=== PATIENT | female | born 1950 | race Caucasian/White ===

== ENCOUNTER 2016-10-29 21:42 | Inpatient (IN) | payer MEDICARE ==
[~2016-10-29] VITALS: Ht 160 cm; Wt 40.9 kg
[~2016-10-29 21:42] MED LIST: ALBU8.5H2 IH; ALEN70TA2 PO; Albuterol/Ipratropium NEB; CEFU250T2 PO; ERGO500029 PO; FLUT12AE8 IH; Hydrocodone/Acetaminophen PO; KLO5T PO; PARO40TA3 PO; PRE20 PO
[2016-10-29 21:45] VITALS: BP 114/76; PULSE 131; RESP 27; O2SAT 93
--- NOTE | 2016-10-29 21:48 | ED.REPORT ---
HPI-General Illness Date of Service Oct 29, 2016 ED Provider: Jose R Talbot MD The patient is a 66 year old female with history of COPD and pneumonia, who presents to the emergency department by EMS for difficulty breathing that has worsened over the last few days. Her symptoms have drastically worsened throughout the day. She has also had a cough and congestion. She was started on Prednisone yesterday. She normally takes Advair, Spiriva, and Nebulizer treatments for her breathing. She was started on home oxygen last week. The patient smokes about 1 PPD. She denies fever, chills or chest pain. Nursing Notes Stated Complaint: DIFFICULTY BREATHING Chief Complaint: Respiratory Complaints Nursing Notes Reviewed: Yes Allergies: Coded Allergies: No Known Allergies (Unverified Allergy, Unknown, 07/11/14) Scheduled Alendronate Sodium (Fosamax) 70 Mg Tablet 70 MG PO QW MONDAYS Cholecalciferol (Vitamin D3) (Vitamin D3) 2,000 Unit Tablet 2,000 UNIT PO QAM Estradiol (Estrace) 42.5 Gm Cream.appl 1 G VG TWICE WEEKLY Fluticasone/Salmeterol (Advair 250-50 Diskus) 60 Puff/Inh Disk 1 PUFF IH BID Paroxetine (Paroxetine) 40 Mg Tablet 40 MG PO HS Prednisone (PredniSONE) 20 Mg Tablet 40 MG PO DAILY 40 mg daily x 3 days then 20 mg daily x 3 days then 10 mg daily x 3 days then 5 mg daily x 3 days then stop. Tiotropium [place] (Spiriva) 18 Mcg Cap.w.dev 18 MCG IH DAILY Scheduled PRN Albuterol HFA (Proair HFA) 8.5 Gm Hfa.aer.ad 1-2 PUFFS IH Q4 PRN PRN For Shortness of Breath Albuterol Neb Soln (Albuterol Neb Soln) 2.5 Mg/3 Ml Vial.neb 2.5 MG INHALATION Q4H PRN PRN For Shortness of Breath Clobetasol Propionate/Emoll (Clobetasol Emollient 0.05% Crm) 15 Gm Cream..g. 1 APPL TOP BID PRN PRN RASH Clonazepam (Clonazepam) 0.5 Mg Tab 0.5-1 MG PO BID PRN PRN For Anxiety Mometasone Furoate (Asmanex) 110 Mcg Aer.pow.ba 110 MCG IH [id number] PRN PRN For Shortness of Breath General Time Seen by MD: 21:45 Chief Complaint Other (shortness of breath) Hx Obtained From: Patient, Spouse, EMS Arrived By: Ambulance Sudden in Onset?: No Symptom Duration: Since onset Severity: Current: No pain currently Severity: Maximum: No pain Recent Healthcare: Recent doctor visit Similar Sx Previous: Yes Past Medical History Past Medical History Psoriasis Pneumonia Reports: COPD Past Surgical History Hip replacement Polyp surgery Family History Noncontributory Smoking History Current Every Day Smoker (1 PPD) Social History Other Social History: Good social support, , Local resident Ambulatory Status Independent Review of Systems Full Review of Systems Constitutional: Denies: Chills, Fever Ears / Nose / Throat: Reports: Nasal congestion Respiratory: Reports: Non-productive cough, Shortness of breath Cardiovascular: Denies: Chest pain Complete sys rev & neg: except as marked. Physical Exam Vital Signs Vital Signs Date Time Temp Pulse Resp B/P Pulse Ox O2 Delivery O2 Flow Rate FiO2 10/29/16 22:33 111 26 98 BiPAP 50 10/29/16 22:31 26 98 50 10/29/16 22:30 110 24 150/74 98 BiPAP 10/29/16 21:45 35.8 131 27 114/76 93 BiPAP Initial VS: Reviewed Head / Eyes: Atraumatic, Normocephalic, PERRL ENT: Mucous membranes moist, Conjunctiva normal, No scleral icterus Neck: Supple, Non-tender, Full range of motion Lymphatic: No lymphadenopathy Extremities: Vascular intact, Neuro intact, No swelling, No tenderness Skin: Warm, Dry, No cyanosis Neurologic: Alert, Oriented, Nonfocal Psychiatric: Mood/affect normal, Behavior normal, Normal thought content General/Constitutional: Awake, Alert Respiratory / Chest: Breath sounds = bilat Wheezing / Retractions: Positive: Prolonged exp phase, Wheezing expiratory On BiPAP with FiO2 of 70 % sating at 96 %. Coarse breath sounds throughout both lung beavers. Cardiovascular: Regular rhythm, Heart sounds NL, No murmurs, No rubs Heart Rate / Rhythm: Positive: Tachycardia Abdomen: Atraumatic, Soft, Non-tender, No guarding, No rebound Interpretation & Diagnostics Lab Results Interpretation Result Diagram: 10/29/16 2145 10/29/16 2145 Test 10/29/16 21:45 White Blood Count 12.6th/mm3 (3.8-10.1) Red Blood Count 4.73mil/mm3 (3.90-5.20) Hemoglobin 15.4g/dL (12.0-15.6) Hematocrit 46.5% (35.0-46.0) Mean Corpuscular Volume 98.3fL (81-100) Mean Corpuscular Hemoglobin 32.6pg (27.0-35.0) Mean Corpuscular Hemoglobin Concent 33.1% (32.0-37.0) Red Cell Distribution Width 13.4% (12.3-15.4) Platelet Count 463bil/L (150-400) Neutrophils (%) (Auto) 78.6% (40-74) Lymphocytes (%) (Auto) 16.0% (14-46) Monocytes (%) (Auto) 5.1% (4-12) Eosinophils (%) (Auto) 0% (0-5) Basophils (%) (Auto) 0.1% (0-3) Sodium Level 132mEq/L (134-144) Potassium Level 5.3mEq/L (3.5-5.2) Chloride Level 93mEq/L (97-108) Carbon Dioxide Level 23mmol/L (18-29) Blood Urea Nitrogen 11mg/dL (8-27) Creatinine 0.49mg/dL (0.57-1.00) Estimat Glomerular Filtration Rate 181mL/min (>59) Glucose Level 206mg/dL (60-99) Calcium Level 10.1mg/dL (8.5-10.1) Total Bilirubin 0.2mg/dL (0.0-1.2) Aspartate Amino Transf (AST/SGOT) 27U/L (0-50) Alanine Aminotransferase (ALT/SGPT) 20U/L (0-32) Alkaline Phosphatase 100U/L (25-165) Troponin T 0.010ug/L (0.0-0.011) Pro-B-Type Natriuretic Peptide 626.1pg/mL (0-301) Total Protein 7.2g/dL (6.4-8.4) Albumin 4.1g/dL (3.4-5.0) Procalcitonin 0.07ng/mL (0.00-0.08) Hold Seth Top Tube Received (Received) ECG Interpretation ECG Interpretation: Sinus tachycardia with a rate of 124 bpm LAD Poor baseline quality EKG Borderline ST elevation in V2 and V3 No acute T wave abnormalities When compared to prior EKG taken on 07/11/2014 the patient is now more tachycardic Time: 22:00 Interpreted by: ED physician X-Ray Chest Interpretation Chest Xray Interpretation: IMPRESSION: Very severe COPD, chronic interstitial prominence. Dictated by: Tyson Beckham M.D. on 10/29/2016 at 22:12 Interpretation / Wet Read by: Interpret - Radiologist Re-Eval/Medical Decision Med Decision/Clinical Course The patient is a 66 year old female with history of COPD and pneumonia, who presents to the emergency department by EMS for difficulty breathing that has worsened over the last few days. Her symptoms have drastically worsened throughout the day. She has also had a cough and congestion. She was started on Prednisone yesterday. She normally takes Advair, Spiriva, and Nebulizer treatments for her breathing. She was started on home oxygen last week. The patient smokes about 1 PPD. She denies fever, chills or chest pain. Upon arrival the patient is in moderate respiratory distress, she has good oxygen saturation on BiPAP with FiO2 of 70%. Pulmonary examination is consistent with severe COPD exacerbation. She was reportedly in the 70s to 80s in the field by EMS. 125 mg of IV methylprednisolone was administered along with a 1 L fluid bolus. She was placed on reil-aq-[id number] DuoNebs, continuous albuterol neb. CXR: Very severe COPD, chronic interstitial prominence. LABS: CBC: mild leukocytosis, otherwise unremarkable, CMP: kidney function WNL, K 5.3, troponin negative Presentation at this time consistent with severe COPD exacerbation. No clinical evidence suggestive that this is related to pulmonary embolism, pneumonia or pneumothorax. Initial screening workup for acute coronary syndrome is negative. Discussed with admitting hospitalist accepted to the ICU for further management. She remains on BiPAP and arterial blood gases are pending at this time. Source of Hx: Old records, EMS, Family Time of Eval: 22:15 Re-Evaluation/Progress Note: Discussed results, diagnosis, and plan for admission. All questions were addressed. Consultation : Referral / Consult Name: Salina Ro DO Consulted With: Hospitalist Requested Call at: 22:44 Call Returned at: 22:49 Oracle Ebs Architect: Will see patient, Agrees with eval, Agrees with plan, Accepts admit Counseled Regarding: Diagnosis, Lab results, Need for admission Discharge & Departure Primary Impression: Acute exacerbation of chronic obstructive pulmonary disease Additional Impressions: Acute respiratory failure Respiratory failure complication: hypoxia Qualified Code: J96.01 - Acute respiratory failure with hypoxia Hypoxia Hyperkalemia Disposition: ADMITTED TO HOSPITAL Discharge Condition All VS Reviewed: Yes Condition: Stable Referrals: Shimon Joshi MD (PCP) Crit Care Except Billable Proc Time Spent: 105-134 minutes Services Performed: Patient management by me, Time spent at bedside, Reviewing test results, Reviewing imaging, Discussing patient care, Documentation in record, Time with fam/surrogate Scribe Attestation Portions of this note were transcribed by Zully Álvarez. I, Dr. Talbot personally performed the history, physical exam and medical decision-making; I reviewed and confirmed the accuracy of the information in the transcribed note. Signed by: Ross Browne, 10/29/2016 at 2300. copies to: Shimon Joshi MD, Beck O MD Oct 29, 2016 21:48 Zully Álvarez Oct 29, 2016 21:54
[2016-10-29] MEDS ORDERED: Albuterol-Ipratropium 3 mL Inhalation Solution ONE (21:50)
[2016-10-29] MEDS ORDERED: Albuterol 0.5% (5mg/mL) 20 mL Inhalation Solution ONE (21:52)
[2016-10-29 21:58] LABS: BASOPHILS % (AUTO) 0.1 % (0-3); EOSINOPHILS % (AUTO) 0 % (0-5); MONOCYTES % (AUTO) 5.1 % (4-12); Mean Corpuscular Hemoglobin 32.6 pg (27.0-35.0); Mean Corpuscular Volume 98.3 fL (81-100); NEUTROPHILS % (AUTO) 78.6 % (40-74); Platelet Count 463 bil/L (150-400)
[2016-10-29] MEDS ORDERED: MethylprednisoLONE Sodium Succinate 62.5 mg/mL 2 mL Inj IVPUSH ONE (22:00)
[2016-10-29] MEDS ORDERED: 0.9% Sodium Chloride 1,000 ML IV ONE (22:00)
--- NOTE | 2016-10-29 22:14 | DRSVH ---
PROCEDURE: X-RAY CHEST ONE VIEW, PORTABLE ([id number]) INDICATIONS: DYSPNEA TECHNIQUE: One view of the chest was acquired. COMPARISON: None. FINDINGS: Surgical changes and devices: None. Lungs and pleura: No pleural effusions or pneumothorax. Lungs are abnormal with a chronic interstit ial prominence and very severe COPD. Mediastinum: Mediastinal contours appear normal. Heart size is normal. Bones and chest wall: No suspicious bony lesions. Overlying soft tissues appear unremarkable. IMPRESSION: Very severe COPD, chronic interstitial prominence. Dictated by: Tyson Beckham M.D. on 10/29/2016 at 22:12 Approved by: Tyson Beckham M.D. on 10/29/2016 at 22:12
[2016-10-29 22:23] LABS: TROPONIN T 0.01 ug/L (0.0-0.011)
[2016-10-29 22:30] VITALS: BP 150/74; PULSE 110; RESP 24; O2SAT 98
[2016-10-29 22:31] VITALS: RESP 26; O2SAT 98
[2016-10-29 22:33] VITALS: PULSE 111; RESP 26; O2SAT 98
[2016-10-29] MEDS ORDERED: Polyethylene Glycol (PEG) 17 Gm Powder PO PRN (23:25)
[2016-10-29] MEDS ORDERED: Alum-Mag Hydrox-Simeth 30 mL Suspension PO PRN (23:25)
[2016-10-29] MEDS ORDERED: Ondansetron 2 mg/mL 2 mL Inj IVPUSH PRN (23:25)
[2016-10-29] MEDS ORDERED: IPRA3AMP IH (23:43)
[2016-10-29 23:47] VITALS: BP 165/81; PULSE 133; RESP 30; O2SAT 98
--- NOTE | 2016-10-29 23:47 | PCM.HPMED ---
Subjective Date of Service Oct 29, 2016 Primary Provider: Admitting Physician: Salina Ro DO Primary Care Physician: Shimon Joshi MD Attending Physician: Salina Ro DO Admit Status: From the Emergency Department, [facility] Telemetry Chief Complaint: Shortness of breath with nonproductive cough and increasing anxiety History of Present Illness: Ms. Elizalde is a pleasant 66-year-old female with a history of chronic respiratory failure secondary to advancing COPD in the setting of ongoing tobacco use, that presented to [facility] with a one-week history of progressive shortness of breath despite home oxygen therapy and outpatient steroid use. She was admitted for evaluation and treatment of acute on chronic respiratory failure likely secondary to exacerbation of COPD. Hospital day 1 Ms. Elizalde shares that for the recent week, she has been progressively short of breath despite home oxygen therapy, with associated increase in anxiety, nonproductive cough, decreased appetite, and inability to sleep. She states that she was recently seen by a air valve repairer in [place] earlier this month, and was prescribed steroid therapy and home oxygen use. She has not noticed an improvement in her symptoms. Home oxygen is reported 3 L continuous. She shares that she has been progressively worsening in terms of her respiratory status since June 2016. She denies any associated fever, chills, nausea, vomiting, abdominal pain, dysuria, headache, acute vision changes, productive cough. is present at time of interview, and he admits to a recent illness prior to this admission where he was experiencing cold-like symptoms, which self resolved without medical intervention. Ms. Elizalde reports that she has been on and off outpatient steroid therapy for many months now, and it was not until earlier this month that she was able to see a air valve repairer. She denies any other medical conditions other than her advancing COPD, ongoing tobacco use, and anxiety with depression. She continues to use tobacco on a daily basis, reporting 15-20 cigarettes per day, which is decreased from her 1.5 packs per day. She has a 50 year smoking history. In the ED, she was immediately placed on BiPAP therapy. Initial vitals reveal temperature 35.8, pulse 131, respiratory rate 27, blood pressure 114/76; initial labs revealed a white count of 12.6, with neutrophil count of 79, sodium 132, potassium 5.3, carbon dioxide 23, and proBNP 626; initial pro- calcitonin 0.07. Initial therapies included azithromycin 500 mg, Solu-Medrol 125mg IV, and nebulizer treatments. She was transferred to [facility] with BiPAP in place, in stable condition. Review of Systems: Complete ROS obtained; pertinent positives and negatives as noted above Allergies Coded Allergies: No Known Allergies (Unverified Allergy, Unknown, 07/11/14) Home Medications Obtained from ED note, verified with patient: Scheduled ([Albuterol/Ipratropium]) 3 ML NEBU 3 ML NEB QID Alendronate Sodium (Fosamax) 70 Mg Tablet 70 MG PO QW Ergocalciferol (Vitamin D2) (Vitamin D2) 50,000 Unit Capsule 50,000 UNIT PO QW Fluticasone Propionate (Flovent HFA 110 mcg) 12 Gm Aer.w.adap 2 PUFFS IH BID Paroxetine (Paroxetine) 40 Mg Tablet 40 MG PO DAILY Prednisone (PredniSONE) 20 Mg Tablet 40 MG PO DAILY 40 mg daily x 3 days then 20 mg daily x 3 days then 10 mg daily x 3 days then 5 mg daily x 3 days then stop. Scheduled PRN ([Hydrocodone/Acetaminophen]) 1 TAB TABLET 1 TAB PO Q6 PRN PRN For Pain Albuterol HFA (Proair HFA) 8.5 Gm Hfa.aer.ad 1-2 PUFFS IH Q4 PRN PRN For Shortness of Breath Clonazepam (Clonazepam) 0.5 Mg Tab 0.5-1 MG PO BID PRN PRN For Anxiety PMH Chronic respiratory failure COPD Anxiety/depression Patient denies any cardiac history including hypertension, previous myocardial infarction, or elevated cholesterol levels. Patient denies diabetes, or any other medical condition other than respiratory Surgical History Right hip replacement Family History Patient denies any knowledge of cardiac or respiratory conditions. States both parents had alcoholism Social History Hx Alcohol Use: No Hx Substance Use: No Hx Tobacco Use: Yes Smoking Status: Current Every Day Smoker (1 PPD) Living Arrangement: with Family (, local) Exam Vital Signs Vital Sign - Last Date Time Temp Pulse Resp B/P Pulse Ox O2 Delivery O2 Flow Rate FiO2 10/29/16 22:33 111 26 98 BiPAP 50 10/29/16 22:30 150/74 10/29/16 21:45 35.8 Exam General: Alert and oriented x3; thin and frail; pleasant and cooperative, in moderate distress secondary to decreased respiratory status HEENT: Atraumatic, EOMI, sclera and icteric, BPAP mask in place, mucous membranes moist Chest: Atraumatic, notably thinned with prominent rib features Cardiac: Accentuated tone secondary to body habitus, tachycardia with rate approximately 120, no murmurs appreciated Respiratory: Poor airflow all beavers with significant expiratory wheeze and coarse sounds throughout; rate in 30s at time of examination Abdomen: Soft, nontender, nondistended; thin Skin: Warm and dry Extremities: No edema appreciated of the lower bilateral extremities Neuro: Cranial nerves II through XII grossly intact, speech without slurring, facial expressions equal and symmetric Psych: Appropriate mood, affect, and responses to questioning Lab and Diagnostics Result Diagram: 10/29/16214410/29/162144 Assessment & Plan Ms. Elizalde is a pleasant 66-year-old female with a history of chronic respiratory failure secondary to advancing COPD in the setting of ongoing tobacco use, that presented to [facility] with a one-week history of progressive shortness of breath despite home oxygen therapy and outpatient steroid use. She was admitted for evaluation and treatment of acute on chronic respiratory failure likely secondary to exacerbation of COPD. Hospital day 1 Acute on chronic respiratory failure, present on admission. Under therapy - Patient reports home oxygen 3 L, continuous - Currently on BiPAP therapy - CXR 10/29: No acute cardiopulmonary process, but evidence of severe COPD with hyperinflated lungs - Awaiting ABG - Treat underlying cause: Likely secondary to exacerbation COPD Suspected acute exacerbation COPD, present on admission. Under evaluation - Patient reports increase in cough, but nonproductive; significant increase in shortness of breath and oxygen requirements - DDx: Infection, ongoing tobacco use, progression of disease - Methyl Pred 125 mg IV q6 - Azithro daily - Respiratory PCR, pro calcitonin, strep pneumo antigen, Legionella antigen ordered - AM labs Leukocytosis, acute, present on admission. Monitored - On admit: WBC 12.6; absence of fever and chills - Patient reports recent use of prednisone therapy as outpatient, likely the cause - Monitor Elevated BNP, chronicity unknown. Presumed stable - On admit: proBNP 626 - No evidence pulmonary edema on initial CXR - Consider echo and addition of Lasix based on repeat imaging Tobacco use disorder, chronic. Ongoing - Patient reports 50 year history of 1-1.5 packs per day - Nicotine 21 mg patch daily - Patient states she knows she needs to quit, but it is difficult - Continue to emphasize dangers of cigarette smoking and oxygen use Protein calorie malnutrition, BMI 15, chronic. Ongoing - Admit: BMI 15 - Dietary/nutrition consultation placed Anxiety, chronic. Under therapy - Patient reports history of anxiety and depression - Continue Paxil - Ativan as needed - PRN: Pain/anti-emetic/anxiety/bowel/fever - DVT: Hep q8 - GI: Not indicated - Diet: General, with dietary consult - Code: Full code Patient status: Due to severity of presenting symptoms, risk of adverse events, and likely course of care, anticipated length of stay is greater than 2 midnight ; patient admitted as inpatient to [facility] Pain Evaluation: Adequate Pain Control GI Prophylaxis: Not indicated VTE Prophylaxis: Sub-Q Heparin (Unfractionated) Resuscitation Status: CPR: Attempt Resuscitation Attending Statement The patient was seen and examined together with house staff on 10/30/16 and I agree with the history, exam and plan as outlined in the note above. Anay Heaton DO Oct 29, 2016 23:47 Salina Ro DO Oct 30, 2016 03:29
[2016-10-29] MEDS ORDERED: ESTR42.52 VG (23:49)
[2016-10-29] MEDS ORDERED: TIOT18CA3 IH (23:49)
[2016-10-29] MEDS ORDERED: ALBU2.5V4 INHALATION (23:49)
[2016-10-29] MEDS ORDERED: CLOB15CR3 TOP (23:49)
[2016-10-29] MEDS ORDERED: ADV250INH IH (23:49)
[2016-10-29] MEDS ORDERED: CHOL200025 PO (23:51)
[2016-10-29 23:58] VITALS: BP 165/81; RESP 30; O2SAT 99
[2016-10-30] VITALS (15 sets, daily range): BP systolic 95–141; BP diastolic 54–88; PULSE 95–129; RESP 18–28; O2SAT 86–98
[2016-10-30] MEDS ORDERED: PARoxetine 20 mg Tablet PO SCH (00:15)
[2016-10-30] MEDS: 0.9% Sodium Chloride 1,000 ML IV SCH ×4 (00:37→19:25)
[2016-10-30] MEDS: Heparin 5,000 Unit/mL Inj SUBQ SCH ×3 (00:38→16:37)
[2016-10-30] MEDS ORDERED: MOME0.132 IH (00:52)
[2016-10-30] MEDS: PARoxetine 20 mg Tablet PO SCH ×2 (00:53→21:07)
--- NOTE | 2016-10-30 01:06 | NUR ---
admit note pt to floor scooted over to bed, bipap placed on pt at 50%, pts SpO2 high 90s, RR mid 30s and HR 130s, pt very anxious about bipap ability to breath, RT and this nurse alone with able to calm pt down a bit. answered most questions for admit, pt denies any pain, tele ST 120-130s. 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
[2016-10-30] MEDS ORDERED: MethylprednisoLONE Sodium Succinate 62.5 mg/mL 2 mL Inj IVPUSH SCH (02:30)
[2016-10-30 02:59] LABS: BASOPHILS % (AUTO) 0 % (0-3); EOSINOPHILS % (AUTO) 0 % (0-5); Mean Corpuscular Hemoglobin 31.7 pg (27.0-35.0); Mean Corpuscular Volume 98.3 fL (81-100); NEUTROPHILS % (AUTO) 95.3 % (40-74); Platelet Count 341 bil/L (150-400)
[2016-10-30] MEDS: Albuterol-Ipratropium 3 mL Inhalation Solution NEB SCH ×5 (03:21→20:03)
[2016-10-30 03:25] LABS: Magnesium 1.9 mg/dL (1.6-2.6); Phosphorus 3.1 mg/dL (2.5-4.9)
[2016-10-30] MEDS: Albuterol 2.5 mg/3 mL Inhalation Solution NEB PRN (03:37)
[2016-10-30] MEDS ORDERED: cefTRIAXone Inj 2,000 MG in Dextrose 5% Minibag Plus 50 ML IV SCH (04:50)
--- NOTE | 2016-10-30 04:59 | ABG ---
DateTimeAnalyzed 04:56:00 -_ pH ____6.976 - 7.350 7.450 pCO2 129 -mmHg 35.0 45.0 pO2 ___75.3__ -mmHg 69.0 116 HCO3- ___28.6__ -mmol/L 22.0 26.0 ABE ___-8.1__ -mmol/L -2.0 2.0 tHb ___13.6__ -g/dL O2Hb ___85.5__ -% COHb ____0.2__ -% MetHb ____0.8__ -% sO2 ___86.4__ -% FIO2 ___50.0__ -% Pressure_Support ___12.0__ -cmH2O PEEP ____5.0__ -cmH2O Set_RR ___18.0__ -b/min Drawn By blf - Date/Time Notified____ 04:58:00 -_ Spontaneous_RR ___20.0__ -b/min Oxygen Device 1 ____BIPAP - Notified By blf - Notified Whom ___DR. SULLENSCRANTON,DR.HERNANDEZ - B 757 -mmHg tO2 ___16.5__ -Vol% Ba test N/A -
[2016-10-30] MEDS ORDERED: Sodium Bicarb (50 mEq) 8.4% 1 mEq/mL 50 mL Syringe ONE (05:09)
[2016-10-30] MEDS ORDERED: fentaNYL 2,500 mCg/250 mL 2,500 MCG in IV Premix 1 EACH IV PRN (05:16)
[2016-10-30] MEDS: Propofol Inj 1,000,000 MCG in IV Premix 1 EACH IV SCH ×2 (05:16→16:39)
[2016-10-30] MEDS ORDERED: Propofol 10,000 mCg/mL 100 mL Inj ONE (05:28)
[2016-10-30] MEDS ORDERED: PIPERACILLIN TAZO IV ONE ×2 (05:30→05:31)
[2016-10-30] MEDS ORDERED: DEXTROSE 5% IV ONE ×2 (05:30→05:31)
[2016-10-30] MEDS ORDERED: PHA MIX IV ONE (05:31)
--- NOTE | 2016-10-30 05:38 | ER ---
[address] [address] EMERGENCY DEPT ADMIT NOTE PATIENT: WILLIE FINLEY : 1950 MR#: [id number] ADMIT: 10/29/2016 JOB ID: [id number] DATE: 10/30/2016 PROCEDURE: Endotracheal intubation. INDICATION: Respiratory failure with hypercarbia and sedation. DESCRIPTION OF PROCEDURE: The patient's potassium was verified as not significantly elevated. Upper denture was removed and secured. No lower denture was in place. Etomidate 20 mg was given for initial induction, followed by 5 mL/100 mg of succinylcholine, with good anesthesia and good relaxation. The resident physician was initially supervised in inserting the René laryngoscope. With my assistance, the cords were visualized and I placed the 7.5 endotracheal tube through the cords under direct visualization. This was verified by end-tidal CO2, and a chest x-ray is now pending. The tube was secured at 21 cm at the teeth. Breath sounds were noted equal bilaterally. Care was returned to the inpatient medical team.
[2016-10-30 05:40] LABS: APPEARANCE,URINE CLOUDY (CLEAR,HAZY); COLOR,URINE YELLOW (YELLOW); OCCULT BLOOD,URINE NEGATIVE (NEGATIVE); UROBILINOGEN,URINE NORMAL (NORMAL)
--- NOTE | 2016-10-30 05:48 | NUR ---
intubated pt respiratory decompensating RT in room unable to wake pt up, ABGs obtained and decision to intubated made, ED intubated, vent setting FiO2 50% with peep 7 TV 370, OG to suction and edwards placed, propofol started. labs drawn, MD called , report given
--- NOTE | 2016-10-30 06:39 | ABG ---
DateTimeAnalyzed 06:36:00 -_ pH ____7.210 - 7.350 7.450 pCO2 ___70.5__ -mmHg 35.0 45.0 pO2 163 -mmHg 69.0 116 HCO3- ___27.2__ -mmol/L 22.0 26.0 ABE ___-2.0__ -mmol/L -2.0 2.0 tHb ___13.1__ -g/dL O2Hb ___97.4__ -% COHb ____0.5__ -% MetHb ____0.8__ -% sO2 ___98.7__ -% FIO2 ___50.0__ -% PRVC 17 - PEEP ____7.0__ -cmH2O Vt __370.0__ -L Drawn By blf - Date/Time Notified____ 06:39:00 -_ Spontaneous_RR ___22.0__ -b/min Oxygen Device 1 VENTILATOR - Notified By blf - Notified Whom ___DR. SULLENBERGER -____ B 757 -mmHg tO2 ___18.2__ -Vol% Ba test N/A -
[2016-10-30] MEDS ORDERED: cefTRIAXone Inj 2,000 MG in Dextrose 5% Minibag Plus 50 ML IV ONE (08:30)
--- NOTE | 2016-10-30 08:49 | DRSVH ---
PROCEDURE: X-RAY CHEST ONE VIEW, PORTABLE ([id number]) INDICATIONS: Post intubation to verify ETT placement TECHNIQUE: One view of the chest was acquired. COMPARISON: [facility], CR, XR CHEST 1VW (PORTABLE), 10/29/2016, 21:43. Chaim Avitia, C R, CHEST 2VW, 09/02/2016, 3:55 PM. FINDINGS: Surgical changes and devices: Endotracheal and nasogastric tube positioning normal. Lungs and pleura: No pleural effusions or pneumothorax. Lungs are abnormal with severe COPD and chr onic mild interstitial prominence.. Mediastinum: Mediastinal contours appear normal. Heart size is normal. Bones and chest wall: No suspicious bony lesions. Overlying soft tissues appear unremarkable. IMPRESSION: Very severe COPD, previously present. Endotracheal and nasogastric tube positioning norm al. Dictated by: Tyson Beckham M.D. on 10/30/2016 at 8:48 Approved by: Tyson Beckham M.D. on 10/30/2016 at 8:48
--- NOTE | 2016-10-30 08:51 | DRSVH ---
PROCEDURE: X-RAY CHEST ONE VIEW, PORTABLE ([id number]) INDICATIONS: s/p intub/poss PTX TECHNIQUE: One view of the chest was acquired. COMPARISON: [facility], CR, XR CHEST 1VW (PORTABLE), 10/30/2016, 5:02. [facility], CR, XR CHEST 1VW (PORTABLE), 10/29/2016, 21:43. FINDINGS: Surgical changes and devices: Endotracheal tube tip extends almost to the rafael, nasogastric tube solorzano s been placed with its side port below the EG junction. Lungs and pleura: No pleural effusions or pneumothorax. Lungs are abnormal with severe COPD. Mediastinum: Mediastinal contours appear normal. Heart size is normal. Bones and chest wall: No suspicious bony lesions. Overlying soft tissues appear unremarkable. IMPRESSION: Severe COPD, endotracheal tube tip approximates the rafael. This could be potentially ob structive depending on patient had a neck positioning and therefore the endotracheal tube is anticipa ciaran to be withdrawn somewhat. Nasogastric tube positioning normal. Dictated by: Tyson Beckham M.D. on 10/30/2016 at 8:48 Approved by: Tyson Beckham M.D. on 10/30/2016 at 8:49
--- NOTE | 2016-10-30 09:41 | ABG ---
DateTimeAnalyzed 09:38:00 -_ pH ____7.412 - 7.350 7.450 pCO2 ___44.6__ -mmHg 35.0 45.0 pO2 137 -mmHg 69.0 116 HCO3- ___27.8__ -mmol/L 22.0 26.0 ABE ____3.3__ -mmol/L -2.0 2.0 tHb ___12.2__ -g/dL O2Hb ___97.5__ -% COHb ____0.8__ -% MetHb ____0.9__ -% sO2 ___99.2__ -% FIO2 ___40.0__ -% PEEP ____5.0__ -cmH2O Set_RR ___20.0__ -b/min Vt __370.0__ -L Drawn By as - Date/Time Notified____ 09:40:00 -_ Spontaneous_RR ___20.0__ -b/min Oxygen Device 1 VENTILATOR - Notified By ams - Notified Whom _dr johnson - B 758 -mmHg tO2 ___16.9__ -Vol% Ba test _Positive -
[2016-10-30] MEDS: MethylprednisoLONE Sodium Succinate 62.5 mg/mL 2 mL Inj IVPUSH SCH ×3 (10:05→22:01)
[2016-10-30] MEDS: Famotidine Inj 20 MG in IV Premix 1 EACH IV SCH ×2 (10:07→21:05)
--- NOTE | 2016-10-30 11:04 | NUR ---
NUTRITION ASSESSMENT: ASSESS: Pt is a 66yo F admitted for COPD exacerbation. Pt was transferred to CCU and intubated due to respiratory distress. Pt is significantly underwt likely due to chronic respiratory distress, current BMI is 14.9kg/m2. Per chart review, pt UBW is ~43kg. Received verbal order than AM to start TF. PMHX: chronic respiratory failure, COPD, Anxiety LABS: Reviewed. Na 131, Cl 96, Rubber Compounder Formulator .33, Glu 155, Alb 4.1 MEDS: Reviewed. Fentanyl GI: 0 BM SKIN: Bertram 15 CURRENT WTS: 38.1kg, BMI 14.9kg/m2, UBW 43kg, IBW: 52.3kg DIET: NPO EST. NEEDS: wt gain, vent Kcals: 840-955kcal/day (22-25kcal/kg) Pro: 45-60g/day (1.2-1.5g/kg) Fluids: ~955ml/day (25ml/kg) NUTRITION DIAGNOSIS: 1.) Inadequate oral intake related to decreased ability to consume sufficient energy as evidenced by current NPO status 2.) Severe pro/kcal malnutrition related to chronic respiratory failure as evidence by pt with BMI of 14.9kg and visible muscle and fat loss. NUTRITION INTERVENTION: 1.) Received verbal to start TF in morning rounds. Due to pts BMI, recommend start TF of Pulmocare at 10ml/hr and hold x24 hrs to monitor tolerance. Will monitor labs closely for signs of re-feeding. If tolerated, recommend advance by 10ml q 12hr until reach goal rate of 28ml/hr to provide 924kcal and 38.5g pro (100% kcal and 85% pro needs) 2.) Once at goal rate, recommend adding 1 packet prosource to better meet protein needs MONITOR / EVAL: NPO, TF start?, labs, wt, GI, POC, nutrition status. Will continue to monitor per high nutrition risk guidelines.
--- NOTE | 2016-10-30 11:51 | PCM.PNMED ---
Subjective Date of Service Oct 30, 2016 Subjective Patient is 66-year-old female with chronic respiratory failure secondary to advancing COPD in the setting of ongoing tobacco use presenting with shortness of breath despite home oxygen therapy and outpatient steroid use and admitted for evaluation and treatment of acute on chronic respiratory failure likely secondary to exacerbation of COPD. Hospital day #2. Overnight the patient required intubation due to increased work of breathing. At time of visit the patient is sedated on fentanyl 25mcg and propofol on PRVC FiO2 50%, PEEP 5, RR 20 and Vt 370. Unable to obtain ROS due patient being sedated and intubated. Exam Vital Signs Vital Sign - Last Date Time Temp Pulse Resp B/P Pulse Ox O2 Delivery O2 Flow Rate FiO2 10/30/16 10:53 99 99/54 95 40 10/30/16 04:50 20 10/30/16 04:18 36.6 BiPAP Intake and Output 10/29/16 10/29/16 10/30/16 Cumulative From/Thru 15:00 23:00 07:00 10/29/16 21:45 - 10/30/16 06:16 Intake Total 1536 ml 1536 ml Balance 1536 ml 1536 ml Intake Oral 100 ml 100 ml IV Total 1436 ml 1436 ml # Voids 2 2 Exam General: Thin; Sedated on ventilator; No acute distress. HEENT: Atraumatic, Endotracheal tube in place Cardiac: Regular rate and rhythm with no murmurs, rubs, or gallops appreciated Respiratory: Clear bilaterally with occasional mild expiratory wheeze Abdomen: Thin, Soft, Nontender Skin: Warm and dry Extremities: No edema appreciated of the lower bilateral extremities Neuro: Sedated Psych: Unable to obtain secondary to sedation IVs and Medications Medications Reviewed: Medications were reviewed in detail Lab and Diagnostics Result Diagram: 10/30/16 0245 10/30/16 0245 Assessment & Plan Patient is 66-year-old female with chronic respiratory failure secondary to advancing COPD in the setting of ongoing tobacco use presenting with shortness of breath despite home oxygen therapy and outpatient steroid use and admitted for evaluation and treatment of acute on chronic respiratory failure likely secondary to exacerbation of COPD. Hospital day #2. 1. Acute on chronic respiratory failure, present on admission. Active - Patient on home oxygen 3 L, continuous - Likely secondary to COPD exacerbation. Chest x-ray without evidence of acute cardiopulmonary process, but evidence of severe COPD with hyperinflated lungs - Current ventilator settings: PRVC FiO2 30%, PEEP 5, RR 20, Vt 370 - Pulmonary/Critical Care following. Recommendations per Pulm/CC appreciated 2. Suspected acute exacerbation of COPD, present on admission. Active - Viral PCR positive for Coronavirus. Droplet and contact precautions - Continue steroids with Solu-Medrol 60 mg IV q6 - DuoNeb Q4 hours - Continue ceftriaxone and azithromycin - Pending labs: strep pneumo urine antigen, Legionella urine antigen, MRSA screen, sputum culture 3. Leukocytosis, acute, present on admission. Resolved - On admit: WBC 12.6 - Possible reactive to outpatient prednisone and acute respiratory distress - Follow with CBC 4. Elevated BNP, chronicity unknown. Presumed stable - On admit: pro-BNP 626 - No evidence of pulmonary edema on initial chest x-ray and physical examination without peripheral edema, JVD 5. Nicotine dependence, chronic. Ongoing - Patient reports 50 year history of 1-1.5 packs per day - Nicotine 21 mg patch daily - Patient states she knows she needs to quit, but it is difficult - Continue to emphasize dangers of cigarette smoking and oxygen use 6. Severe protein calorie malnutrition, BMI 15, chronic. Ongoing - Admit: BMI 15 - Dietary/nutrition following. Recommendations per dietary/nutrition appreciated - Start tube feed 7. Anxiety, chronic. Presumed stable - Continue Paxil - Continue Ativan as needed - PRN: Analgesic/anti-emetic/anxiety/bowel/anti-pyretic Diet: Tube feed Disposition: Patient intubated and placed on ventilator overnight. She is currently in the CCU. Pain Evaluation: Adequate Pain Control GI Prophylaxis: H2 elvia VTE Prophylaxis: Sub-Q Heparin (Unfractionated) Resuscitation Status: CPR: Attempt Resuscitation Attending Statement The patient was seen and examined together with Dr. Heard on 10/30/2016 and I agree with the history, exam and plan as outlined in the note above. . Helder Heard DO Oct 30, 2016 11:35 Guilherme Granados MD Nov 01, 2016 07:46
[2016-10-30] MEDS ORDERED: DEXTROSE 5% IV SCH (14:00)
[2016-10-30] MEDS ORDERED: PIPERACILLIN TAZO IV SCH (14:00)
[2016-10-30] MEDS ORDERED: PHA MIX IV SCH (14:00)
--- NOTE | 2016-10-30 16:20 | PCM.CHPMED ---
Subjective Date of Service: Oct 30, 2016 Provider requesting consult: Guilherme Granados MD Primary Physician: Admitting Physician: Salina Ro DO Primary Care Physician: Shimon Joshi MD Attending Physician: Salina Ro DO Chief Complaint: Chief Complaint: Pulmonary Critical Care medicine consultation Patient is a 66yof with MHx significant for tobacco abuse, severe COPD on home O2, plus anxiety admitted for COPD exacerbation. Pulmonology/Critical Care team asked to evaluate and treat given the higher acuity of care. She initially presented with respiratory distressed, placed on BIPAP, however, unable to tolerate mask due to high agitation. As her anxiety spiral down, she received one dose of Ativan without respiratory improvement. ABG showed pH 6.97 , pCO2 129, pO2 75.3, on FIO2 50, she was thus sedated and intubate for hypoxic hypercapnic respiratory failure. Per report and family, patient felt sick for the past several days, she had dry cough, and not responding to inhaled nebulizer, all the while increased in respiratory distressed. Her noted that she wheezes and cough since last June,. She was not evaluated by char filter operator until recently and was placed on home O2. Home medication includes proair, albuterol neb, advair, asmanex, and prednisone taper. Cannot obtain medical hx or review of system as patient is intubated. History of Present Illness: Not done. patient intubated. PMH Past Medical History Chronic respiratory failure COPD Anxiety/depression Surgical History Right hip replacement Allergies: Coded Allergies: No Known Allergies (Unverified Allergy, Unknown, 07/11/14) Social History Hx Alcohol Use: NoHx Substance Use: NoHx Tobacco Use: Yes Smoking Status: Current Every Day Smoker (1 PPD) Living Arrangement: with Family (, local) Exam Vital Signs Vital Sign - Last Date Time Temp Pulse Resp B/P Pulse Ox O2 Delivery O2 Flow Rate FiO2 10/30/16 12:44 97 104/60 94 30 10/30/16 12:00 Ventilator 10/30/16 12:00 36.8 20 Intake and Output 10/29/16 10/29/16 10/30/16 Cumulative From/Thru 15:00 23:00 07:00 10/29/16 21:45 - 10/30/16 06:16 Intake Total 1536 ml 1536 ml Balance 1536 ml 1536 ml Intake Oral 100 ml 100 ml IV Total 1436 ml 1436 ml # Voids 2 2 General: Other (intubated, frail) Head: Normal, Skull Deformity, Tenderness Eyes: PERRLA, Scleral Icterus (no) Mouth: Mucous Membr Moist/Jette Neck: Supple, Nodes (no ), Other (no jvd) Chest & Lungs: Other (b/l air sound, relatively clear, no wheezes, coarse breath, or crackles, Pectus carinatum) Cardiovascular: Regular Rate/Rhythm, Normal S1, Normal S2, No Murmurs/Rubs/ Gallops Abdomen: Non-tender, Non-distended, No masses Genitourinary: Noble Present Extremities: No cyanosis/clubbing/edma bilat, No heel ulcers present Neurological: Other (cannot evaluate due to sedation) Lab and Diagnostics Result Diagram: 10/30/1624410/30/16244 Assessment & Plan Assessment Patient is a 66yof with MHx significant for tobacco abuse, severe COPD on home O2, plus anxiety admitted for COPD exacerbation, intubated due to hypoxic hypercapnic respiratory failure. Respiratory Viral PCR demonstrate Positive for Coronavirus. This correlates with story that she felt ill several days earlier. Though, she could also have a superimposed post viral pneumonia. Thus imperially treated initially with azithromycin and ceftriaxone, later changed to azithromycin + Zosyn. She does not have any risk of aspiration, thus recommend Azithromycin and ceftriaxone instead and will continue for 5 days. Though, she less likely has a bacterial infection given procalcitonin < 0.5, WBC normalized, and afebrile. We will continue to support her breathing on current ventilation setting. Would like to extubate her sooner, the better. She has severe COPD with severe malnutrition, presumably from increase work of breathing. Possible respiratory support trial in the AM and extubate. She should start nutritional support should she fail extubation tomorrow Problem List # Hypoxic hypercapnic respiratory failure # Severe COPD # Viral pneumonia # Malnutrition PLAN 1. Cont ceftriaxone and Azithromycin, follow up blood culture and procalcitonin 2. Maintain current vent setting, repeat CRx and ABG in the AM 3. Solu-Medrol 60mg Q6 and Duoneb Total time spent 60min Problems: Pain Evaluation: Adequate Pain Control GI Prophylaxis: H2 elvia VTE Prophylaxis: Sub-Q Heparin (Unfractionated) Resuscitation Status: CPR: Attempt Resuscitation Attending Statement CCM Addendum: Above note reviewed, agree with ASS and plan. Please see Dictated consultation for full review. Flavio Bustamante MD Pulm. [facility] Moore,Andre H DO Oct 30, 2016 16:20 Flavio Bustamante MD Oct 30, 2016 17:10
--- NOTE | 2016-10-30 18:17 | CONS ---
[address] [address] CONSULTATION REPORT PATIENT: WILLIE FINLEY : 1950 MR#: [id number] ADMIT: 10/29/2016 JOB ID: [id number] DATE OF SERVICE: 10/30/2016 REQUESTING PHYSICIAN: Salina Ro DO REASON FOR CONSULTATION: Acute respiratory failure and vent management. Dear Dr. Ro: Thank you for asking me to see this patient. The patient is a 66-year-old female who apparently carries a known diagnosis of COPD. There is known documentation of a evaluate her severity of the disease process, but on clinical review and exam, it appears that the patient does have underlying severe COPD and on October 16, 2016, the patient was initiated on home O2 supplementation by Dr. Espinoza whom she saw the first time in pulmonary consultation in [facility]. The patient is currently ventilated and history is mainly obtained by review of the records and also of the discussion with the who states that since June 2016, the patient has not been doing very well and has remained short of breath and for the past few days she was having more concern of congestion and difficulty in breathing and her wheezing was continuing to be worsened. Yesterday prior to admission, her respiratory status got worse to an extent that prompted him to call 911 and the patient was brought to the emergency room for further evaluation. On initial evaluation, the patient was noted to be in respiratory distress and at that time initial arterial blood gas analysis was done which revealed pH of 6.97, pCO2 of 129, pO2 of 75, bicarbonate 28 and saturation was 86%. This ABG was done on 50% FiO2. At that time, the patient was elected to be treated with noninvasive positive pressure ventilatory support and follow-up blood gases were drawn with some improvement in her pCO2 up to 70 and the patient although remained fairly acidotic. Earlier this morning, the patient elected to be intubated for her impending respiratory failure and she was endotracheally intubated and mechanically ventilated and at that time critical care consultation was achieved. On evaluation of the patient, she is on the vent, sedated. History is mainly obtained from her and he does state that she was having very little symptoms of cough and bringing up mucousy secretion but no complaints of fever, chill, chest pain, nausea, vomiting, diarrhea, constipation. He stated that for the past few months, her appetite has been extremely poor and she is not eating much of any food. PAST MEDICAL HISTORY: Significant for underlying COPD of unclear severity, most likely severe in nature, chronic hypoxemic respiratory failure, anxiety, depression. PAST SURGICAL HISTORY: Significant for right hip replacement. ALLERGIES: No known drug allergies. SOCIAL HISTORY: The patient is a current smoker. She smokes up to a pack a day and she has been smoking for most of her life. The patient is . She currently is living with her . REVIEW OF SYSTEMS: Could not be obtained. PHYSICAL EXAMINATION: This morning, her blood pressure was 104/60, pulse is 97, pulse ox 94% on 30% FiO2, temperature 36.8. Lungs are diminished breath sounds bilaterally. Cardiovascular exam: regular. Abdomen is soft. No hepatosplenomegaly. Bowel sounds positive. Extremities: Edema of feet negative. Neurologic exam: No focal deficit appreciated. HEENT exam: Head is normocephalic, atraumatic. Pupils are equal, reacting fully to light. Neck is supple. No JVD appreciated. No thyromegaly. No cervical lymphadenopathy. Skin exam within normal limits. Lymphatic exam: No peripheral lymphadenopathy appreciated. ANCILLARY DATA: Included white count of 9.9, hemoglobin 13.2, hematocrit 41.0, platelets of 341. Sodium is 131, potassium 4.5, chloride 96, bicarb 22, BUN 10, creatinine 0.33, platelets are 155. Chest x-ray: Endotracheal tube is in place. Evidence of hyperinflation. No acute infiltrative process appreciated. Her blood gas pH of 7.21, pCO2 70, pO2 163, bicarb 27 and saturation was 98% on 50% FiO2 in AC setting. ASSESSMENT: 1. Acute respiratory failure (hypoxic and hypercapnic) secondary to: 2. Acute exacerbation of underlying chronic obstructive pulmonary disease secondary to #3 most likely. 3. Secondary to viral infection as the patient's respiratory culture by PCR is positive for jordan virus and there is no acute infiltrative process suggestive of bacterial infection. 4. Severe malnutrition/cachexia. 5. Continued tobacco abuse. PLAN: 1. Will continue full mechanical ventilatory support. 2. Will increase respiratory rate to 20 breaths per minute and will obtain a follow-up blood gas. 3. Will continue steroids 60 mg of Solu-Medrol IV q.6. 4. Will also continue bronchodilators. 5. Will continue antibiotics as initiated including azithromycin and ceftriaxone. 6. Will follow up on respiratory cultures. 7. Will start the patient on nutritional support. 8. Will give the patient IV fluids. 9. Will also place nicotine patch. 10. Will continue DVT and GI prophylaxis. 11. Will continue other supportive care. Will follow along with you. I discussed the case in detail with her . He seems to be understanding. Will follow along with you. Thanks for involving me in the care of this patient. 85 minutes of critical care time provided.
--- NOTE | 2016-10-30 18:45 | NUR ---
Sedation/HR/UOP/Activity Patient a/o, responds appropriately on Propofol at 20 and Fentanyl at 25. Denies discomfort. HR 90-low 100s, ST. UOP this shift is 200 ml total. MDs aware. Turning q 2 hours.
[2016-10-31] VITALS (22 sets, daily range): BP systolic 92–187; BP diastolic 55–101; PULSE 88–133; RESP 11–26; O2SAT 91–100
[2016-10-31] MEDS: Heparin 5,000 Unit/mL Inj SUBQ SCH ×3 (00:41→16:31)
[2016-10-31] MEDS: Albuterol-Ipratropium 3 mL Inhalation Solution NEB SCH ×6 (00:52→20:09)
[2016-10-31 03:09] LABS: BASOPHILS % (AUTO) 0.1 % (0-3); EOSINOPHILS % (AUTO) 0 % (0-5); MONOCYTES % (AUTO) 4.8 % (4-12); Mean Corpuscular Hemoglobin 32.3 pg (27.0-35.0); Mean Corpuscular Volume 99.5 fL (81-100); NEUTROPHILS % (AUTO) 88.6 % (40-74); Platelet Count 339 bil/L (150-400)
[2016-10-31] MEDS: MethylprednisoLONE Sodium Succinate 40 mg/mL Inj IVPUSH SCH ×4 (03:55→19:33)
[2016-10-31] MEDS: Propofol Inj 1,000,000 MCG in IV Premix 1 EACH IV SCH (03:56)
--- NOTE | 2016-10-31 04:47 | NUR ---
P: bronchospastic coughing I: increase fentanyl drip E: RASS -1. Nods yes/no appropriately. Nods no to pain, N/V. When care given initiates bronchospastic productive cough. Increase fentanyl drip from 25mcg to 50mcg, helpful. Propofol at 20mcg. Breathes over vent rate when care given. Tele SR/ST. Low stable BP. Decrease UOP. Tolerating TF at 10ml/hr. Family at bedside through night.
--- NOTE | 2016-10-31 05:04 | ABG ---
DateTimeAnalyzed 04:58:00 -_ pH ____7.425 - 7.350 7.450 pCO2 ___41.8__ -mmHg 35.0 45.0 pO2 ___92.1__ -mmHg 69.0 116 HCO3- ___26.9__ -mmol/L 22.0 26.0 ABE ____2.8__ -mmol/L -2.0 2.0 tHb ___11.9__ -g/dL O2Hb ___96.3__ -% COHb ____0.7__ -% MetHb ____1.0__ -% sO2 ___98.0__ -% FIO2 ___40.0__ -% PEEP ____5.0__ -cmH2O Set_RR ___20.0__ -b/min Vt __370.0__ -L Drawn By RB - Spontaneous_RR ___20.0__ -b/min Oxygen Device 1 VENTILATOR - Notified By RB - Notified Whom KUMAR K, RN - B 760 -mmHg tO2 ___16.2__ -Vol% Ba test _Positive -
[2016-10-31] MEDS: 0.9% Sodium Chloride 1,000 ML IV SCH ×3 (08:50→21:36)
[2016-10-31] MEDS: cefTRIAXone Inj 2,000 MG in Dextrose 5% Minibag Plus 50 ML IV SCH (08:50)
--- NOTE | 2016-10-31 08:50 | DRSVH ---
Formerly [facility] [address] [place] [address] Echocardiogram Report Name: WILLIE FINLEY Study Date: 10/30/2016 Height: 63 in Hospital Exam Location: [facility] Weight: 84 lb Gender: Female BSA: 1.3 m2 : 1950 Age: 66 yrs BP: 111/60 mmHg Reason For Study: COPD Ordering Physician: [facility] Performed By: Tony Marquez Referring Physician: SABRINA HERNANDEZ Interpretation Summary 1. Small left ventricular cavity with normal wall thickness and normal to hyperdynamic systolic function. Estimated EF is 70-75% 2. Grossly normal right ventricular size and systolic function. 3. No evidence for significant valvular pathology No old study for comparison Procedure: A two-dimensional transthoracic echocardiogram with color flow and Doppler was performed. The study quality was technically adequate. There is no prior echocardiogram noted for this patient. The heart rate ranged between 94-97 bpm during the study. Left Ventricle: The left ventricular cavity is small. There is normal left ventricular wall thickness. Mildly elevated outflow tract velocities. The ejection fraction is estimated to be 70-75%. No obvious wall motion abnormalities appreciated. Right Ventricle: The right ventricle grossly appears normal in size with probable normal systolic function. Atria: The left atrium grossly appears normal in size. The right atrium grossly appears normal in size. No color doppler evidence for an ASD. Mitral Valve: The mitral valve leaflets appear borderline thickened, but open well. There is no mitral regurgitation noted. Aortic Valve: The aortic valve is trileaflet. The aortic valve opens well. There is no aortic regurgitation. Tricuspid Valve: The tricuspid valve leaflets are thin and pliable. There is mild tricuspid regurgitation. Right ventricular systolic pressure is estimated to be 21 mmHg plus the clinically estimated CVP which cannot be estimated on this exam. Pulmonic Valve: The pulmonic valve is not well seen, but is grossly normal. There is no pulmonic valvular regurgitation. Great Vessels: The aortic root is normal size. The dimensions of the ascending aorta are normal. Inspiratory collapse cannot be assessed because of mechanical ventilation, thus CVP cannot be estimated.. Pericardium/ Pleura There is no pericardial effusion. There is no pleural effusion. MMode/2D Measurements & Calculations LVIDd LVOT diam LV ortega. diameter/BSA LV sys. diameter/BSA : 3.0 cm (cm/m^2): 2.3 (cm/m^2): 1.4 LVIDs AoV Opening : 1.9 cm FS: 37.9 % Ao root diam IVSd : 0.6cm asc Aorta Diam LVPWd : 0.6cm TAPSE : 1.9 cm Doppler Measurements & Calculations Ao V2 max MV E max enrike MV E/A: 0.65 TR max enrike : 122.6 cm/sec : 75.2 cm/sec Med Peak E' Enrike : 227.7 cm/sec Ao max P.0 mmHg MV A max enrike TR max PG Ao mean P.4 mmHg : 115.0 cm/sec E/E' med: 17.1 : 20.7 mmHg LVOT Max Enrike Lat Peak E' Enrike PA V2 max : 112.4 cm/sec : 83.1 cm/sec E/E' lat: 15.0 PA mean PG KAY(I,D): 2.3 cm E/e' average : 1.5 mmHg sev ratio: 1.0 MV dec time: 0.15 sec Ao V2 mean LV V1 max PG PA V2 mean : 89.4 cm/sec : 58.5 cm/sec Ao V2 VTI: 18.9 cmLV V1 VTI PA pr(Accel) : 19.3 cm : 35.3 mmHg KAY(V,D): 2.1 cm2 KAY indexed to BSA (cm^2/m^2): 1.7 Reading Physician:08:49 AM
[2016-10-31] MEDS: Famotidine Inj 20 MG in IV Premix 1 EACH IV SCH (08:51)
[2016-10-31] MEDS: Albuterol 2.5 mg/3 mL Inhalation Solution NEB PRN ×3 (09:33→23:12)
[2016-10-31] MEDS ORDERED: Haloperidol 5 mg/mL Inj IM ONE (09:35)
--- NOTE | 2016-10-31 09:40 | NUR ---
Pt extubated at 0920, placed on 4 Loxy mask. Has prolonged EE wheeze, given albuterol Tx. Currently on 3LNC Sat 97%, HR, 128, RR 24. Pt states breathing is not too labored, not SOB at this time, family states Pt has audible wheeze at home. is ordering bipap at this time.
--- NOTE | 2016-10-31 09:44 | PCM.PNMED ---
Subjective Date of Service Oct 31, 2016 Subjective Patient is a 66yof with MHx significant for tobacco abuse, severe COPD on home O2, plus anxiety admitted for COPD exacerbation. Pulmonology/Critical Care team asked to evaluate and treat given the higher acuity of care. Stable overnight, tolerating the vent. Minimal sedation, awake, follows commands. She denies any fever, chills, no wbc. BP maintaining. Exam Vital Signs Vital Sign - Last Date Time Temp Pulse Resp B/P Pulse Ox O2 Delivery O2 Flow Rate FiO2 10/31/16 09:01 109 11 130/67 96 30 10/31/16 08:00 36.6 Mechanical Ventilator Intake and Output 10/30/16 10/30/16 10/31/16 Cumulative From/Thru 15:00 23:00 07:00 10/29/16 21:45 - 10/31/16 05:10 Intake Total 875 ml 1223 ml 3634 ml Output Total 200 ml 175 ml 375 ml Balance 675 ml 1048 ml 3259 ml Intake Oral 100 ml IV Total 772 ml 890 ml 3098 ml Tube Feeding 57 ml 173 ml 230 ml Tube Irrigant 46 ml 160 ml 206 ml Output Urine Total 200 ml 175 ml 375 ml # Voids 2 # Bowel Movements 0 0 Exam General: frail, now extubated Head: Normal, Skull Deformity, Tenderness Eyes: PERRLA, Scleral Icterus (no) Mouth: Mucous Membr Moist/[place] Neck: Supple, Nodes (no ), Other (no jvd) Chest & Lungs: Other (b/l air sound, relatively clear, no wheezes, coarse breath, or crackles, Pectus carinatum) Cardiovascular: Regular Rate/Rhythm, Normal S1, Normal S2, No Murmurs/Rubs/ Gallops Abdomen: Non-tender, Non-distended, No masses Genitourinary: Noble Present Extremities: No cyanosis/clubbing/edma bilat, No heel ulcers present Neurological: aox3, moving all four extremities Lab and Diagnostics Result Diagram: 10/31/1625410/31/16254 Assessment & Plan Patient is a 66yof with MHx significant for tobacco abuse, severe COPD on home O2, plus anxiety admitted for COPD exacerbation, intubated due to hypoxic hypercapnic respiratory failure. Respiratory Viral PCR demonstrate Positive for Coronavirus. This correlates with story that she felt ill several days earlier. Though, she could also have a superimposed post viral pneumonia. Thus imperically treated initially with azithromycin and ceftriaxone, later changed to azithromycin + Zosyn. No signs or symptoms of a bacterial infection given procalcitonin <0.5, WBC normalized, and afebrile. Patient improved on IV fluids, steroids, and bronchodilators, now extubated and transitioned to We will continue to support her breathing on current ventilation setting. Would like to extubate her sooner, the better. She has severe COPD with severe malnutrition, presumably from increase work of breathing. Possible respiratory support trial in the AM and extubate. She should start nutritional support should she fail extubation tomorrow Problem List # Hypoxic hypercapnic respiratory failure # Acute on severe COPD # Viral pneumonia # Malnutrition # Anxiety PLAN 1. BIPAP. 2. Cont ceftriaxone for UTI and Azithromycin for the atypicals plus inflation effects, follow up blood culture and procalcitonin 3. Maintain current vent setting, repeat CRx and ABG in the AM 4. Solu-Medrol 60mg and possible switch to prednisone tmw. Cont Duoneb 5. Consider Haldol 2mg IV push for anxiety Total time spent 30min GI Prophylaxis: H2 elvia VTE Prophylaxis: Sub-Q Heparin (Unfractionated) Resuscitation Status: CPR: Attempt Resuscitation Attending Statement [facility] Addendum: Reviwed above note, agree with ASS/Plan. Now Pt. S/P extubation, boerderline respiratory status, significant wheezing. Placed on NIPPV to improve work of breathing. Will cont. steroids , bronchodilators. f/U ABG . also give Haldol on PRN basis. Flavio Bustamante MD Pulm./[facility] Andre Moore DO Oct 31, 2016 09:44 Flavio Bustamante MD Oct 31, 2016 10:28
--- NOTE | 2016-10-31 09:45 | DRSVH ---
PROCEDURE: X-RAY CHEST ONE VIEW, PORTABLE ([id number]) INDICATIONS: COPD, viral pneumonia, intubated TECHNIQUE: One view of the chest was acquired. COMPARISON: [facility], CHEST 2VW, 06/13/2016, 10:03 AM. [facility], CR, XR CHES T 1VW (PORTABLE), 10/30/2016, 6:12. [facility] Tijer[facility], CHEST 2VW, 09/02/2016, 3:55 PM. FINDINGS: Surgical changes and devices: Endotracheal tube tip projected 4.1 cm above the rafael. Nasogastric t ube redemonstrated tube tip extending beyond the GE junction. Lungs and pleura: No pleural effusions or pneumothorax. Diffuse interstitial opacity seen on prior examination decreased on today's study. Lung volumes are increased. There are lucencies bilaterally compatible with emphysematous bullae. Mediastinum: Mediastinal contours appear normal. Heart size is normal. Bones and chest wall: No suspicious bony lesions. Overlying soft tissues appear unremarkable. IMPRESSION: 1. Support lines and tubes as above 2. Emphysema. Dictated by: William Steiner A Interpreted: Boo Arango MD on 10/31/2016 at 9:42 Transcribed by: NELI on 10/31/2016 at 9:44 Approved by: Boo Arango M.D. on 10/31/2016 at 10:25
--- NOTE | 2016-10-31 10:32 | NUR ---
NUTRITION FOLLOW-UP: ASSESS: Pt is a 66yo F admitted for COPD exacerbation. Pt was transferred to CCU and intubated due to respiratory distress. She was able to extubated 10/31. Prior to extubation, TF was running at 10ml/hr and tolerated well. Pt is significantly underwt likely due to chronic respiratory distress. ST eval is currently pending. PMHX: chronic respiratory failure, COPD, Anxiety LABS: Reviewed. [employer] .44, Glu 133, Ca 7.9, Alb 3.1 MEDS: Reviewed. GI: 0 BM SKIN: [place] 13 CURRENT WTS: 39.4kg, BMI 15.4kg/m2, UBW 43kg, IBW: 52.3kg NUTRITION SUPPORT: (OFF) TF of Pulmocare at 10ml/hr. DIET: NPO EST. NEEDS: wt gain Kcals: 840-955kcal/day (22-25kcal/kg) Pro: 45-60g/day (1.2-1.5g/kg) Fluids: ~955ml/day (25ml/kg) NUTRITION DIAGNOSIS: 1.) Inadequate oral intake related to decreased ability to consume sufficient energy as evidenced by current NPO status--IMPROVED W/TF 2.) Severe pro/kcal malnutrition related to chronic respiratory failure as evidence by pt with BMI of 14.9kg and visible muscle and fat loss. --PERSISTS NUTRITION INTERVENTION: 1.) Recommend advance diet per ST. 2.) When pt is a bit more stable, will f/u with high pro/kcal nutrition education MONITOR / EVAL: NPO, ST, labs, wt, GI, POC, nutrition status. Will continue to monitor per high nutrition risk guidelines.
--- NOTE | 2016-10-31 10:56 | PCM.PNMED ---
Subjective Date of Service Oct 31, 2016 Subjective Patient is 66-year-old female with chronic respiratory failure secondary to advancing COPD in the setting of ongoing tobacco use presenting with shortness of breath despite home oxygen therapy and outpatient steroid use and admitted for evaluation and treatment of acute on chronic respiratory failure likely secondary to exacerbation of COPD. Hospital day #3. No overnight events. Patient's spouse is at bedside. Patient is awake and alert. She is undergoing SBT with 04/17. Patient is trying to communicate to me but unable to difficult to comprehend given the endotracheal tube. Exam Vital Signs Vital Sign - Last Date Time Temp Pulse Resp B/P Pulse Ox O2 Delivery O2 Flow Rate FiO2 10/31/16 10:02 124 23 144/77 93 28 10/31/16 09:33 Nasal Cannula 3.00 10/31/16 08:00 36.6 Intake and Output 10/30/16 10/30/16 10/31/16 Cumulative From/Thru 15:00 23:00 07:00 10/29/16 21:45 - 10/31/16 05:10 Intake Total 875 ml 1223 ml 3634 ml Output Total 200 ml 175 ml 375 ml Balance 675 ml 1048 ml 3259 ml Intake Oral 100 ml IV Total 772 ml 890 ml 3098 ml Tube Feeding 57 ml 173 ml 230 ml Tube Irrigant 46 ml 160 ml 206 ml Output Urine Total 200 ml 175 ml 375 ml # Voids 2 # Bowel Movements 0 0 Exam General: Thin; Sedated on ventilator; No acute distress. HEENT: Atraumatic, Endotracheal tube in place Cardiac: Regular rate and rhythm with no murmurs, rubs, or gallops appreciated Respiratory: Expiratory wheezes bilaterally Abdomen: Thin, Soft, Nontender Skin: Warm and dry Extremities: No edema appreciated of the lower bilateral extremities Neuro: Sedated Lab and Diagnostics Result Diagram: 10/31/16 0255 10/31/16 0255 Assessment & Plan Patient is 66-year-old female with chronic respiratory failure secondary to advancing COPD in the setting of ongoing tobacco use presenting with shortness of breath despite home oxygen therapy and outpatient steroid use and admitted for evaluation and treatment of acute on chronic respiratory failure likely secondary to exacerbation of COPD. Hospital day #2. Vent day #2. 1. Acute on chronic respiratory failure, present on admission. Active - Patient on home oxygen 3 L, continuous - Likely secondary to COPD exacerbation. Chest x-ray without evidence of acute cardiopulmonary process, but evidence of severe COPD with hyperinflated lungs - Currently undergoing pressure support trial and tolerating well. Extubation anticipated for later today - Pulmonary/Critical Care following. Recommendations per Pulm/CC appreciated 2. Suspected acute exacerbation of COPD, present on admission. Active - Viral PCR positive for Coronavirus. Droplet and contact precautions - Strep pneumo urine antigen, Legionella urine antigen negative, MRSA screen negative, sputum culture pending - Continue steroids with Solu-Medrol 60 mg IV q6 - DuoNeb Q4 hours - Continue ceftriaxone and azithromycin 3. Leukocytosis, acute, present on admission. Resolved - On admit: WBC 12.6 - Possible reactive to outpatient prednisone and acute respiratory distress - Follow with CBC 4. Elevated BNP, chronicity unknown. Presumed stable - On admit: pro-BNP 626 - No evidence of pulmonary edema on initial chest x-ray and physical examination without peripheral edema, JVD 5. Nicotine dependence, chronic. Ongoing - Patient reports 50 year history of 1-1.5 packs per day - Nicotine 21 mg patch daily - Patient states she knows she needs to quit, but it is difficult - Continue to emphasize dangers of cigarette smoking and oxygen use 6. Severe protein calorie malnutrition, BMI 15, chronic. Ongoing - Admit: BMI 15 - Dietary/nutrition following. Recommendations per dietary/nutrition appreciated - Swallow evaluation following extubation 7. Anxiety, chronic. Presumed stable - Continue Paxil - Continue Ativan as needed - PRN: Analgesic/anti-emetic/anxiety/bowel/anti-pyretic Diet: Tube feeds Disposition: Patient intubated and on ventilator. She is currently in the CCU. Pain Evaluation: Adequate Pain Control GI Prophylaxis: H2 elvia VTE Prophylaxis: Sub-Q Heparin (Unfractionated) Resuscitation Status: CPR: Attempt Resuscitation Attending Statement The patient was seen and examined together with Dr. Heard on 10/31/2016 and I agree with the history, exam and plan as outlined in the note above. . Helder Heard DO Oct 31, 2016 10:56 Guilherme Granados MD Nov 01, 2016 07:48
--- NOTE | 2016-10-31 12:00 | ABG ---
DateTimeAnalyzed 11:55:00 -_ pH ____7.327 - 7.350 7.450 pCO2 ___53.6__ -mmHg 35.0 45.0 pO2 ___87.4__ -mmHg 69.0 116 HCO3- ___27.3__ -mmol/L 22.0 26.0 ABE ____0.9__ -mmol/L -2.0 2.0 tHb ___13.0__ -g/dL O2Hb ___95.3__ -% COHb ____0.6__ -% MetHb ____1.0__ -% sO2 ___96.8__ -% FIO2 ___28.0__ -% CPAP ____5.0__ -cmH2O Set_RR ___12.0__ -b/min Vt __436.0__ -L Drawn By BTL - Date/Time Notified____ 12:00:00 -_ Spontaneous_RR ___15.0__ -b/min Oxygen Device 1 ____BIPAP - Notified By ___Dr. Andre Moore - B 763 -mmHg tO2 ___17.4__ -Vol% Ba test _Positive -
--- NOTE | 2016-10-31 13:44 | NUR ---
Extubation Patient a/o. Sedation meds turned off at beginning of shift and PST was successful, so order to extubate received. Patient was extubated at 0920 to oxymask and then transitioned to bipap. Currently, bipap is at 28% fIO2. Blood gas was rechecked and bipap settings were adjusted. MD aware of all. OGT dcd at the time of extubation. At this point, patient only tolerates bipap off for a 1/2 of a minute for oral care and to blow her nose. Sats drop to upper 80s with that. Patient does not tolerate activity at this time. She is adjusting herself in bed, but keeping on bedrest until breathing improves. NS at 80 ml/hr continues as ordered. Monitoring closely.
--- NOTE | 2016-10-31 14:03 | NUR ---
Orders received. Chart reviewed. Evaluation placed on hold due to BiPap need. Discussed with MD and RN. Will attempt again tomorrow.
[2016-10-31] MEDS: Haloperidol 5 mg/mL Inj IVPUSH PRN ×2 (15:32→22:22)
--- NOTE | 2016-10-31 16:19 | ABG ---
DateTimeAnalyzed 16:13:53 -_ pH ____7.308 - pCO2 ___58.1__ -mmHg pO2 ___76.1__ -mmHg HCO3- ___29.1__ -mmol/L ABE ____2.2__ -mmol/L tHb ___13.1__ -g/dL O2Hb ___94.1__ -% COHb ____1.5__ -% MetHb ___-0.1__ -% sO2 ___95.4__ -% FIO2 ___28.0__ -% CPAP ____5.0__ -cmH2O Set_RR 15 -b/min Vt __450.0__ -L Drawn By BTL - Date/Time Notified____ 16:18:00 -_ Spontaneous_RR 18 -b/min Oxygen Device 1 ____BIPAP - Notified By ___Dr. Andre Moore - B 762 -mmHg K+ ____4.5__ -mmol/L tO2 ___17.4__ -Vol% Ba test _Positive -
--- NOTE | 2016-10-31 16:41 | NUR ---
Social Work: Initial Assessment D: Per EMR review, pt is a 66 year old female admitted for hypoxia, COPD Exacerbation. pt is Medicare with no suppplement, LTC insurance or VA benefits. PCP is Shimon Joshi MD. NOK is Stephen Elizalde, spouse, . AD not completed- info provided by SCIENTIFIC ILLUSTRATOR. Readmit score is high, 6/8. SCIENTIFIC ILLUSTRATOR met with pt and family at bedside. Sw role and contact info provided. See initial assessment. Pt lives at home with her spouse. She was previously I however was struggling with SOB making ambulating difficult. Pt was able to mobilize using a cane and FWW. Pt does not drive and relies on her spouse for transport. pt has never had HH or skilled rehab. SCIENTIFIC ILLUSTRATOR reviewed possible discharge services including HH and SNF. SNF/HH CHOICE LIST PROVIDED. Family is reviewing. PT evaluation is pending however delayed as pt is currently on BIPAP. 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 FARZANEH Erickson Addendum: 10/31/16 at 1647 by ELIZABETH MERINO Amended: Links added.
--- NOTE | 2016-10-31 16:52 | NUR ---
Evaluation completed. Please go to "Notes" then click on "Assessments and Notes" (bottom left corner of screen). Then select appropriate discipline tab on top of screen.
[2016-10-31] MEDS: PARoxetine 20 mg Tablet PO SCH (20:35)
--- NOTE | 2016-10-31 22:40 | ABG ---
DateTimeAnalyzed 22:36:00 -_ pH ____7.320 - 7.350 7.450 pCO2 ___55.4__ -mmHg 35.0 45.0 pO2 145 -mmHg 69.0 116 HCO3- ___27.8__ -mmol/L 22.0 26.0 ABE ____1.2__ -mmol/L -2.0 2.0 tHb ___12.7__ -g/dL O2Hb ___97.7__ -% COHb ____0.5__ -% MetHb ____0.8__ -% sO2 ___99.0__ -% FIO2 ___40.0__ -% Set_RR ___18.0__ -b/min Vt __450.0__ -L Drawn By MK - Date/Time Notified____ 22:40:00 -_ Spontaneous_RR ___22.0__ -b/min Oxygen Device 1 ____BIPAP - Notified By MK - B 767 -mmHg tO2 ___17.7__ -Vol% Ba test _Positive -
[2016-11-01] VITALS (11 sets, daily range): BP systolic 87–183; BP diastolic 3–100; PULSE 88–120; RESP 16–28; O2SAT 92–100
[2016-11-01] MEDS: Albuterol-Ipratropium 3 mL Inhalation Solution NEB SCH ×6 (00:30→20:11)
[2016-11-01] MEDS: Heparin 5,000 Unit/mL Inj SUBQ SCH ×4 (01:05→23:53)
[2016-11-01] MEDS: MethylprednisoLONE Sodium Succinate 40 mg/mL Inj IVPUSH SCH ×4 (03:16→19:49)
[2016-11-01] MEDS: Albuterol 2.5 mg/3 mL Inhalation Solution NEB PRN (04:06)
--- NOTE | 2016-11-01 05:18 | NUR ---
Anxiety Patient has an episode of anxiety "I feel like I can't breath". HR increases to the 130s, SBP 180-200, RR 20s-30s, SpO2 drops to the mid 80s. RT in to assess, gives treatment. ABG done just prior to anxiety episode and was improved. Patient eventually calms down, VS return to normal and she falls asleep. Patient has second episode of increased HR and BP, falls asleep and BP remains 150s-160s, HR 120s-130s, SpO2 mid 90s, patient appears comfortable. MD updated on patient condition with no new orders.
--- NOTE | 2016-11-01 07:08 | PCM.PNMED ---
Subjective Date of Service Nov 01, 2016 Subjective Pulmonology/Critical Care Follow-up Patient is a 66yof with MHx significant for tobacco abuse, severe COPD on home O2, plus anxiety admitted for COPD exacerbation 2nd to viral respiratory infection. Pulmonology/Critical Care team asked to evaluate and treat given the higher acuity of care. Overnight, she struggles with ventilate. AM gas pH 7.32, pCO2 55.4, while pO2 145, and bicarb 27 on Fio2 40%. Patient states increase work breathing. Denies any chest pain with inspiration. No fever chills. She was a bit tachycardic, hypertensive (180's/100). Urine output still quite low ~0.5cc/kg/ hr. She was a bit thirsty. 500cc fluid was given this AM. Exam Vital Signs Vital Sign - Last Date Time Temp Pulse Resp B/P Pulse Ox O2 Delivery O2 Flow Rate FiO2 11/01/16 04:07 133 28 183/100 93 45 11/01/16 03:27 CPAP/BIPAP 11/01/16 03:17 36.6 10/31/16 14:55 3.00 Intake and Output 10/31/16 10/31/16 11/01/16 Cumulative From/Thru 15:00 23:00 07:00 10/29/16 21:45 - 11/01/16 06:05 Intake Total 951 ml 990 ml 5575 ml Output Total 275 ml 350 ml 1000 ml Balance 676 ml 640 ml 4575 ml Intake Oral 100 ml IV Total 951 ml 990 ml 5039 ml Tube Feeding 230 ml Tube Irrigant 206 ml Output Urine Total 275 ml 350 ml 1000 ml # Voids 2 # Bowel Movements 0 Exam General: frail, now intubated Head: Normal, Skull Deformity, Tenderness Eyes: PERRLA, Scleral Icterus (no) Mouth: Mucous Membr dry Neck: Supple, Nodes (no ), Other (no jvd) Chest & Lungs: axillary muscles breathing, decrease air sound throughout, ( Pectus carinatum) Cardiovascular: Regular Rate/Rhythm, Normal S1, Normal S2, No Murmurs/Rubs/ Gallops Abdomen: Non-tender, Non-distended, No masses Genitourinary: Noble Present Extremities: No cyanosis/clubbing/edma bilat, No heel ulcers present Neurological: aox3, moving all four extremities Lab and Diagnostics Result Diagram: 10/31/16 0255 10/31/16 0255 Assessment & Plan Patient is a 66yof with MHx significant for tobacco abuse, severe COPD on home O2, plus anxiety admitted for COPD exacerbation, intubated due to hypoxic hypercapnic respiratory failure. Respiratory Viral PCR demonstrate Positive for Coronavirus. Status post extubation (10/31), she was fatigue, unable to effectively ventilate her on BiPAP overnight. Given the increase work of breathing and the severity of her COPD- emphysema, severe protein/calorie malnutrition, and anticipate that she will need prolong ventilation support. Meet with the family and DPOA concluded that she should be intubated and plan for an elective tracheotomy plus Percutaneous Endoscopic Gastrostomy Tube placement. She may benefit for rodent exterminator subacute care facility in the proceeding days. Patient otherwise, showed no signs or symptoms of active lung infection, no fever, procalcitonin <0.5, WBC elevated though could due to steroids. Urine culture however, grew out Klebsiella pneumonia, will continue ceftriaxone as managed by primary team. Azythromycine also on board, this is for more the antiinflammatories lung effects rather antitypical coverage pna. Problem List # Hypoxic hypercapnic respiratory failure # Acute on severe COPD # Viral pneumonia # Severe protein/calorie Malnutrition # Anxiety PLAN 1. Sedated, intubated, CRx and ABG in the AM. 2. Solu-Medrol 60mg. Cont Duoneb 3. Cont ceftriaxone for UTI and Azithromycin for the atypicals plus antiinflammatory effects, follow up procalcitonin 4. Surgery consulted, trache and peg pending Total time spent 45min GI Prophylaxis: H2 elvia VTE Prophylaxis: Sub-Q Heparin (Unfractionated) Resuscitation Status: CPR: Attempt Resuscitation Attending Statement [facility] Addendum: Above note reviewed, agreed with ASS/Plan Flavio Bustamante MD Pulm./[facility] Andre Moore DO Nov 01, 2016 07:07 Flavio Bustamante MD Nov 04, 2016 09:10
[2016-11-01] MEDS: cefTRIAXone Inj 2,000 MG in Dextrose 5% Minibag Plus 50 ML IV SCH (07:42)
[2016-11-01 07:44] LABS: BASOPHILS % (AUTO) 0.3 % (0-3); EOSINOPHILS % (AUTO) 0 % (0-5); MONOCYTES % (AUTO) 4.5 % (4-12); Mean Corpuscular Hemoglobin 32.1 pg (27.0-35.0); NEUTROPHILS % (AUTO) 90.8 % (40-74); Platelet Count 376 bil/L (150-400)
--- NOTE | 2016-11-01 09:18 | DRSVH ---
PROCEDURE: X-RAY CHEST ONE VIEW, PORTABLE ([id number]) INDICATIONS: pneumonia TECHNIQUE: One view of the chest was acquired. COMPARISON: [facility], CR, XR CHEST 1VW (PORTABLE), 10/31/2016, 5:08. FINDINGS: Endotracheal Surgical changes and devices: Endotracheal and nasogastric tubes been removed. Lungs and pleura: Interval increase in diffuse, widespread bilateral interstitial opacities. Small p leural effusions are present. No pneumothorax. Mediastinum: Mediastinal contours appear normal. Heart size is normal. Bones and chest wall: No suspicious bony lesions. Overlying soft tissues appear unremarkable. IMPRESSION: Increasing diffuse bilateral interstitial opacities suggesting either edema or atypical i nfection. Dictated by: William Steiner RRA Interpreted: Rosita Elaine MD on 11/01/2016 at 9:13 Transcribed by: DANY on 11/01/2016 at 9:15 Approved by: Rosita Elaine MD, PhD on 11/01/2016 at 16:44
--- NOTE | 2016-11-01 10:55 | NUR ---
JOHANNA: CCU patient, DRY CHARGE PROCESS ATTENDANT to follow up with family for JOHANNA
--- NOTE | 2016-11-01 11:01 | PCM.CONPAL ---
Date of Service Nov 01, 2016 Date of Hospital Admission: Oct 29, 2016 at 22:58 Date of Palliative Consult: Nov 01, 2016 Requesting Provider: Guilherme Granados MD Reason Palliative Care Consult: Goals of Care Discussion Hospital Unit @time of consult: Critical Care (room 2011) Palliative Care Recommendation Summary of palliative recommendations: -Symptom management (Pain/other): per Pulmonary Reimbursement Director and [facility] Team Attending. -DPOA/Advanced Directives/POLST: 1. Code: FULL CODE 2. DPOA: 3. No prior AD or POLST 11/01: FCTM held with Chidi, dtrs Shirlene Meneses and kaden Lopez. Drs. Bustamante, Yury and Teresa were also present. Dr. Bustamante gave medical update explaining that pt unable to tolerate any time off biPAP to eat or drink and is getting exhausted because she has to do so much more work on the breathing mask than when she was ventilated on the machine. Dr. Bustamante recommends that the pt be reintubated, vented, get a tracheostomy and PEG. She feels pt will be more comfortable, not require pain meds or sedation. She explained that weaning would then continue at a step-down unit ([facility]) in [facility]. She explained that pt would not be able to talk for about 3 weeks, then a talking valve could be put in her trach. Dr. Bustamante warned that pt's COPD would still progress and even if weaned, she might need to be on a ventilator at night to rest. Dr. Bustamante asked family to make a decision sometime today on reintubation vs. continue bipap with likely failure and need for comfort care. Family approached pt who said she would want to do everything and "not ready to go yet." Plan is to proceed with reintubation, ventilation, tracheostomy and PEG placement. -Family/emotional support: family is fairly cohesive and very supportive of patient. 2 dtrs live closer to [place] and will be able to visit mom at [facility]. -Spiritual support Patient Goals: 1. Continue aggressive respiratory support to include tracheostomy with ventilation, and weaning at [facility] when stable for transfer. Problems: Resuscitation Status Resuscitation Status: CPR: Attempt Resuscitation Limited [facility]ventions: [facility] POLST Updates/Changes Previous POLST?: No Antibiotics: Use ABX if can Prolong Life Artificially Admin Nutrition: Long-Term Nutrition by Tube Feeding (acceptable to patient) POLST Review Outcome: No Change . Symptom management: Dyspnea Pt History History of Present Illness Patient is a 66yyo WMF with MHx significant for tobacco abuse, severe COPD on home O2, anxiety admitted 10/29 for COPD exacerbation 2nd to viral respiratory infection and underwent subsequent brief intubation, then extubated to biPaP on 10/31 a.m. She was discussed in CCU rounds today and is having significant difficulty with extensive work of breathing on biPap and will likely need reintubation. Palliative Care is asked to meet with family (and patient if she is able to interactive enough to respond to interview) to discuss her preferred level of care. Past Medical History Significant PMH Noted: Chronic respiratory failure COPD Anxiety/depression No cardiac history including hypertension, previous myocardial infarction, or elevated cholesterol levels. No diabetes, or any other medical condition other than respiratory Surgical History Right hip replacement Family History Patient denies any knowledge of cardiac or respiratory conditions. States both parents had alcoholism Social History Hx Alcohol Use: No Hx Substance Use: No Hx Tobacco Use: Yes Smoking Status: Current Every Day Smoker (1 PPD) Living Arrangement: lives with Chidi [facility] Medications Current Medications: Current Medications Piperacillin Sod/ Tazobactam Sod 2.25 gm/Dextrose/ Water 50 ml @ 12.5 mls/hr Q8H IV; Start 10/30/16 at 14:00; Stop 10/30/16 at 14:00; Status DC Ceftriaxone Sodium/Dextrose/ Water 50 ml @ 100 mls/hr Q24H IV Last administered on 11/01/16 07:42; Admin Dose 100 MLS/HR; Start 10/31/16 at 08:25 Albuterol/ Ipratropium 3 ml Q4 NEB Last administered on 11/01/16 07:23; Admin Dose 3 ML; Start 10/30/16 at 12:30 Methylprednisolone Sodium Succinate 60 mg Q6 IVPUSH Last administered on 07:42; Admin Dose 60 MG; Start 10/31/16 at 03:27 Haloperidol Lactate 2 mg Q6H PRN IVPUSH Last administered on 10/31/16 22:22; Admin Dose 2 MG; Start 10/31/16 at 11:10 Scheduled Alendronate Sodium (Fosamax) 70 Mg Tablet 70 MG PO QW MONDAYS Cholecalciferol (Vitamin D3) (Vitamin D3) 2,000 Unit Tablet 2,000 UNIT PO QAM Estradiol (Estrace) 42.5 Gm Cream.appl 1 G VG TWICE WEEKLY Fluticasone/Salmeterol (Advair 250-50 Diskus) 60 Puff/Inh Disk 1 PUFF IH BID Paroxetine (Paroxetine) 40 Mg Tablet 40 MG PO HS Prednisone (PredniSONE) 20 Mg Tablet 40 MG PO DAILY 40 mg daily x 3 days then 20 mg daily x 3 days then 10 mg daily x 3 days then 5 mg daily x 3 days then stop. Tiotropium [place] (Spiriva) 18 Mcg Cap.w.dev 18 MCG IH DAILY Scheduled PRN Albuterol HFA (Proair HFA) 8.5 Gm Hfa.aer.ad 1-2 PUFFS IH Q4 PRN PRN For Shortness of Breath Albuterol Neb Soln (Albuterol Neb Soln) 2.5 Mg/3 Ml Vial.neb 2.5 MG INHALATION Q4H PRN PRN For Shortness of Breath Clobetasol Propionate/Emoll (Clobetasol Emollient 0.05% Crm) 15 Gm Cream..g. 1 APPL TOP BID PRN PRN RASH Clonazepam (Clonazepam) 0.5 Mg Tab 0.5-1 MG PO BID PRN PRN For Anxiety Mometasone Furoate (Asmanex) 110 Mcg Aer.pow.ba 110 MCG IH [id number] PRN PRN For Shortness of Breath Objective Findings Exam Vital Sign - Last Date Time Temp Pulse Resp B/P Pulse Ox O2 Delivery O2 Flow Rate FiO2 11/01/16 07:52 120 11/01/16 07:52 36.8 17 138/4 92 11/01/16 07:52 CPAP/BIPAP 11/01/16 07:23 30 10/31/16 14:55 3.00 Intake and Output 10/31/16 10/31/16 11/01/16 Cumulative From/Thru 15:00 23:00 07:00 10/29/16 21:45 - 11/01/16 06:05 Intake Total 951 ml 990 ml 5575 ml Output Total 275 ml 350 ml 1000 ml Balance 676 ml 640 ml 4575 ml Intake Oral 100 ml IV Total 951 ml 990 ml 5039 ml Tube Feeding 230 ml Tube Irrigant 206 ml Output Urine Total 275 ml 350 ml 1000 ml # Voids 2 # Bowel Movements 0 Lab/Diagnostics Lab and Imaging results reviewed in detail in EMR. Time spent Total time 70 minutes; >50% face to face with patient and/or family, providing counselling regarding plans and recommendations, and in care coordination with his/her medical teams. Radha Cotton MD Nov 01, 2016 11:01 Radha Cotton MD Nov 01, 2016 11:01
[2016-11-01] MEDS: 0.9% Sodium Chloride 1,000 ML IV SCH (11:17)
[2016-11-01] MEDS ORDERED: Propofol 10,000 mCg/mL 100 mL Inj ONE (11:25)
--- NOTE | 2016-11-01 11:38 | PCM.CONSUR ---
Subjective Date of Service: Nov 01, 2016 History of Present Illness Mrs. Andie Elizalde is a 66-year-old lady admitted to [facility] for respiratory failure 2nd to viral infection and continued tobacco abuse 50 year hx 1-1.5 ppd. Other PMHx significant for COPD on 3L home O2, anxiety, and depression. She presented to [facility] with a one-week history of progressive shortness of breath despite home oxygen therapy and outpatient steroid use. She was BIPAP dependant and intubated 10/30 with extubation 10/31 to BIPAP/CPAP and failed to progress and reintuabed 11/01. Patient is preparing to be intubated with plans to transfer to [facility]. She denies any associated fever, chills, nausea, vomiting, abdominal pain, dysuria, headache, acute vision changes, productive cough. Reason for Consultation Tracheostomy and PEG tube placement. Allergy Allergies: Coded Allergies: No Known Allergies (Unverified Allergy, Unknown, 07/11/14) Medications Hypertension Medication: No Home Meds Incl Beta Blockers: No Albuterol Neb Soln (Albuterol Neb Soln) 2.5 Mg/3 Ml Vial.neb 2.5 MG INHALATION Q4H PRN PRN For Shortness of Breath (Reported) Last Taken: 3 ML on 10/29/16 Albuterol Neb Soln (Albuterol Neb Soln) 2.5 Mg/ 3 Ml Vial.neb 2.5 MG NEB Q2H PRN PRN For Shortness of Breath Prescribed by: JOSEPH FOX DO Cholecalciferol (Vitamin D3) (Vitamin D3) 2,000 Unit Tablet 2,000 UNIT PO QAM ( Reported) Last Taken: 2,000 UNITS on 10/29/16 0900 Clonazepam (Clonazepam) 0.5 Mg Tab 0.5-1 MG PO BID PRN PRN For Anxiety (Reported) Last Taken: 0.5 MG on Unknown Date & Time Fentanyl Citrate (Fentanyl 0.05 mg /ml Vial) 100 Mcg/2 Ml Vial 50 MCG IVPUSH Q2H PRN PRN For Severe Pain Prescribed by: JOSEPH FOX DO Fluticasone/Salmeterol (Advair 250-50 Diskus) 60 Puff/Inh Disk 1 PUFF IH BID ( Reported) Last Taken: 1 PUFF on 10/29/16 0900 Heparin Sodium,Porcine (Heparin Sodium) 5 ,000 Unit/1 Ml Vial 5,000 UNIT SUBQ Q8 Prescribed by: JOSEPH FOX DO Ipratropium/Albuterol Sulfate (Iprat-Albut 0.5-3(2.5) mg/3 mL Inhalant Soln) 3 Ml Ampul.neb 3 ML NEB Q4 Prescribed by: JOSEPH FOX DO Lorazepam (Lorazepam Inj) 2 Mg/1 Ml Vial 1 MG IVPUSH Q4H PRN PRN For Anxiety or Agitation Prescribed by: JOSEPH FOX DO Methylprednisolone Sod Succ/Pf (Solu-Medrol 40 mg Vial) 40 Mg/1 Ml Vial 60 MG IVPUSH Q6 Prescribed by: JOSEPH FOX DO Nicotine 21 mg/24 hr Patch (Nicotine 21 mg/24 hr Patch) 1 Each Patch.td24 1 PATCH TOPICAL DAILY Prescribed by: JOSEPH FOX DO Paroxetine (Paroxetine) 40 Mg Tablet 40 MG PO HS (Reported) Last Taken: 40 MG on 10/29/16 0900 Tiotropium [place] (Spiriva) 18 Mcg Cap.w.dev 18 MCG IH DAILY (Reported) Last Taken: 18 MCG on 10/29/16 0900 Discontinued Medications Albuterol HFA (Proair HFA) 8.5 Gm Hfa.aer.ad 1-2 PUFFS IH Q4 PRN PRN For Shortness of Breath (Reported) Last Taken: 2 PUFFS on 10/29/16 Alendronate Sodium (Fosamax) 70 Mg Tablet 70 MG PO QW (Reported) MONDAYS Last Taken: 70 MG on 10/21/16 0700 Clobetasol Propionate/Emoll (Clobetasol Emollient 0.05% Crm) 15 Gm Cream..g. 1 APPL TOP BID PRN PRN RASH (Reported) Last Taken: 1 APPLICATION on Unknown Date & Time Estradiol (Estrace) 42.5 Gm Cream.appl 1 G VG TWICE WEEKLY (Reported) Last Taken: 1 GRAM on 10/28/16 Mometasone Furoate (Asmanex) 110 Mcg Aer.pow.ba 110 MCG IH [id number] PRN PRN For Shortness of Breath (Reported) Last Taken: Unknown Dose on 10/29/16 Prednisone (PredniSONE) 20 Mg Tablet 40 MG PO DAILY 40 mg daily x 3 days then 20 mg daily x 3 days then 10 mg daily x 3 days then 5 mg daily x 3 days then stop. Prescribed by: BRANDON BROWN MD Last Taken: 40 MG on 10/29/16 0900 Past Surgical History Surgeries: Yes (LEFT HIP) Patient/Family Past Surgical: Positive for:: Accept Blood Products?, Denies:: Blood Transfuse Reaction, Blood Transfusions Social History Hx Alcohol Use: No Hx Substance Use: No Hx Tobacco Use: Yes PMH HEENT History History of ENT Problems?: Yes HEENT History: Positive for:: Cataracts (jun 2016) Denies:: Glaucoma Cardiovascular History History of Heart Problems?: No Cardiovascular History: Denies:: Cardiac Surgery Chest Pain Congestive Heart Failure Edema Heart Murmur Hypertension Irregular Heartbeat Pacemaker Respiratory History of Respiratory Problem: Yes Respiratory History: Positive for:: COPD (severe) Dyspnea Emphysema Pneumonia Denies:: Asthma Chest Surgery Hemoptysis Tuberculosis Neurological History Hx Neurologic Problems?: No Neurological History: Denies:: Alzheimer's Disease CVA Dementia Dizziness Headaches Parkinson's Disease Seizures Gastrointestinal History HX of GI Problems?: Yes Gastrointestinal History: Denies:: Diverticulitis Gastroesphageal Reflux Gastrointestinal Bleeding Heartburn Hepatitis Hiatal Hernia Rectal Bleeding Genitourinary History Hx of Gu Problems?: Yes Genitourinary History: Positive for: Kidney Stones Urinary Tract Infection Denies: HX of Hemodialysis Other Pertinent History?: pt takes medications for bladder infections Female/Male History Reproductive History Female: Positive for: Problems with Breasts? (fibroids in breasts) Denies: Currently ? Endometriosis Pelvic Inflammatory DX Musculoskeletal History Hx Musculoskeletal Problems?: Yes Musculoskeletal History: Positive for:: Joint Replacement (left hip) Denies:: Back Injury Musculoskeletal Trauma Psycho Social History Hx of Psycho/Social Problems?: Yes Psycho Social History: Positive for:: Anxiety (this admit with SOB) Denies:: Bipolar Disorder Hx Depression Suicide Attempt Other History Other History: Positive for:: Hospitalization (left hip surgery ) Denies:: Cancer Thyroid Disease Diabetes: NoBedside Blood Glucose: 133 Social History Hx Alcohol Use: NoHx Substance Use: NoHx Tobacco Use: Yes Smoking Status: Current Every Day Smoker (1 PPD) Living Arrangement: with Family (, local) Objective Exam Objective Vitals stable aside from respiratory status. Currently BiPAP in place and preparing for Intubation. Labs - WBC elevated 20.9 with left shift Neuts 90.8 receiving high dose IV steroids, Potassium 5.6, creatinine low 0.38, glucose 150, albumin 3.8 Vital Signs & I/O Vital Sign- Last 8 Hours Date Time Temp Pulse Resp B/P Pulse Ox O2 Delivery O2 Flow Rate FiO2 11/01/16 11:14 36.9 113 20 115/3 98 11/01/16 11:14 CPAP/BIPAP 11/01/16 07:52 120 11/01/16 07:52 36.8 120 17 138/4 92 11/01/16 07:52 CPAP/BIPAP 11/01/16 07:23 124 18 135/84 94 30 11/01/16 04:07 133 28 183/100 93 45 Intake and Output- Last 8 Hour 11/01/16 Cumulative From/Thru 07:00 10/29/16 21:45 - 11/01/16 06:05 Intake Total 990 ml 5575 ml Output Total 350 ml 1000 ml Balance 640 ml 4575 ml Intake Oral 100 ml IV Total 990 ml 5039 ml Tube Feeding 230 ml Tube Irrigant 206 ml Output Urine Total 350 ml 1000 ml # Voids 2 # Bowel Movements 0 Lab & Micro Results Laboratory Tests Test 11/01/16 02:27 11/01/16 07:30 Triglycerides Level 97mg/dL (0-149) White Blood Count 20.9th/mm3 (3.8-10.1) Red Blood Count 4.02mil/mm3 (3.90-5.20) Hemoglobin 12.9g/dL (12.0-15.6) Hematocrit 41.8% (35.0-46.0) Mean Corpuscular Volume 104.0fL (81-100) Mean Corpuscular Hemoglobin 32.1pg (27.0-35.0) Mean Corpuscular Hemoglobin Concent 30.9% (32.0-37.0) Red Cell Distribution Width 14.1% (12.3-15.4) Platelet Count 376bil/L (150-400) Neutrophils (%) (Auto) 90.8% (40-74) Lymphocytes (%) (Auto) 3.4% (14-46) Monocytes (%) (Auto) 4.5% (4-12) Eosinophils (%) (Auto) 0% (0-5) Basophils (%) (Auto) 0.3% (0-3) Sodium Level 142mEq/L (134-144) Potassium Level 5.6mEq/L (3.5-5.2) Chloride Level 107mEq/L (97-108) Carbon Dioxide Level 25mmol/L (18-29) Blood Urea Nitrogen 21mg/dL (8-27) Creatinine 0.38mg/dL (0.57-1.00) Estimat Glomerular Filtration Rate 243mL/min (>59) Glucose Level 150mg/dL (60-99) Calcium Level 8.1mg/dL (8.5-10.1) Total Bilirubin 0.2mg/dL (0.0-1.2) Aspartate Amino Transf (AST/SGOT) 61U/L (0-50) Alanine Aminotransferase (ALT/SGPT) 40U/L (0-32) Alkaline Phosphatase 59U/L (25-165) Total Protein 5.7g/dL (6.4-8.4) Albumin 3.8g/dL (3.4-5.0) Microbiology 10/30/16 Blood Culture - Preliminary, Resulted No growth at 2 days; culture examined... 10/30/16 MRSA (PCR) - Final, Complete 10/30/16 Urine Culture - Final, Complete Klebsiella Pneumoniae Result Diagram: 11/01/16 0730 11/01/16 07 Review of Systems: Constitutional: Negative, except as otherwise mentioned in the history above. Ophthalmologic: Negative, except as otherwise mentioned in the history above. Cardiovascular: Negative, except as otherwise mentioned in the history above. Respiratory: Negative, except as otherwise mentioned in the history above. Gastrointestinal: Negative, except as otherwise mentioned in the history above. Genitourinary: Negative, except as otherwise mentioned in the history above. Musculoskeletal: Negative, except as otherwise mentioned in the history above. Neurological: Negative, except as otherwise mentioned in the history above. Psychiatric: Negative, except as otherwise mentioned in the history above. Hematologic/Lymphatic: Negative, except as otherwise mentioned in the history above. Allergic/Immunologic: Negative, except as otherwise mentioned in the history above. H&P Surgical Exam Exam General: Other (intubated, frail) Additional Information FiO2, temperature 36.8. Lungs are diminished breath sounds bilaterally. Cardiovascular exam: regular rate and rhythm Resp: Pressure dependant, BIPAP in place. Preparing for intubation. Abdomen is soft. non distended, non tender. No hepatosplenomegaly. Bowel sounds positive. Extremities: No edema. Neurologic exam: No focal deficit appreciated. HEENT exam: Head is normocephalic, atraumatic. Pupils are equal, reacting fully to light. Neck is supple. No JVD appreciated. No thyromegaly. No cervical lymphadenopathy. Skin exam within normal limits. Assessment & Plan Assessment Tracheostomy and PEG tube placement. Other medical conditions. 1. Acute respiratory failure (hypoxic and hypercapnic) secondary to: 2. Acute exacerbation of underlying chronic obstructive pulmonary disease secondary to #3 most likely. 3. Secondary to viral infection as the patient's respiratory culture by PCR is positive for jordan virus and there is no acute infiltrative process suggestive of bacterial infection. 4. Urinary tract infection, present on admission. Active 5. Leukocytosis, acute, present on admission. Resolved 6. Severe malnutrition/cachexia. 7. Tobacco abuse. 8. Elevated BNP, chronicity unknown. Presumed stable 9. Nicotine dependence, chronic. Ongoing 10. Severe protein calorie malnutrition, BMI 15, chronic. Ongoing 11. Anxiety, chronic. Presumed stable VTE Prophylaxis: Sub-Q Heparin (Unfractionated) Plan: Vitals stable aside from respiratory status. No known allergies. Last PO intake 3-4 days ago. No reported BM's or flatus, no abdominal distention/tenderness on exam or concern for SBO. Continue IV fluids. Continue IV Abx - Azithromycin/Ceftriaxone DVT prophylaxis - last received Sub Q, Q8 5k heparin 0745 this AM. PT/INR pending. Patient agrees to intubation then tracheostomy and PEG placement. is DPOA and also agrees. Pulmonary team managing ventilator and other medical conditions. Thank you for this most interesting consult. Resuscitation Status: CPR: Attempt Resuscitation Limited Interventions: Intubation w [facility] Vent Attending Statement: I personally examined the pt. I agree with Dr. Casanova's assessment and plan. Will proceed to trach and PEG. BRODY CASANOVA DO Nov 01, 2016 11:38 Vasyl Joy MD November 11, 2016 09:32 Thank you for this most interesting consult. Resuscitation Status: CPR: Attempt Resuscitation Limited Interventions: Intubation w Mech Vent BRODY CASANOVA DO Nov 01, 2016 11:38
--- NOTE | 2016-11-01 11:58 | PCM.PNMED ---
Subjective Date of Service Nov 01, 2016 Subjective Patient is 66-year-old female with chronic respiratory failure secondary to advancing COPD in the setting of ongoing tobacco use presenting with shortness of breath despite home oxygen therapy and outpatient steroid use and admitted for evaluation and treatment of acute on chronic respiratory failure likely secondary to exacerbation of COPD. Hospital day #4. No overnight events. Patient was extubated yesterday and has since remained on BiPAP. Exam Vital Signs Vital Sign - Last Date Time Temp Pulse Resp B/P Pulse Ox O2 Delivery O2 Flow Rate FiO2 11/01/16 11:14 36.9 113 20 115/3 98 11/01/16 11:14 CPAP/BIPAP 11/01/16 07:23 30 10/31/16 14:55 3.00 Intake and Output 10/31/16 10/31/16 11/01/16 Cumulative From/Thru 15:00 23:00 07:00 10/29/16 21:45 - 11/01/16 06:05 Intake Total 951 ml 990 ml 5575 ml Output Total 275 ml 350 ml 1000 ml Balance 676 ml 640 ml 4575 ml Intake Oral 100 ml IV Total 951 ml 990 ml 5039 ml Tube Feeding 230 ml Tube Irrigant 206 ml Output Urine Total 275 ml 350 ml 1000 ml # Voids 2 # Bowel Movements 0 Exam General: Thin; No acute distress HEENT: Atraumatic, BiPAP mask in place Cardiac: Regular rate and rhythm with no murmurs, rubs, or gallops appreciated Respiratory: Decreased breath sounds bilaterally; No wheezes; Increased work of breathing Abdomen: Thin, Soft, Nontender Skin: Warm and dry Extremities: No edema appreciated of the lower bilateral extremities Neuro: Grossly neurologically intact IVs and Medications Medications Reviewed: Medications were reviewed in detail Lab and Diagnostics Result Diagram: 11/01/1672911/01/16729 Assessment & Plan Patient is 66-year-old female with chronic respiratory failure secondary to advancing COPD in the setting of ongoing tobacco use presenting with shortness of breath despite home oxygen therapy and outpatient steroid use and admitted for evaluation and treatment of acute on chronic respiratory failure secondary to acute exacerbation of COPD. Hospital day #4. 1. Acute on chronic respiratory failure, present on admission. Active - Patient on home oxygen 3 L, continuous - Secondary to COPD exacerbation - Patient currently on BiPAP following extubation on 10/31. Her breathing is labored. Family wishes to proceed with re-intubation, trach and PEG tube with likely transfer in the near future to LTAC - Pulmonary/Critical Care following. Recommendations per Pulm/CC appreciated - General Surgery to see patient for trach and PEG tube. Recommendations per General Surgery appreciated 2. Acute exacerbation of COPD, present on admission. Active - Viral PCR positive for Coronavirus. Droplet and contact precautions - Negative studies: Strep pneumo urine antigen, Legionella urine antigen, MRSA screen, sputum culture - Continue Solu-Medrol 60 mg IV q6 - DuoNeb Q4 hours - Continue ceftriaxone and azithromycin 3. Urinary tract infection, present on admission. Active - Urine culture positive for Klebsiella pneumoniae - Continue ceftriaxone (started 10/31) 4. Leukocytosis, acute, present on admission. Resolved - On admit: WBC 12.6 - Possible reactive to outpatient prednisone and acute respiratory distress - Follow with CBC 5. Elevated BNP, chronicity unknown. Presumed stable - On admit: pro-BNP 626 - No evidence of pulmonary edema on initial chest x-ray and physical examination without peripheral edema, JVD 6. Nicotine dependence, chronic. Ongoing - Patient reports 50 year history of 1-1.5 packs per day - Discussed smoking cessation - Nicotine 21 mg patch daily 7. Severe protein calorie malnutrition, BMI 15, chronic. Ongoing - Admit: BMI 15 - Dietary/nutrition following. Recommendations per dietary/nutrition appreciated 8. Anxiety, chronic. Presumed stable - Continue Paxil - Continue Ativan as needed - PRN: Analgesic/anti-emetic/anxiety/bowel/anti-pyretic Disposition: She is currently in the CCU with plans to re-intubate as her breathing is labored GI Prophylaxis: H2 elvia VTE Prophylaxis: Sub-Q Heparin (Unfractionated) Resuscitation Status: CPR: Attempt Resuscitation Attending Statement The patient was seen and examined together with House Staff/Resident on 11/01/16 and I agree with the history, exam and plan as outlined in the note above. Helder Heard DO Nov 01, 2016 11:28 Ozzy Burger Nov 05, 2016 19:26
--- NOTE | 2016-11-01 12:18 | DRSVH ---
PROCEDURE: X-RAY CHEST ONE VIEW, PORTABLE ([id number]) INDICATIONS: INTUBATION PLACEMENT TECHNIQUE: One view of the chest was acquired. COMPARISON: [facility], CR, XR CHEST 1VW (PORTABLE), 10/31/2016, 5:08. [facility], CR, XR CHEST 1VW (PORTABLE), 11/01/2016, 7:29. FINDINGS: Surgical changes and devices: There is an endotracheal tube 2 cm above rafael. Lungs and pleura: The lungs are hyperinflated consistent with COPD. No pleural effusions or pneumoth orax. Mediastinum: Mediastinal contours appear normal. Heart size is normal. Bones and chest wall: No suspicious bony lesions. Overlying soft tissues appear unremarkable. IMPRESSION: The endotracheal tube is 2 cm above rafael. Dictated by: Boo Arango M.D. on 11/01/2016 at 12:16 Approved by: Boo Arango M.D. on 11/01/2016 at 12:17
--- NOTE | 2016-11-01 12:21 | NUR ---
Palliative Care Palliative Care received verbal order form Dr Moore 10/31/16 (late in day) to assist with goals of care. Patient is a 66 year old woman with chronic respiratory failure secondary to advancing COPD. She was admitted 10/29/16. Patient lives at home with her . Stephen Elizalde () [phone] Palliative Care to follow. Gisele Paz
[2016-11-01 12:27] LABS: INR 1.15 ratio
[2016-11-01] MEDS: Propofol Inj 1,000,000 MCG in IV Premix 1 EACH IV SCH (12:40)
[2016-11-01] MEDS ORDERED: Sodium Chloride LOK Flush 10 mL Syringe IVFLUSH PRN ×2 (12:50)
--- NOTE | 2016-11-01 12:51 | NUR ---
Pt intubated at 1145hrs Decision to intubate as pt was deteriorating, "wearing out" respiratory wilde. Family conferenced with pt and then with MD's and decision was made to intubate and then this afternoon trach and PEG tube to be placed by surgeon in the OR. Intubation went smoothly and pt received ativan 2mg as well as 100mg of Propofol for intubation. Pt is now on propofol gtt for sedation. NS bolus was given prior to intubation, 500cc an additional 250cc after per Dr. Bustamante. Post intubation CXR completed, sputum sent. Pt will also be having a PICC line placed and IVT has been notified. Family have been updated several times today by MD's.
--- NOTE | 2016-11-01 12:54 | NUR ---
NUTRITION FOLLOW-UP: ASSESS: 66 YO female admitted with acute on chronic respiratory distress secondary to advancing COPD exacerbation in the setting of ongoing tobacco use, requiring intubation. She was able to extubated 10/31 to BiPAP; however, although her diet was advanced to stimulation texture, she was unable to tolerate being off BiPAP at all. Per family meeting today, patient and family wish to proceed with re-intubation, tracheostomy and PEG tube placement, with likely transfer in the near future to [facility]. Enteral feeding orders rewritten and placed in chart for provider authorization, when appropriate. Code status remains full. PMHX: Chronic respiratory failure, COPD, Anxiety LABS: Reviewed. Cr 0.44, Glu 133, Ca 7.9, Alb 3.1. MEDS:Reviewed. Solu-medrol, propofol to be restarted once pt. intubated. GI: No BM documented since admit x 3 D. SKIN: Bert[place] 10 today. WT: 39.4 kg, BMI 15.4 kg/m2, UBW 43kg, IBW: 52.3kg NUTRITION SUPPORT: (OFF) Enteral feeding, Pulmocare at 10ml/hr. DIET: NPO EST. NEEDS: wt gain, vent Kcals: 840-955kcal/day (22-25kcal/kg) Pro: 45-60g/day (1.2-1.5g/kg) Fluids: ~955ml/day (25ml/kg) NUTRITION DIAGNOSIS: 1) Inadequate oral intake related to decreased ability to consume sufficient energy as evidenced by current NPO status - PERSISTS. 2) Severe pro/kcal malnutrition related to chronic respiratory failure as evidence by pt with BMI of 14.9 kg and visible muscle and fat loss - PERSISTS. NUTRITION INTERVENTION: 1) Recommend restart Pulmocare enteral formula at 10ml/hr and hold x 6 hrs to monitor tolerance. Will monitor labs closely for signs of re-feeding. If tolerated, recommend advance by 10ml q 12hr until reach goal rate of 28ml/hr to provide 924 kcal and 38.5 g pro (100% kcal and 85% pro needs). 2) In addition, recommend adding 1 packet ProSource per day to better meet protein needs. MONITOR / EVAL: NPO status, tracheostomy / PEG tube placement status, labs, wt, GI, POC, nutrition status. Will continue to monitor per high nutrition risk guidelines.
[2016-11-01] MEDS ORDERED: Rocuronium 10 mg/mL 5 mL Inj ONE (13:24)
[2016-11-01] MEDS ORDERED: fentaNYL-PF 50 mCg/mL 2 mL Inj ONE (13:24)
--- NOTE | 2016-11-01 14:03 | ABG ---
DateTimeAnalyzed 13:58:00 -_ pH ____7.391 - 7.350 7.450 pCO2 ___42.4__ -mmHg 35.0 45.0 pO2 138 -mmHg 69.0 116 HCO3- ___25.2__ -mmol/L 22.0 26.0 ABE ____0.6__ -mmol/L -2.0 2.0 tHb ___11.0__ -g/dL O2Hb ___97.7__ -% COHb ____0.7__ -% MetHb ____1.0__ -% sO2 ___99.4__ -% FIO2 ___40.0__ -% PEEP ____5.0__ -cmH2O Set_RR ___16.0__ -b/min Vt __370.0__ -L Drawn By btl - Date/Time Notified____ 14:03:00 -_ Spontaneous_RR ___16.0__ -b/min Oxygen Device 1 VENTILATOR - Notified By btl - Notified Whom ___Dr. Andre johnson - B 764 -mmHg tO2 ___15.3__ -Vol% Ba test _Positive -
--- NOTE | 2016-11-01 14:06 | OP ---
[address] [address] OPERATIVE REPORT PATIENT: WILLIE FINLEY : 1950 MR#: [id number] ADMIT: 10/29/2016 JOB ID: [id number] DATE OF SURGERY: 11/01/2016 SURGEON: Flavio Bustamante M.D. PREOPERATIVE DIAGNOSIS(ES): Endotracheal intubation. POSTOPERATIVE DIAGNOSIS(ES): Endotracheal intubation. INDICATION: Failed extubation secondary to acute exacerbation of COPD/end-stage COPD, continued to require continuous noninvasive positive pressure ventilatory support and failed extubation. COMPLICATIONS NOTED: None. PROCEDURE DETAIL: The patient was initially given 2 mg of Ativan and then 10 mL of Propofol was given in incremental doses and the patient was initially hyperventilated and saturation up to 99% was achieved by Ambu bagging and then first attempt was made by the diagnostic medical sonographer with MAC 3 blade and ET tube of 7.5 and intubation was not successful and second attempt was made by me and Leidy blade #4 was used and ET tube 7.5 was placed through the vocal cords under direct visualization into the trachea and cuff of the ET tube was inflated. Tube placement was confirmed by end tidal CO2 monitoring and color change and also good bilateral breath sounds and saturation up to 99%. Tube was tied at 22 cm at the lips and a stat chest x-ray was requested for confirmation of the tube placement. No acute complications noted. The patient tolerated the procedure well.
--- NOTE | 2016-11-01 14:50 | NUR ---
Social Work: Continued Discharge Planning D: Pt discussed with . Pt was extubated to BIPAP on 10/31 however was not tolerating being off BIPAP and required re-intubation this morning. MD states that the family is opting for a Trach/PEG placement and would like PLANT CULTURE MANAGER to place referral to [facility]. gear lapper updated NATURALIZATION EXAMINER who will provide referral to Chhaya with [facility]. A: Pt who is currently vented and having a Trach/PEG placement today. P: Whitney reviewing pt for possible admission. PLANT CULTURE MANAGER to continue to follow. FARZANEH Erickson
[2016-11-01] MEDS: fentaNYL-PF 50 mCg/mL 2 mL Inj IVPUSH PRN ×2 (15:19→22:54)
--- NOTE | 2016-11-01 16:31 | DRSVH ---
PROCEDURE: X-RAY PICC LINE PLACEMENT BY NURSE ([id number]) INDICATIONS: iv access COMPARISON: None. FINDINGS: PICC was placed by the intravenous therapy team from the right side. Fluoroscopic spot fi lm demonstrates tip projected over the lower SVC. IMPRESSION: Tip of PICC projected over the lower SVC . Dictated by: William VASQUEZA Interpreted: Rosita Elaine MD on 11/01/2016 at 16:29 Transcribed by: DANY on 11/01/2016 at 16:30 Approved by: Rosita Elaine MD, PhD on 11/01/2016 at 16:46
[2016-11-01] MEDS ORDERED: Lactated Ringer's 1,000 ML IV ONE ×2 (17:13)
--- NOTE | 2016-11-01 17:13 | PCM.HPANE ---
Patient Data Surgeon Admitting Provider:Salina Ro DO Attending Provider:Salina Ro DO Primary Care Physician:Shimon Joshi MD Other Provider: Reason for Visit Hypoxia,Copd Exacerbation Ht/WT & BMI Height (Feet): 5 Height (Inches): 3.00 Weight (Kilograms): 39.400 Body Mass Index 14.88 Allergies Coded Allergies: No Known Allergies (Unverified Allergy, Unknown, 07/11/14) Past Anesthesia History Anesthesia History: Denies:: Abnormal Airway, Anesthesia Reactions, Difficult Intubation, Fam Anesthesia Reaction, Fam Malignant Hypertherm, Malignant Hyperthermia Diabetes History Hx Diabetes?: No Current Bedside Blood Glucose: 133 MRSA MRSA: No Medications Hypertension Medication: No Home Meds Incl Beta Jackeline: No Active Scripts Prednisone (PredniSONE)20 Mg Oibajm92 Mg PO DAILY 12 Days 40 mg daily x 3 days then 20 mg daily x 3 days then 10 mg daily x 3 days then 5 mg daily x 3 days then stop. Prov:Gael Avila MD 07/16/14 Reported Medications Mometasone Furoate (Asmanex)110 Mcg Aer.pow.ba110 Mcg IH O3GOBFC PRN For Shortness of Breath 10/30/16 Cholecalciferol (Vitamin D3) (Vitamin D3)2,000 Unit Tablet2,000 Unit PO QAM 10/29/16 Clobetasol Propionate/Emoll (Clobetasol Emollient 0.05% Crm)15 Gm Cream..g.1 Appl TOP BID PRN RASH #1 TUBE 10/29/16 Estradiol (Estrace)42.5 Gm Cream.appl1 G VG TWICE WEEKLY #1 TUBE Ref 0 10/29/16 Tiotropium [place] (Spiriva)18 Mcg Cap.w.dev18 Mcg IH DAILY #1 PKG Ref 0 10/29/16 Fluticasone/Salmeterol (Advair 250-50 Diskus)60 Puff/Inh Disk1 Puff IH BID #1 DISK Ref 0 10/29/16 Albuterol Neb Soln 2.5 Mg/3 Ml Vial.neb2.5 Mg INHALATION Q4H PRN For Shortness of Breath Ref 0 10/29/16 Paroxetine 40 Mg Gnldlw93 Mg PO HS 30 Days Ref 0 07/11/14 Alendronate Sodium (Fosamax)70 Mg Djkwtv24 Mg PO QW 30 Days Ref 0 Mondays07/11/14 Clonazepam 0.5 Mg Tab0.5-1 Mg PO BID PRN For Anxiety 30 Days Ref 0 07/11/14 Albuterol HFA (Proair HFA)8.5 Gm Hfa.aer.ad1-2 Puffs IH Q4 PRN For Shortness of Breath #1 INHALER 07/11/14 Discontinued Reported Medications Ipratropium/Albuterol Sulfate (Iprat-Albut 0.5-3(2.5) mg/3 mL Inhalant Soln)3 Ml Ampul.neb3 Ml IH QID Ref 0 10/29/16 Ergocalciferol (Vitamin D2) (Vitamin D2)50,000 Unit Myvqqtq41,000 Unit PO QW 30 Days 07/11/14 Fluticasone Propionate (Flovent HFA 110 mcg)12 Gm Aer.w.adap2 Puffs IH BID #12 GM Ref 0 07/11/14 Discontinued Scripts [Hydrocodone/Acetaminophen] ([place] 5-325)1 TAB TABLET No Conflict Check1 Tab PO Q6 PRN For Pain #14 TABLET Prov:Gael Avila MD 07/16/14 Cefuroxime Axetil (Ceftin)250 Mg Iukikv966 Mg PO BID #14 TABLET Prov:Gael Avila MD 07/16/14 [Albuterol/Ipratropium] (DuoNEB)3 ML NEBU No Conflict Check3 Ml NEB QID 30 Days Prov:Gael Avila MD 07/16/14 History History of ENT Problems?: Yes HEENT History: Positive for:: Cataracts (jun 2016) Denies:: Glaucoma Denture Type: Full- Upper Full- Lower Teeth Condition: Within Normal Limits Broken Teeth Hx of Heart Problems?: No Cardiovascular History: Denies:: Cardiac Surgery Chest Pain Congestive Heart Failure Edema Heart Murmur Hypertension Irregular Heartbeat Pacemaker Hx of Respiratory Problem?: Yes Respiratory History: Positive for:: COPD (severe) Dyspnea Emphysema Pneumonia Denies:: Asthma Chest Surgery Hemoptysis Tuberculosis Other History/Comment Currently intubated in the CCU secondary to acute on chronic respiratory failure related to COPD. Hx Neurologic Problems?: No Neurological History: Denies:: Alzheimer's Disease CVA Dementia Dizziness Headaches Parkinson's Disease Seizures Hx of GI Problems?: Yes Hx of Problems?: Yes Genitourinary History: Positive for:: Kidney Stones Urinary Tract Infection Denies:: HX of Hemodialysis HX of Peritoneal Dialysis: No Other Pertinent History: pt takes medications for bladder infections Female Hx: Positive for:: Problems with Breasts? (fibroids in breasts) Denies:: Currently Endometriosis Pelvic Inflammatory Hx Musculoskeletal Problems?: Yes Musculoskeletal History: Positive for:: Joint Replacement (left hip) Denies:: Back Injury Musculoskeletal Trauma Hx of Psycho/Social Problems?: Yes Psycho Social History: Positive for:: Anxiety (this admit with SOB) Denies:: Bipolar Disorder Hx Depression Suicide Attempt Hx Surgeries?: Yes (LEFT HIP) Other History: Positive for:: Hospitalization (left hip surgery ) Denies:: Cancer Thyroid Disease History Blood Transfusions: Positive for:: Accept Blood Products? Denies:: Blood Transfuse Reaction Blood Transfusions Hx Diabetes: NoBedside Blood Glucose: 133 Hx Alcohol Use: NoHx Substance Use: No Smoking Status: Current Every Day Smoker (1 PPD) Have You Smoked inLast 12 mo: YesApprox How Many Cigarettes/day: pack a day Stop/Bang Do You Have a CPAP Machine?: No S-Snoring: Do You Snore Loudly: No T-Tired: feel tired, fatigued: No O-Obsered: Observed not breath: No P-Blood Pressure: treated: No B- Body Mass Index > 35 kg/m2: No A- Age over 50: Yes N- Neck Large Circumference: No G- Gender Male: No BRAYDEN Total Score: 0 BRAYDEN Risk Assessment: Low Risk, <3 Yes Risk Assessment Category Category 1A: Patient has history of documented sleep apnea, and HAS NOT received any narcotic, sedative or anesthesia administration during this stay. Category 1B: Patient has history of documented sleep apnea, and HAS received any narcotic , sedative or anesthesia administration during this stay Category 2: Patient has SUSPECTED Obstructive Sleep Apnea, and HAS received any narcotic , sedative or anesthesia administration during this stay. Category 3: Patient has SUSPECTED Obstructive Sleep Apnea and HAS NOT received narcotic, sedative or anesthesia administration during this stay. Category 4: Outpatient in Procedural Areas with known sleep apnea or who screen positive for High Risk via the STOP/BANG questionnaire. Exam Exam Vital Signs Vital Signs Date Time Temp Pulse Resp B/P Pulse Ox O2 Delivery O2 Flow Rate FiO2 11/01/16 14:29 98 30 11/01/16 12:13 76 87/50 99 40 11/01/16 11:14 36.9 113 20 115/3 98 11/01/16 11:14 CPAP/BIPAP 11/01/16 07:52 120 11/01/16 07:52 36.8 120 17 138/4 92 11/01/16 07:52 CPAP/BIPAP General Appearance: Other (intubated, responds to voice and nods) HEENT/AIRWAY: Other (ETT in situ) Lungs: Diminished, Coarse Heart: Exam Unremarkable, Regular Rate/Rhythm, No Murmurs/Rubs/Gallops Meds/Labs/Diagnostics Admission Meds Current Medications Propofol (Diprivan Inj) 1,000,000 mcg STK-MED ONCE .ROUTE Last administered on 11/01/16 13:07; Start 11/01/16 at 11:25; Stop 11/01/16 at 11:27; Status DC Lorazepam (Ativan Inj) 2 mg ONCE ONCE IVPUSH Last administered on 11/01/16 12 :56; Start 11/01/16 at 12:40; Stop 11/01/16 at 12:44; Status DC Bedside Blood Glucose: 133 Labs Test 10/29/16 21:45 10/30/16 02:45 10/30/16 04:50 10/30/16 05:30 Pro-B-Type Natriuretic Peptide 626.1pg/mL (0-301) Phosphorus Level 3.1mg/dL (2.5-4.9) Magnesium Level 1.9mg/dL (1.6-2.6) Lactic Acid Level 1.5mmol/L (0.4-2.0) Urine Color Yellow (YELLOW) Urine Appearance Cloudy (CLEAR,HAZY) Urine pH 6.0 (5.0-8.0) Urine Specific [place] 1.030 (1.003-1.035) Urine Protein 30mg/dL (NEG,TRACE) Urine Glucose (UA) 250mg/dL (NEGATIVE) Urine Ketones Tracemg/dL (NEGATIVE) Urine Occult Blood Negative (NEGATIVE) Urine Nitrite Positive (NEGATIVE) Urine Bilirubin Negative (NEGATIVE) Urine Urobilinogen Normalmg/dL (NORMAL) Urine Leukocyte Esterase Negative (NEGATIVE) Urine RBC 0-2/hpf (0-2) Urine WBC 11-50/hpf (0-5) Urine Epithelial Cells Moderate/hpf (NONE-MOD) Urine Crystals None seen (NONE SEEN) Urine Bacteria Many/hpf (NONE-FEW) Urine Hyaline Casts 5/20/lpf (NONE) Urine Granular Casts 5-20 (NONE SEEN) Urine Waxy Casts None seen (NONE SEEN) Urine Red Blood Cell Casts None seen (NONE SEEN) Urine White Blood Cell Casts None seen (NONE SEEN) Urine Mucus Present (None Seen) Urine Trichomonas None seen (NONE SEEN) Urine Yeast None (NONE SEEN) Urinalysis Comment None Urine Culture Reflexed Indicated Urine Legionella pneumophilia Ag Negative (Negative) Test 10/30/16 05:40 10/30/16 20:20 11/01/16 02:27 11/01/16 07:30 Hold Seth Top Tube Received (Received) Troponin T < 0.010ug/L (0.0-0.011) Triglycerides Level 97mg/dL (0-149) White Blood Count 20.9th/mm3 (3.8-10.1) Red Blood Count 4.02mil/mm3 (3.90-5.20) Hemoglobin 12.9g/dL (12.0-15.6) Hematocrit 41.8% (35.0-46.0) Mean Corpuscular Volume 104.0fL (81-100) Mean Corpuscular Hemoglobin 32.1pg (27.0-35.0) Mean Corpuscular Hemoglobin Concent 30.9% (32.0-37.0) Red Cell Distribution Width 14.1% (12.3-15.4) Platelet Count 376bil/L (150-400) Neutrophils (%) (Auto) 90.8% (40-74) Lymphocytes (%) (Auto) 3.4% (14-46) Monocytes (%) (Auto) 4.5% (4-12) Eosinophils (%) (Auto) 0% (0-5) Basophils (%) (Auto) 0.3% (0-3) Total Bilirubin 0.2mg/dL (0.0-1.2) Aspartate Amino Transf (AST/SGOT) 61U/L (0-50) Alanine Aminotransferase (ALT/SGPT) 40U/L (0-32) Alkaline Phosphatase 59U/L (25-165) Total Protein 5.7g/dL (6.4-8.4) Albumin 3.8g/dL (3.4-5.0) Test 11/01/16 12:00 11/01/16 13:21 Prothrombin Time 12.3sec (8.1-12.5) Prothromb Time International Ratio 1.15ratio Thyroid Stimulating Hormone (TSH) 0.618uIU/mL (0.450-4.500) Sodium Level 145mEq/L (134-144) Potassium Level 4.7mEq/L (3.5-5.2) Chloride Level 108mEq/L (97-108) Carbon Dioxide Level 25mmol/L (18-29) Blood Urea Nitrogen 22mg/dL (8-27) Creatinine 0.39mg/dL (0.57-1.00) Estimat Glomerular Filtration Rate 236mL/min (>59) Glucose Level 96mg/dL (60-99) Calcium Level 7.7mg/dL (8.5-10.1) Procalcitonin 0.26ng/mL (0.00-0.08) Plan Impression Patient chart reviewed, patient interviewed and anesthestic plan with risks, benefits, and alternatives discussed, and informed consent obtained. ASA Physical Status: ASA4 Life Threatening Anesthetic Plan: GA (Will return to CCU with controlled ventilation and need for ongoing sedation.) Bene/Risks/Altern/Consents: Yes (Consent is via as patient is intubated and sedated at this time. ) HP Complete Prior to Induction: Yes Syd Kebede MD Nov 01, 2016 15:50
[2016-11-01] MEDS ORDERED: Bupivacaine 0.5%/EPI 50 mL Inj INFILTRATE ONE (17:57)
--- NOTE | 2016-11-01 18:08 | NUR ---
Pt to OR at approx 1615hrs
--- NOTE | 2016-11-01 18:20 | PCM.ANEP1 ---
Post Anesthesia Phase 1 PACU Phase 1 Assessment Date of Service: Nov 01, 2016 Vital Signs Vital Signs Date Time Temp Pulse Resp B/P Pulse Ox O2 Delivery O2 Flow Rate FiO2 11/01/16 16:17 94 125/70 97 30 11/01/16 14:29 98 30 11/01/16 12:13 76 87/50 99 40 11/01/16 11:14 36.9 113 20 115/3 98 11/01/16 11:14 CPAP/BIPAP Anesthetic Administered: GA Level of Alertness: Drowsy, not talking FLORES's with Equal Strength: No Pain: No Nausea or Vomiting: No Cardiovascular Function and Hy: Yes Airway Device: Endotrachial Tube Oxygen Delivery: Mechanical Ventilator Lungs: Diminished, Coarse Complications: No Follow up Care: Yes (per CCU team) Comments Transfer of care to CCU RN and RT. BP: 132/71 SpO2: 100% HR: 88 T: 36.8 Syd Kebede MD Nov 01, 2016 18:20
--- NOTE | 2016-11-01 18:39 | NUR ---
Pt returned to CCU at 1815hrs Pt returned to CCU post trach and PEG, VS stable, sats 100%. Propofol and NS restarted via PICC. Vent settings as before OR. Family up dated by MD and in to visit with pt.
--- NOTE | 2016-11-01 18:39 | DRSVH ---
PROCEDURE: X-RAY CHEST ONE VIEW, PORTABLE ([id number]) INDICATIONS: check trach placement TECHNIQUE: One view of the chest was acquired. COMPARISON: [facility], CR, XR CHEST 1VW (PORTABLE), 11/01/2016, 11:50. FINDINGS: Surgical changes and devices: Tracheostomy is in place in interval since prior examination. A PICC line projects to the distal SVC via a right-sided approach. Lungs and pleura: No pleural effusions or pneumothorax. Lungs are clear. Are hyperinflated and ther e is flattening hemidiaphragms suggestive of COPD. Mediastinum: Mediastinal contours appear normal. Heart size is normal. Bones and chest wall: No suspicious bony lesions. Overlying soft tissues appear unremarkable. Prese nce of percutaneous gastrostomy tube noted. IMPRESSION: Status post placement tracheostomy tube. No acute cardiopulmonary disease process. Dictated by: Rosita Elaine MD, PhD on 11/01/2016 at 18:37 Approved by: Rosita Elaine MD, PhD on 11/01/2016 at 18:38
--- NOTE | 2016-11-01 18:45 | NUR ---
P: Hemodynamics, Resp, Nutrition, Neuro I,E: Pt was tachycardic this am in the 110[address] ST. NS bous 500cc was given per MD and HR dropped to the 80's. UOP improved a little. Pt received another 25cc bolus after intubation for hypotension and BP improved. UOP was 700cc for this shift. BP currently 129/66, and she is in SR. Pt was on Bi Pap this am, and was intubated at 1145hrs. She went to OR for trach placement today and tolerated this well. Sats currently 100% on 30% FIO2. Suctioning small amounts of clear/white secretions rarely. Pt is NPO at this time, PEG tube to gravity overnight tonight. Pt is sedated at this time. She was awake earlier today nodding and shaking her head approp to simple questions.
[2016-11-01] MEDS: PARoxetine 20 mg Tablet PO SCH (20:17)
--- NOTE | 2016-11-01 20:25 | OP ---
[address] [address] OPERATIVE REPORT PATIENT: WILLIE FINLEY : 1950 MR#: [id number] ADMIT: 10/29/2016 JOB ID: [id number] DATE OF SURGERY: 11/01/2016 SURGEON: Vasyl Joy MD PAPER FOLDER: Nando Vincent PA-C and Josse Weiss DO (Resident I) ANESTHESIA: General. PREOPERATIVE DIAGNOSIS(ES): Respiratory failure. POSTOPERATIVE DIAGNOSIS(ES): Respiratory failure. PROCEDURE: Percutaneous endoscopic gastrostomy tube placement and tracheostomy. INDICATION FOR PROCEDURE: The patient is a 66-year-old female, who has COPD with respiratory failure, who requires a trach and PEG tube placement. OPERATIVE FINDING: Successful placement of a 20-[place] PEG tube and also successful placement of a #8 Shiley tracheostomy tube. PROCEDURE COURSE: The patient was brought to the operating table and was already intubated. The patient was given general anesthesia. The patient has already been receiving IV antibiotics. She was provided with SCDs. A time-out was performed. We started with the PEG tube placement. Upper endoscopy was performed and the scope was then placed through the oropharynx and introduced into the esophagus, into the stomach. Upon visualization of the stomach, there was quite a bit of coffee grounds. There were no obvious antral lesions. The scope was able to be passed through the pylorus, into the duodenum which appeared to be normal. The scope was then retracted back into the stomach, and retroflexion did not show any fundic lesions. The gastric contents were suctioned off. At the point of maximal indentation, the abdominal wall was marked. It was prepped and draped and local anesthetic was injected. A small incision was made and an introducer needle was then percutaneously placed through the abdominal wall straight into the gastric lumen. A guidewire was introduced into the gastric lumen which was ensnared and brought out of the patient's oral cavity. The guidewire was connected to a PEG tube and then it was retrogradely pulled back into the gastric lumen using the guidewire. The endoscope was then reintroduced into the stomach, and it demonstrated good position of the PEG tube. The PEG tube was then cut and fitted with all the devices. A sterile dressing was placed over the wound. Next, we turned our attention to the tracheostomy. Another time-out was performed. The patient's neck was exposed and prepped and draped in the usual sterile fashion. Next, along the proposed incision above the sternal notch, local anesthetic was injected and the skin was incised using the scalpel. Careful dissection into the subcu was carried out and the platysma was divided. A sizable vein was divided between ties. Dissection was carried out successfully straight down onto the anterior surface of the trachea. All the surrounding tissue was freed and there was no obvious bleeding. Next, a U shaped a tracheotomy was created and a flap was raised using the tracheal hook and a #8 Shiley tracheostomy tube was then placed successfully into the trachea after withdrawal of the ET tube. We had good return of CO2 and patient oxygenated well. The tracheal tape was then placed onto the tracheostomy to hold it in place around the patient's neck. The neck incision was closed on both ends using #2 Prolene sutures. Sterile dressing was then placed directly on the wound. By the end of procedure, needle counts and sponge counts were correct. The patient was then taken back to the Intensive Care Unit in stable satisfactory condition.
[2016-11-02] VITALS (16 sets, daily range): BP systolic 119–194; BP diastolic 60–98; PULSE 99–125; RESP 16–40; O2SAT 89–97
[2016-11-02] MEDS: Albuterol-Ipratropium 3 mL Inhalation Solution NEB SCH ×6 (00:11→20:54)
[2016-11-02] MEDS: MethylprednisoLONE Sodium Succinate 40 mg/mL Inj IVPUSH SCH ×4 (02:38→15:00)
[2016-11-02] MEDS: 0.9% Sodium Chloride 1,000 ML IV SCH ×2 (02:38→17:57)
[2016-11-02 03:35] LABS: BASOPHILS % (AUTO) 0.1 % (0-3); EOSINOPHILS % (AUTO) 0.1 % (0-5); MONOCYTES % (AUTO) 5.3 % (4-12); Mean Corpuscular Hemoglobin 32.2 pg (27.0-35.0); Mean Corpuscular Volume 102.2 fL (81-100); Platelet Count 290 bil/L (150-400)
--- NOTE | 2016-11-02 04:38 | ABG ---
DateTimeAnalyzed 04:33:00 -_ pH ____7.421 - 7.350 7.450 pCO2 ___39.0__ -mmHg 35.0 45.0 pO2 ___71.5__ -mmHg 69.0 116 HCO3- ___24.9__ -mmol/L 22.0 26.0 ABE ____1.0__ -mmol/L -2.0 2.0 tHb ___11.3__ -g/dL O2Hb ___94.1__ -% COHb ____0.9__ -% MetHb ____1.1__ -% sO2 ___96.0__ -% FIO2 ___30.0__ -% PEEP ____5.0__ -cmH2O Set_RR ___16.0__ -b/min Vt __370.0__ -L Drawn By MK - Date/Time Notified____ 04:37:00 -_ Spontaneous_RR ___16.0__ -b/min Oxygen Device 1 VENTILATOR - B 754 -mmHg tO2 ___15.0__ -Vol% Ba test _Positive -
[2016-11-02] MEDS: fentaNYL-PF 50 mCg/mL 2 mL Inj IVPUSH PRN ×2 (05:30→21:19)
--- NOTE | 2016-11-02 06:02 | NUR ---
Respiratory/agitation/GI P: trach to vent w/ fio2 0.30, sp02 >96%, SR-SR with PAC's, BP stable, intermittent RASS +1, pt reaching for trach tube, feldt score 5, new peg tube to gravity. I: given fentanyl IV prn, increased propofol gtt sedation E: Resting rass -2, feldt score 0 post med. peg tube drained with 50cc green gastric fluid.
[2016-11-02] MEDS: Heparin 5,000 Unit/mL Inj SUBQ SCH ×2 (08:30→17:59)
--- NOTE | 2016-11-02 08:52 | DRSVH ---
PROCEDURE: X-RAY CHEST ONE VIEW, PORTABLE ([id number]) INDICATIONS: intubated. ETtube positioning TECHNIQUE: One view of the chest was acquired. COMPARISON: [facility], CR, XR CHEST 1VW (PORTABLE), 11/01/2016, 18:14[facility]ST 1VW (PORTABLE), 11/01/2016, 11:50. FINDINGS: Surgical changes and devices: Tracheostomy tube tip is located approximately 2.5 cm below the inferio r margin of the medial clavicular heads. PICC line from right sided approach appears in normal posit ion in the distal SVC. Lungs and pleura: No pleural effusions or pneumothorax. Lungs are abnormal with hyperexpansion and chronic interstitial prominence consistent with severe COPD. Mediastinum: Mediastinal contours appear normal. Heart size is normal. Bones and chest wall: No suspicious bony lesions. Overlying soft tissues appear unremarkable. IMPRESSION: Tracheostomy tube positioning normal, as is the PICC line. Severe COPD stable over time. Dictated by: Tyson Beckham M.D. on 11/02/2016 at 8:49 Approved by: Tyson Beckham M.D. on 11/02/2016 at 8:50
--- NOTE | 2016-11-02 09:14 | NUR ---
15min sedation reduction Per Vent protocol, sedation reduction @ 0820:Propofol reduced to 5mcg/kg/min from 20mcg. Within 8 min, pt restless, resps mid 20s; within 10 min pt opening eyes, nodding approp to family and moving UE purposefully. Within 10-14 min Tachypneic to 38-40, MELISSA to 194/95, sats down to 89%. Pt highly anxious. Propofol to 15mcg/kg/min; aware.
[2016-11-02] MEDS: cefTRIAXone Inj 2,000 MG in Dextrose 5% Minibag Plus 50 ML IV SCH (09:27)
--- NOTE | 2016-11-02 10:36 | NUR ---
NUTRITION FOLLOW-UP: ASSESS: 66 YO female admitted with acute on chronic respiratory distress secondary to advancing COPD exacerbation in the setting of ongoing tobacco use, requiring intubation. She was able to extubated 10/31 to BiPAP; however, although her diet was advanced to stimulation texture, she was unable to tolerate being off BiPAP at all. Per family meeting yesterday, patient and family wishes to proceed with re-intubation, tracheostomy and PEG tube placement, , which occurred yesterday, with likely transfer in the near future to [place]. Enteral feeding orders rewritten and placed in chart for provider authorization, when appropriate. Code status remains full. PMHX: Chronic respiratory failure, COPD, Anxiety LABS: Reviewed. Na 147, Cr 0.40, Ca 7.7, ALT 44, Alb 2.9. MEDS:Reviewed. Solu-medrol, fentanyl. Propofol rate currently 2.8 ml/hr, providing 74 lipid kcal; per nursing note, rate may likely increase today to mitigate agitation. GI: No BM documented since admit x 4 D. SKIN: Bertram 10 today. WT: 42.9 kg, BMI 16.0 kg/m2, UBW 43kg, IBW: 52.3kg NUTRITION SUPPORT: (OFF) Enteral feeding, Pulmocare at 10ml/hr. DIET: NPO EST. NEEDS: wt gain, vent Kcals: 840-955kcal/day (22-25kcal/kg) Pro: 45-60g/day (1.2-1.5g/kg) Fluids: ~955ml/day (25ml/kg) NUTRITION DIAGNOSIS: 1) Inadequate oral intake related to decreased ability to consume sufficient energy as evidenced by current NPO status - PERSISTS. 2) Severe pro/kcal malnutrition related to chronic respiratory failure as evidence by pt with BMI of 16.0 kg, with visible muscle and fat loss - PERSISTS. NUTRITION INTERVENTION: 1) Recommend restart Pulmocare enteral formula at 10ml/hr and hold x 6 hrs to monitor tolerance. Will monitor labs closely for signs of re-feeding. If tolerated, recommend advance by 10ml q 12hr until reach goal rate of 28 ml/hr to provide 924 kcal and 38.5 g pro (100% kcal and 85% pro needs). 2) In addition, recommend adding 1 packet ProSource per day to better meet protein needs. 3) Unsigned enteral feeding orders in chart for provider authorization. MONITOR / EVAL: NPO status, orders to restart nutrition support, labs, wt, GI, POC, nutrition status. Will continue to monitor per high nutrition risk guidelines. Addendum: 11/04/16 at [address] TF turned back on, now at goal of 28 ml/hr. [facility].
[2016-11-02] MEDS ORDERED: Haloperidol 5 mg/mL Inj ONE (11:01)
[2016-11-02] MEDS: Propofol Inj 1,000,000 MCG in IV Premix 1 EACH IV SCH (11:19)
--- NOTE | 2016-11-02 12:16 | NUR ---
Social Work: Continued Discharge Planning D: Pt discussed in am rounds. Pt with Trach and PEG placement. MD has discussed [facility] with the family and they are agreeable to this plan. anticipates pt will likely be stable for this transfer on Friday. RECEIPT AND REPORT CLERK met with the family at bedside to confirm this plan and inquire they had a preference of [facility]. They live in [place] and would prefer the [facility] if available. t/c to [facility] to inquire if she had received referral yesterday. She did not but states they have beds available and can review the pt's clinicals today. RECEIPT AND REPORT CLERK faxed clinicals to [phone]. She will contact RECEIPT AND REPORT CLERK with admission status. A: Pt who will require [facility] for [facility] vent management. P: Anticipate pt to discharge to [facility] pending acceptance and medical stability for transport. RECEIPT AND REPORT CLERK to continue to follow and update team. FARZANEH Erickson
[2016-11-02] MEDS ORDERED: Succinylcholine Chloride 20 mg/mL 5 mL Inj ONE (12:21)
--- NOTE | 2016-11-02 13:37 | PROG NOTE ---
[address] [address] PROGRESS NOTE PATIENT: WILLIE FINLEY : 1950 MR#: [id number] ADMIT: 10/29/2016 JOB ID: [id number] DATE: 11/02/2016 SUBJECTIVE: Evaluation. The patient is currently on vent, status post trach and PEG on November 01, 2016. Appears to be stable. She is currently receiving propofol for sedation. OBJECTIVE: Vital signs include blood pressure 151/71, pulse is 114, and temperature 36.8. Pulse oximetry is 95 on 30% FIO2, and AC setting. Lungs are clear to auscultation. Cardiovascular: Rate and rhythm regular. Tachycardia positive. Abdomen is soft. No hepatosplenomegaly. Bowel sounds positive. Extremities: Edema of feet negative. Neurologic exam: No focal deficit appreciated. HEENT: Head is normocephalic, atraumatic. Pupils are equal, reacting equally to light. Neck is supple. No JVD appreciated. No cervical lymphadenopathy. Skin exam within normal limits. Lympathic exam: No peripheral lymphadenopathy appreciated. LABORATORY DATA: Included white count of 9.5, hemoglobin 11.5, hematocrit 36.5, platelets are 290. Sodium 147, potassium 4.6, chloride 108, bicarb 20, BUN 18, creatinine 0.4, glucose 87, and calcium 7.7. Arterial blood gas analysis done this morning: PH of 7.42, pCO2 39, pO2 71, bicarb 24, saturation is 96% on 30% FIO2 and AC setting. IMAGING: Chest x-ray: Tracheostomy tube appeared to be in place without any acute otherwise infiltrative process. ASSESSMENT: 1. Acute on chronic hypercapnic and hypoxemic respiratory failure, status post failed extubation x1. The patient was intubated and did receive tracheostomy tube placement for ongoing mechanical ventilatory support. 2. Acute exacerbation of chronic obstructive pulmonary disease, likely secondary to coronavirus infection. Appeared to be doing better. 3. Klebsiella urinary tract infection. The patient is currently on appropriate antibiotics. 4. Status post tracheostomy and percutaneous gastrostomy tube placement by Surgery. 5. Malnutrition. 6. Continued tobacco abuse. PLAN: 1. Will stop sedation and will try SBTs at this time. 2. Will give patient IV fluids. 3. Will start nutritional tube feeding once okay from surgical standpoint to use the PEG tube. 4. Continue steroids. 5. Continue antibiotics. 6. Will continue otherwise supportive care. 7. The patient will need [facility] for continued care and weaning process and rehabilitation. Will follow along with you. CRITICAL CARE TIME: 35 minutes provided.
--- NOTE | 2016-11-02 14:01 | NUR ---
Evaluation completed. Please go to "Notes" then click on "Assessments and Notes" (bottom left corner of screen). Then select appropriate discipline tab on top of screen.
--- NOTE | 2016-11-02 16:18 | PROG NOTE ---
[address] [address] PROGRESS NOTE PATIENT: WILLIE FINLEY : 1950 MR#: [id number] ADMIT: 10/29/2016 JOB ID: [id number] DATE: 11/02/2016 I am seeing the patient in followup after her trach/PEG performed yesterday by Dr. Vasyl Joy. Link. The gastrostomy tube looks typical. There have only been 50 cc out it for the first 8 hours of today. IMPRESSION: No obvious complication from placement of her percutaneous endoscopic gastrostomy and also from her tracheostomy. PLAN: Will start tube feedings through her PEG per protocol today. I will not actively follow. Please re-consult us if there are any issues.
--- NOTE | 2016-11-02 18:01 | PCM.PNMED ---
Subjective Date of Service Nov 02, 2016 Subjective No overnight events. ROS limited 2ndry to non-verbal at this time Exam Vital Signs Vital Sign - Last Date Time Temp Pulse Resp B/P Pulse Ox O2 Delivery O2 Flow Rate FiO2 11/02/16 16:00 115 149/79 97 30 11/02/16 11:51 36.8 19 Mechanical Ventilator 10/31/16 14:55 3.00 Intake and Output 11/01/16 11/01/16 11/02/16 Cumulative From/Thru 15:00 23:00 07:00 10/29/16 21:45 - 11/02/16 05:53 Intake Total 2622 ml 974 ml 9171 ml Output Total 700 ml 450 ml 2150 ml Balance 1922 ml 524 ml 7021 ml Intake Oral 0 ml 100 ml IV Total 2622 ml 974 ml 8635 ml Tube Feeding 230 ml Tube Irrigant 206 ml Output Urine Total 700 ml 400 ml 2100 ml Gastric Drainage Total 0 ml 50 ml 50 ml # Voids 2 # Bowel Movements 0 0 Exam General: Thin; No acute distress HEENT: Atraumatic, BiPAP mask in place Cardiac: Regular rate and rhythm with no murmurs, rubs, or gallops appreciated Respiratory: Decreased breath sounds bilaterally; No wheezes Abdomen: Thin, Soft, Nontender. PEG tube in place Skin: Warm and dry Extremities: No edema appreciated of the lower bilateral extremities Neuro: Non-focal IVs and Medications Medications Reviewed: Medications were reviewed in detail Lab and Diagnostics Result Diagram: 11/02/1631611/02/16316 Assessment & Plan 66-year-old female with chronic respiratory failure secondary to advancing COPD in the setting of ongoing tobacco use presenting with shortness of breath despite home oxygen therapy and outpatient steroid use and admitted for evaluation and treatment of acute on chronic respiratory failure secondary to acute exacerbation of COPD. # Acute on chronic hypercapnic and hypoxemic respiratory failure, present on admission. Ongoing. - Secondary to COPD exacerbation - Extubation on 10/31. - Post percutaneous endoscopic gastrostomy tube placement and tracheostomy on - Appreciate Pulmonary/Critical Care consult. Will followup with recommendations : - stop sedation and try SBTs at this time. - continue steroids. - continue antibiotics. - will need half-way ventilatory facility for continued care and weaning process and rehabilitation. # Acute exacerbation of COPD, present on admission. Active - Viral PCR positive for Coronavirus. - Droplet and contact precautions - Further management as noted above # Acute urinary tract infection, present on admission. - Urine culture positive for Klebsiella pneumoniae - Continue ceftriaxone (started 10/31) # Nicotine dependence, chronic. Ongoing - Patient reported 50 year history of 1-1.5 packs per day - Nicotine 21 mg patch daily # Severe protein calorie malnutrition, BMI 15, chronic. Ongoing - Admit: BMI 15 - Dietary/nutrition following. Recommendations per dietary/nutrition appreciated - Start Tube feeding on 11/02/16 # Anxiety, chronic. 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
[2016-11-02] MEDS: PARoxetine 20 mg Tablet PO SCH (20:59)
[2016-11-03] VITALS (12 sets, daily range): BP systolic 135–153; BP diastolic 70–88; PULSE 99–123; RESP 16–25; O2SAT 93–100
[2016-11-03] MEDS: fentaNYL-PF 50 mCg/mL 2 mL Inj IVPUSH PRN (00:52)
[2016-11-03] MEDS: Albuterol-Ipratropium 3 mL Inhalation Solution NEB SCH ×6 (00:52→20:33)
[2016-11-03] MEDS: Heparin 5,000 Unit/mL Inj SUBQ SCH ×4 (00:52→15:50)
[2016-11-03] MEDS: MethylprednisoLONE Sodium Succinate 40 mg/mL Inj IVPUSH SCH ×4 (03:35→20:45)
[2016-11-03] MEDS ORDERED: Potassium Chloride 20 mEq/15 mL Oral Soln(K 3 - 3.7 & Creat < 2) TUBE ONE (06:20)
[2016-11-03] MEDS ORDERED: Dextrose 5% 1,000 ML IV SCH (07:25)
[2016-11-03] MEDS: Dextrose 5% 1,000 ML IV SCH ×3 (08:10→17:45)
[2016-11-03] MEDS: cefTRIAXone Inj 2,000 MG in Dextrose 5% Minibag Plus 50 ML IV SCH (09:33)
--- NOTE | 2016-11-03 09:34 | PROG NOTE ---
[address] [address] PROGRESS NOTE PATIENT: ANDIE FINLEY : 1950 MR#: [id number] ADMIT: 10/29/2016 JOB ID: [id number] DATE: 11/03/2016 I spoke with Ansley Boudreaux RN, Andie's nurse today. She is tolerating her tube feedings and they are being advanced per protocol. Surgery will sign off for now. Please contact us if we could be of further assistance.
[2016-11-03] MEDS: Propofol Inj 1,000,000 MCG in IV Premix 1 EACH IV SCH (09:53)
--- NOTE | 2016-11-03 09:55 | PROG NOTE ---
[address] [address] PROGRESS NOTE PATIENT: WILLIE FINLEY : 1950 MR#: [id number] ADMIT: 10/29/2016 JOB ID: [id number] DATE: 11/03/2016 SUBJECTIVE: Patient remained on the vent awake, alert, appropriate. Appears to be comfortable. Communicating that she had a good night sleep and feeling much better. OBJECTIVE: Blood pressure is 140/70, pulse 110, respiratory rate is 21, pulse oximetry 95% on 30% FiO2. In AC setting temperature is 36.9. Lungs are clear to auscultation. Cardiovascular exam rate and rhythm regular. Abdomen is soft, no hepatosplenomegaly. Bowel sounds positive. Extremities edema, feet negative. Neurologic exam no focal deficit appreciated. HEENT exam within normal limits. The tracheostomy tube is in the neck and the skin exam within normal limits. Lymphatic exam no peripheral lymphadenopathy appreciated. ANCILLARY DATA: Includes chemistry drawn this morning: Sodium 150, potassium 3.5, chloride 110, bicarb 26, BUN 13, creatinine 0.36. Glucose is 135 and calcium is 8.6. ASSESSMENT: 1. Acute on chronic hypercapnic and hypoxemic respiratory failure status post failed extubation x1. The patient is now status post tracheostomy day 2 seems to be doing well on ventilatory support. 2. Acute exacerbation of chronic obstructive pulmonary disease secondary to coronavirus infection appeared to have significantly improved. 3. Klebsiella urinary tract infection and currently is on antibiotics. 4. Status post percutaneous endoscopic gastrostomy tube placement, seems to be doing well. 5. Malnutrition. 6. Hypernatremia. 7. Continued tobacco abuse. PLAN: 1. At this time will start spontaneous breathing trials as tolerated. 2. Will continue steroids. 3. Will continue bronchodilators. 4. Antibiotics for UTI. 5. Routine tracheostomy and PEG tube care. 6. Will start patient on D5W 100 mL/h. 7. Continue nutritional support as initiated. 8. Continue DVT/GI prophylaxis. 9. Will continue aggressive physical therapy as tolerated. 10. Patient is awaiting to be placed for placement and the alk that facility. 11. Will follow along with you. Thank you for involving me in the care of the patient. Thirty-five minutes of critical care time provided.
--- NOTE | 2016-11-03 13:56 | PCM.PNMED ---
Subjective Date of Service Nov 03, 2016 Subjective Seems to deny any new issues/complaints Exam Vital Signs Vital Sign - Last Date Time Temp Pulse Resp B/P Pulse Ox O2 Delivery O2 Flow Rate FiO2 11/03/16 13:42 106 135/70 100 30 11/03/16 12:25 Tracheostomy Ventilator 11/03/16 12:25 37.0 21 10/31/16 14:55 3.00 Intake and Output 11/02/16 11/02/16 11/03/16 Cumulative From/Thru 15:00 23:00 07:00 10/29/16 21:45 - 11/03/16 06:04 Intake Total 1043 ml 1454 ml 66703 ml Output Total 750 ml 700 ml 3600 ml Balance 293 ml 754 ml 8068 ml Intake Oral 30 ml 130 ml IV Total 1013 ml 1108 ml 07709 ml Tube Feeding 206 ml 436 ml Tube Irrigant 140 ml 346 ml Output Urine Total 700 ml 700 ml 3500 ml Gastric Drainage Total 50 ml 100 ml # Voids 2 # Bowel Movements 0 0 Exam Seems more alert than yesterday. Opens eyes to name. General: No Acute Distress Head: Normal Eyes: Scleral Anicteric Nose: Mucous Membr Moist/Caban Mouth: Mucous Membr Moist/Caban Neck: Other (Trach in place) Chest & Lungs: Chest Wall Normal, Clear to auscultation & percussion Cardiovascular: Regular Rate/Rhythm Abdomen: Non-tender, Non-distended, Normoactive bowel tones, Soft, Other (PEG tube in place) Extremities: No cyanosis/clubbing/edma bilat Neurological: Grossly Neurologically Intact IVs and Medications Medications Reviewed: Medications were reviewed in detail Lab and Diagnostics Result Diagram: 11/02/167 11/03/16 0340 Assessment & Plan 66-year-old female with chronic respiratory failure secondary to advancing COPD in the setting of ongoing tobacco use presenting with shortness of breath despite home oxygen therapy and outpatient steroid use and admitted for evaluation and treatment of acute on chronic respiratory failure secondary to acute exacerbation of COPD. # Acute on chronic hypercapnic and hypoxemic respiratory failure, present on admission. Ongoing. - Secondary to COPD exacerbation - Extubation on 10/31. - Post percutaneous endoscopic gastrostomy tube placement and tracheostomy on - Appreciate Pulmonary/Critical Care consult. Will followup with recommendations : - spontaneous breathing trials as tolerated. - continue steroids. - continue antibiotics. 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 # Acute exacerbation of COPD, present on admission. Active - Viral PCR positive for Coronavirus. - Droplet and contact precautions - Further management as noted above # Acute urinary tract infection, present on admission. - Urine culture positive for Klebsiella pneumoniae - Continue ceftriaxone (started 10/31) # Acute hypernatremia. Not present on admission. Ongoing. - Change IV fluid to D5W and followup # Nicotine dependence, chronic. Ongoing - Patient reported 50 year history of 1-1.5 packs per day - Nicotine 21 mg patch daily # Severe protein calorie malnutrition, BMI 15, chronic. Ongoing - Admit: BMI 15 - Dietary/nutrition following. Recommendations per dietary/nutrition appreciated - Appreciate surgery consult and input. - Continue with tube feeding started on 11/02/16 # Anxiety, chronic. 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
[2016-11-03] MEDS ORDERED: 0.9% Sodium Chloride 250 ML ONE (16:02)
--- NOTE | 2016-11-03 19:13 | NUR ---
[id number]/Nutrition/Progressive mobility Tolerated SBT well today x5h; returned to Prvc 16/peep 5/Tv 370/Fio2 30% for rest. Pt denies pain; declined to have pain med or Lorazepam today, receiving only tylenol x1. Alert, interactive, calm and much less anxious today. Responds well to freq communications. PEG enteral feeding @ goal of 28/hr. No stool, though both miralax & senna administered. Up sitting on edge of bed x2 today; also up to Gooden chair for 2hr. Pt able to now FLORES, has lift strength with assist. AROM freq. Plan: continue supporting pt w/ Trach, SBT, nutrition via PEG, strengthening activities as she awaits placement to [facility] for weaning.
[2016-11-03] MEDS: PARoxetine 20 mg Tablet PO SCH (20:45)
[2016-11-04] VITALS (11 sets, daily range): BP systolic 124–146; BP diastolic 67–80; PULSE 108–128; RESP 16–19; O2SAT 96–98
[2016-11-04] MEDS: Albuterol-Ipratropium 3 mL Inhalation Solution NEB SCH ×5 (00:07→16:15)
[2016-11-04] MEDS: Heparin 5,000 Unit/mL Inj SUBQ SCH ×3 (00:48→16:07)
[2016-11-04] MEDS: fentaNYL-PF 50 mCg/mL 2 mL Inj IVPUSH PRN (01:35)
[2016-11-04] MEDS: MethylprednisoLONE Sodium Succinate 40 mg/mL Inj IVPUSH SCH ×3 (02:53→14:27)
[2016-11-04 04:12] LABS: Magnesium 2.1 mg/dL (1.6-2.6); Phosphorus 2.5 mg/dL (2.5-4.9)
--- NOTE | 2016-11-04 06:15 | PCM.PNMED ---
Subjective Date of Service Nov 04, 2016 Subjective Pulmonology/Critical Care Follow-up Patient is a 66yof with MHx significant for tobacco abuse, severe COPD on home O2, plus profound malnutrition and anxiety admitted for COPD exacerbation 2nd to respiratory coronavirus, currently on vent s/p trach and peg on steroids and bronchodialators. Pulmonology/Critical Care team asked to evaluate and treat given the higher acuity of care. No new complaints today. Denies any pain, night sweats, feverish. Patient without fever, chills. Electrolytes Na normalized to 142 from 146. Exam Vital Signs Vital Sign - Last Date Time Temp Pulse Resp B/P Pulse Ox O2 Delivery O2 Flow Rate FiO2 11/04/16 04:30 Tracheostomy Ventilator 11/04/16 04:30 36.8 117 18 126/67 97 30 10/31/16 14:55 3.00 Intake and Output 11/03/16 11/03/16 11/04/16 Cumulative From/Thru 15:00 23:00 07:00 10/29/16 21:45 - 11/04/16 05:41 Intake Total 1349 ml 1208 ml 24739 ml Output Total 850 ml 700 ml 5150 ml Balance 499 ml 508 ml 9075 ml Intake Oral 130 ml IV Total 1045 ml 712 ml 14098 ml Tube Feeding 184 ml 357 ml 977 ml Tube Irrigant 120 ml 139 ml 605 ml Output Urine Total 850 ml 700 ml 5050 ml Gastric Drainage Total 0 ml 100 ml # Voids 2 # Bowel Movements 0 1 1 Exam General: frail. Head: Normal, Skull Deformity, Tenderness Eyes: PERRLA, Scleral Icterus (no) Mouth: Mucous Membr dry Neck: Supple, Nodes (no ), Other (no jvd), tracheostomy stoma without erythema or swelling Chest & Lungs: on vent, b/l mild wheezes throughout (Pectus carinatum) Cardiovascular: Regular Rate/Rhythm, Normal S1, Normal S2, No Murmurs/Rubs/ Gallops Abdomen: Non-tender, Non-distended, + bowel sound, No masses, LUQ PEG Genitourinary: Noble Present Extremities: No cyanosis/clubbing/edma bilat, No heel ulcers present, Right upper arm PICC line Neurological: aox3, moving all four extremities Lab and Diagnostics Result Diagram: 11/02/16 0317 11/04/16 0255 Assessment & Plan Patient is a 66yof with MHx significant for tobacco abuse, severe COPD on home O2, plus profound malnutrition and anxiety admitted for COPD exacerbation 2nd to respiratory coronavirus, currently on vent s/p trach and peg on steroids and bronchodilators. Plans are to transition her into a intermediate, subacute care facility. She has been Solu-Medrol 60mg Q6H and DuoNeb Q4H for COPD exacerbation since admission. This will need to be taper down. Unrelated, her UA positive on admission for Klebsiella. She has been on Ceftriaxone for 4 days, will d/c today. Problem List # Hypoxic hypercapnic respiratory failure s/p trache # Acute on severe COPD (improving) # Viral pneumonia (resolved) # Severe protein/calorie malnutrition s/p peg # Anxiety # UTI PLAN 1. Vent support, daily spontaneous breathing trials 2. Cont steroids with taper, cont bronchodilators 3. NS 75cc/hr, D/c D5w 50cc/hr 4. GI and DVT prophylaxis 5. Physical therapy 6. Enteric feeding via PEG 6. UTI- D/C ceftriaxone after today (11/04) for 5 days course GI Prophylaxis: H2 elvia VTE Prophylaxis: Sub-Q Heparin (Unfractionated) VTE Mechanical Devices: Intermittant Pneumatic CD Resuscitation Status: CPR: Attempt Resuscitation Limited [facility]ventions: [facility] Attending Statement The patient was seen and examined together with Dr. Moore on 11/04/2016 and I agree with the history, exam and plan as outlined in the note above. Critical Care Time Spent: 35 min Andre Moore DO Nov 04, 2016 06:15 Gibson Gaston MD November 21, 2016 14:55
--- NOTE | 2016-11-04 06:44 | NUR ---
mentation/activity: pt was more alert during shift compared to previous shift. Pt was able to make needs know and interacted with family and staff. Pt tolerates vent well. Pt had 1 large BM. Tolerating tube feedings well.
[2016-11-04] MEDS: 0.9% Sodium Chloride 1,000 ML IV SCH ×2 (07:47→16:06)
[2016-11-04] MEDS ORDERED: cefTRIAXone Inj 2,000 MG in Dextrose 5% Minibag Plus 50 ML IV SCH (08:25)
[2016-11-04] MEDS ORDERED: Famotidine Inj 20 MG in IV Premix 1 EACH IV SCH (08:30)
--- NOTE | 2016-11-04 11:00 | NUR ---
Faxed referral to [facility] and marked as Urgent, patient has been Trached and Pegged and is ready for transfer today. 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
--- NOTE | 2016-11-04 12:27 | PCM.PNMED ---
Subjective Date of Service Nov 04, 2016 Subjective Patient is 66-year-old female with chronic respiratory failure secondary to advancing COPD in the setting of ongoing tobacco use presenting with shortness of breath despite home oxygen therapy and outpatient steroid use and admitted for evaluation and treatment of acute on chronic respiratory failure likely secondary to exacerbation of COPD. Hospital day #7. No overnight events. Patient is without complaint. She denies pain, shortness of breath or discomfort. Exam Vital Signs Vital Sign - Last Date Time Temp Pulse Resp B/P Pulse Ox O2 Delivery O2 Flow Rate FiO2 11/04/16 08:30 37.2 118 19 137/78 98 Mechanical Ventilator 30 10/31/16 14:55 3.00 Intake and Output 11/03/16 11/03/16 11/04/16 Cumulative From/Thru 15:00 23:00 07:00 10/29/16 21:45 - 11/04/16 05:41 Intake Total 1349 ml 1208 ml 36967 ml Output Total 850 ml 700 ml 5150 ml Balance 499 ml 508 ml 9075 ml Intake Oral 130 ml IV Total 1045 ml 712 ml 11351 ml Tube Feeding 184 ml 357 ml 977 ml Tube Irrigant 120 ml 139 ml 605 ml Output Urine Total 850 ml 700 ml 5050 ml Gastric Drainage Total 0 ml 100 ml # Voids 2 # Bowel Movements 0 1 1 Exam General: Patient is sitting upright in chair; Thin; No acute distress; Appropriately interactive HEENT: Atraumatic; Tracheostomy; On ventilator Cardiac: Tachycardic with regular rhythm; No murmurs, rubs, or gallops appreciated Respiratory: Lungs clear bilaterally Abdomen: Thin, Soft, Nontender, PEG tube in place without erythema or drainage Skin: Warm and dry Extremities: No edema appreciated of the lower bilateral extremities; PICC right upper extremity Neuro: Grossly neurologically intact IVs and Medications Medications Reviewed: Medications were reviewed in detail Lab and Diagnostics Result Diagram: 11/02/16 0317 11/04/16 0255 Assessment & Plan Patient is 66-year-old female with chronic respiratory failure secondary to advancing COPD in the setting of ongoing tobacco use presenting with shortness of breath despite home oxygen therapy and outpatient steroid use and admitted for evaluation and treatment of acute on chronic respiratory failure secondary to acute exacerbation of COPD. Hospital day #7. 1. Acute on chronic respiratory failure, present on admission. Active - Patient on home oxygen 3 L, continuous - Secondary to COPD exacerbation - Patient extubated on 10/31. Trach placed on 11/01 - Check phosphate level - Continue with SBT - Pulmonary/Critical Care following. Recommendations per Pulm/CC appreciated 2. Acute exacerbation of COPD, present on admission. Active - Viral PCR positive for Coronavirus. Continue with droplet and contact precautions - Negative studies: Strep pneumo urine antigen, Legionella urine antigen, MRSA screen, sputum culture - Start steroid taper. Decrease Solu-Medrol to 60 mg IV q8 - DuoNeb Q4 hours 3. Urinary tract infection, present on admission. Active - Urine culture positive for Klebsiella pneumoniae - Completed 6-day course of ceftriaxone 4. Leukocytosis, acute, present on admission. Resolved - On admit: WBC 12.6 - Possible reactive to outpatient prednisone and acute respiratory distress - Follow with CBC 5. Elevated BNP, chronicity unknown. Presumed stable - On admit: pro-BNP 626 - No evidence of pulmonary edema on initial chest x-ray and physical examination without peripheral edema, JVD 6. Nicotine dependence, chronic. Ongoing - Patient reports 50 year history of 1-1.5 packs per day - Discussed smoking cessation - Nicotine 21 mg patch daily 7. Severe protein calorie malnutrition, BMI 15, chronic. Ongoing - Admit: BMI 15 - Continue tube feeds. Currently at goal - Dietary/nutrition following. Recommendations per dietary/nutrition appreciated 8. Anxiety, chronic. Presumed stable - Continue Paxil - Continue Ativan as needed - PRN: Analgesic/anti-emetic/anxiety/bowel/anti-pyretic Disposition: Anticipate discharge to LTAC for continued care - ventilator weaning and rehabilitation GI Prophylaxis: H2 elvia VTE Prophylaxis: Sub-Q Heparin (Unfractionated) VTE Mechanical Devices: Intermittant Pneumatic CD Resuscitation Status: CPR: Attempt Resuscitation Limited Interventions: Intubation w Mech Helder Dai DO Nov 04, 2016 11:54
[2016-11-04] MEDS: Propofol Inj 1,000,000 MCG in IV Premix 1 EACH IV SCH (12:40)
--- NOTE | 2016-11-04 14:13 | PCM.DIMED ---
Helder Heard DO 11/04/16 1413: Discharge Instructions Date of Service Nov 04, 2016 Dates of Hospitalization Oct 29, 2016 at 22:58 Discharge Diagnosis Discharge Diagnosis 1. Acute on chronic respiratory failure, present on admission. Active 2. Acute exacerbation of COPD, present on admission. Active 3. Urinary tract infection, present on admission. Treated 4. Leukocytosis, acute, present on admission. Resolved 5. Elevated BNP, chronicity unknown. Presumed stable 6. Nicotine dependence, chronic. Ongoing 7. Severe protein calorie malnutrition, BMI 15, chronic. Ongoing 8. Anxiety, chronic. Presumed stable Activity Other (Per Physical Therapy at [facility]) Patient Instructions You are being transferred to [facility] for further recovery and rehabilitation. Erica Whittington DO 11/10/16 1847: Discharge Instructions Attending's Statement The patient was seen and examined together with Dr. Heard on 11/04/16 and I agree with the history, exam and plan as outlined in the note above. Helder Heard DO Nov 04, 2016 14:13 Erica Whittington DO Nov 10, 2016 18:47
--- NOTE | 2016-11-04 14:16 | NUR ---
P: Respiratory Distress I: Pt on vent with trach. Pt has good cough and minimal sputum. PEG patent with Pulmocare infusing at 28cc which is goal. Turned Q 2 and pt also adjusts herself in bed. Noble patent and draining light kyle urine. 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 SCD's on. NS 75cc/hr with 250cc bolus x 2. ST. Sats stable 96-99%. Family at bedside and updated on pt's condition and plan of care. Pt is going to transport to [place] today and family is aware. E: Stable S: Alert and oriented. Able to get her needs known and can write on board. Frequent rounding.
--- NOTE | 2016-11-04 14:22 | NUR ---
JOHANNA signed FARZANEH Bolaños
[2016-11-04] MEDS ORDERED: LORA2VIA3 IVPUSH (14:34)
[2016-11-04] MEDS ORDERED: NICO1PAT6 TOPICAL (14:34)
[2016-11-04] MEDS ORDERED: METH40VI32 IVPUSH (14:34)
[2016-11-04] MEDS ORDERED: FENT50VI8 IVPUSH (14:34)
[2016-11-04] MEDS ORDERED: IPRA3AMP NEB (14:34)
[2016-11-04] MEDS ORDERED: HEPA500017 SUBQ (14:34)
[2016-11-04] MEDS ORDERED: ALBU2.5V4 NEB (14:34)
--- NOTE | 2016-11-04 14:41 | PCM.DC.MED ---
Discharge Summary Date of Service Nov 04, 2016 Dates of Hospitalization Date of Hospital Admission Oct 29, 2016 at 22:58 Date of Discharge: Nov 04, 2016 Providers: Admitting Physician: Salina Ro DO Primary Care Physician: Shimon Joshi MD Attending Physician: Salina Ro DO Diagnosis at Time of Discharge Diagnosis at Time of Discharge 1. Acute on chronic respiratory failure, present on admission. Active 2. Acute exacerbation of COPD, present on admission. Active 3. Urinary tract infection, present on admission. Treated 4. Leukocytosis, acute, present on admission. Resolved 5. Elevated BNP, chronicity unknown. Presumed stable 6. Nicotine dependence, chronic. Ongoing 7. Severe protein calorie malnutrition, BMI 15, chronic. Ongoing 8. Anxiety, chronic. Presumed stable Consultations Dr. Flavio Bustamante of Pulmonary/Critical Care Procedures XRay, CTs & MRIs Date of Service: 11/02/16 0600 PROCEDURE: X-RAY CHEST ONE VIEW, PORTABLE ([id number]) INDICATIONS: intubated. ETtube positioning TECHNIQUE: One view of the chest was acquired. COMPARISON: [facility], CR, XR CHEST 1VW (PORTABLE), 11/01/2016, 18: 14. [facility], CR, XR CHEST 1VW (PORTABLE), 11/01/2016, 11:50. FINDINGS: Surgical changes and devices: Tracheostomy tube tip is located approximately 2.5 cm below the inferior margin of the medial clavicular heads. PICC line from right sided approach appears in normal position in the distal SVC. Lungs and pleura: No pleural effusions or pneumothorax. Lungs are abnormal with hyperexpansion and chronic interstitial prominence consistent with severe COPD. Mediastinum: Mediastinal contours appear normal. Heart size is normal. Bones and chest wall: No suspicious bony lesions. Overlying soft tissues appear unremarkable. IMPRESSION: Tracheostomy tube positioning normal, as is the PICC line. Severe COPD stable over time. Dictated by: Tyson Beckham M.D. on 11/02/2016 at 8:49 Invasive Procedures Date of Service: 11/01/16 1247 PROCEDURE: X-RAY PICC LINE PLACEMENT BY NURSE ([id number]) INDICATIONS: iv access COMPARISON: None. FINDINGS: PICC was placed by the intravenous therapy team from the right side. Fluoroscopic spot film demonstrates tip projected over the lower SVC. IMPRESSION: Tip of PICC projected over the lower SVC . Dictated by: William Steiner RRA Interpreted: Rosita Eliane MD on 11/01/2016 at 16:29 Transcribed by: DANY on 11/01/2016 at 16:30 Approved by: Rosita Elaine MD, PhD on 11/01/2016 at 16:46 Brief History Per admit note by Dr. Anay Heaton dated : Ms. Finley is a pleasant 66-year-old female with a history of chronic respiratory failure secondary to advancing COPD in the setting of ongoing tobacco use, that presented to [facility] with a one-week history of progressive shortness of breath despite home oxygen therapy and outpatient steroid use. She was admitted for evaluation and treatment of acute on chronic respiratory failure likely secondary to exacerbation of COPD. Hospital day 1 Ms. Finley shares that for the recent week, she has been progressively short of breath despite home oxygen therapy, with associated increase in anxiety, nonproductive cough, decreased appetite, and inability to sleep. She states that she was recently seen by a warehouse record clerk in [place] earlier this month, and was prescribed steroid therapy and home oxygen use. She has not noticed an improvement in her symptoms. Home oxygen is reported 3 L continuous. She shares that she has been progressively worsening in terms of her respiratory status since June 2016. She denies any associated fever, chills, nausea, vomiting, abdominal pain, dysuria, headache, acute vision changes, productive cough. is present at time of interview, and he admits to a recent illness prior to this admission where he was experiencing cold-like symptoms, which self resolved without medical intervention. Ms. Finley reports that she has been on and off outpatient steroid therapy for many months now, and it was not until earlier this month that she was able to see a warehouse record clerk. She denies any other medical conditions other than her advancing COPD, ongoing tobacco use, and anxiety with depression. She continues to use tobacco on a daily basis, reporting 15-20 cigarettes per day, which is decreased from her 1.5 packs per day. She has a 50 year smoking history. In the ED, she was immediately placed on BiPAP therapy. Initial vitals reveal temperature 35.8, pulse 131, respiratory rate 27, blood pressure 114/76; initial labs revealed a white count of 12.6, with neutrophil count of 79, sodium 132, potassium 5.3, carbon dioxide 23, and proBNP 626; initial pro- calcitonin 0.07. Initial therapies included azithromycin 500 mg, Solu-Medrol 125mg IV, and nebulizer treatments. She was transferred to [facility] with BiPAP in place, in stable condition. Hospital Course Patient is 66-year-old female with chronic respiratory failure secondary to advancing COPD in the setting of ongoing tobacco use presented with shortness of breath despite home supplemental oxygen therapy and outpatient steroid use and admitted for acute on chronic respiratory failure secondary to acute exacerbation of COPD. Viral PCR was positive for Coronavirus. Patient was subsequently intubated shortly after admit and extubated to BiPAP one day later. She was reintubated due to increased work of breathing. Trach and PEG tube were placed on 11/01 after determining goals of care with family and Palliative Care. Patient currently undergoing steroid taper and breathing trials. Acute on chronic respiratory failure, present on admission. Active - Patient on home oxygen 3 L, continuous - Secondary to COPD exacerbation - Patient extubated on 10/31. She was reintubated with placement of Trach and PEG placed on 11/01 - Phosphate level pending on day of transfer Acute exacerbation of COPD, present on admission. Active - Viral PCR positive for Coronavirus. Continue with droplet and contact precautions - Negative studies: Strep pneumo urine antigen, Legionella urine antigen, MRSA screen, sputum culture - Currently on steroid taper. Current dose: Solu-Medrol 60 mg IV q8 - Patient receiving DuoNeb Q4 hours Urinary tract infection, present on admission. Treated - Urine culture positive for Klebsiella pneumoniae - Completed 6-day course of ceftriaxone Elevated BNP, chronicity unknown. Presumed stable - On admit: pro-BNP 626 - No evidence of pulmonary edema on initial chest x-ray and physical examination without peripheral edema, JVD Nicotine dependence, chronic. Ongoing - Patient reports 50 year history of 1-1.5 packs per day - Discussed smoking cessation - Patient on nicotine 21 mg patch daily Severe protein calorie malnutrition, BMI 15, chronic. Ongoing - Admit: BMI 15 - Patient was followed by Dietary/Nutrition - Patient on tube feeds, which are at goal prior to transfer Anxiety, chronic. Presumed stable - Continued patient on home dose Paxil - Ativan as needed Personally discussed case with accepting physician, Dr. Oz, at [facility] Exam Vital Signs (Last) Date Time Temp Pulse Resp B/P Pulse Ox O2 Delivery O2 Flow Rate FiO2 11/04/16 13:27 112 124/77 97 30 11/04/16 12:30 36.9 19 Mechanical Ventilator 10/31/16 14:55 3.00 Exam General: Patient is sitting upright in chair; Thin; No acute distress; Appropriately interactive HEENT: Atraumatic; Tracheostomy; On ventilator Cardiac: Tachycardic with regular rhythm; No murmurs, rubs, or gallops appreciated Respiratory: Lungs clear bilaterally Abdomen: Thin, Soft, Nontender, PEG tube in place without erythema or drainage Skin: Warm and dry Extremities: No edema appreciated of the lower bilateral extremities; PICC right upper extremity Neuro: Grossly neurologically intact Test 10/29/16 21:45 10/30/16 04:50 10/30/16 05:30 10/30/16 05:40 Pro-B-Type Natriuretic Peptide 626.1pg/mL (0-301) Lactic Acid Level 1.5mmol/L (0.4-2.0) Urine Color Yellow (YELLOW) Urine Appearance Cloudy (CLEAR,HAZY) Urine pH 6.0 (5.0-8.0) Urine Specific [place] 1.030 (1.003-1.035) Urine Protein 30mg/dL (NEG,TRACE) Urine Glucose (UA) 250mg/dL (NEGATIVE) Urine Ketones Tracemg/dL (NEGATIVE) Urine Occult Blood Negative (NEGATIVE) Urine Nitrite Positive (NEGATIVE) Urine Bilirubin Negative (NEGATIVE) Urine Urobilinogen Normalmg/dL (NORMAL) Urine Leukocyte Esterase Negative (NEGATIVE) Urine RBC 0-2/hpf (0-2) Urine WBC 11-50/hpf (0-5) Urine Epithelial Cells Moderate/hpf (NONE-MOD) Urine Crystals None seen (NONE SEEN) Urine Bacteria Many/hpf (NONE-FEW) Urine Hyaline Casts 5/20/lpf (NONE) Urine Granular Casts 5-20 (NONE SEEN) Urine Waxy Casts None seen (NONE SEEN) Urine Red Blood Cell Casts None seen (NONE SEEN) Urine White Blood Cell Casts None seen (NONE SEEN) Urine Mucus Present (None Seen) Urine Trichomonas None seen (NONE SEEN) Urine Yeast None (NONE SEEN) Urinalysis Comment None Urine Culture Reflexed Indicated Urine Legionella pneumophilia Ag Negative (Negative) Hold Seth Top Tube Received (Received) Test 10/30/16 20:20 11/01/16 02:27 11/01/16 12:00 11/02/16 03:17 Troponin T < 0.010ug/L (0.0-0.011) Triglycerides Level 97mg/dL (0-149) Prothrombin Time 12.3sec (8.1-12.5) Prothromb Time International Ratio 1.15ratio Thyroid Stimulating Hormone (TSH) 0.618uIU/mL (0.450-4.500) White Blood Count 9.6th/mm3 (3.8-10.1) Red Blood Count 3.57mil/mm3 (3.90-5.20) Hemoglobin 11.5g/dL (12.0-15.6) Hematocrit 36.5% (35.0-46.0) Mean Corpuscular Volume 102.2fL (81-100) Mean Corpuscular Hemoglobin 32.2pg (27.0-35.0) Mean Corpuscular Hemoglobin Concent 31.5% (32.0-37.0) Red Cell Distribution Width 14.1% (12.3-15.4) Platelet Count 290bil/L (150-400) Neutrophils (%) (Auto) 83.0% (40-74) Lymphocytes (%) (Auto) 10.9% (14-46) Monocytes (%) (Auto) 5.3% (4-12) Eosinophils (%) (Auto) 0.1% (0-5) Basophils (%) (Auto) 0.1% (0-3) Total Bilirubin 0.2mg/dL (0.0-1.2) Aspartate Amino Transf (AST/SGOT) 46U/L (0-50) Alanine Aminotransferase (ALT/SGPT) 44U/L (0-32) Alkaline Phosphatase 46U/L (25-165) Total Protein 4.5g/dL (6.4-8.4) Albumin 2.9g/dL (3.4-5.0) Procalcitonin 0.26ng/mL (0.00-0.08) Test 11/03/16 11:40 11/04/16 02:55 Hold Caret Top Tube Received (Received) Sodium Level 142mEq/L (134-144) Potassium Level 4.1mEq/L (3.5-5.2) Chloride Level 100mEq/L (97-108) Carbon Dioxide Level 29mmol/L (18-29) Blood Urea Nitrogen 10mg/dL (8-27) Creatinine 0.39mg/dL (0.57-1.00) Estimat Glomerular Filtration Rate 236mL/min (>59) Glucose Level 207mg/dL (60-99) Calcium Level 9.1mg/dL (8.5-10.1) Phosphorus Level 2.5mg/dL (2.5-4.9) Magnesium Level 2.1mg/dL (1.6-2.6) Microbiology Results RUN DATE: 11/01/16 [facility] LIVE PAGE 1 RUN TIME: 716 Specimen Inquiry PHYSICIAN Name: WILLIE FINLEY Age/Sex: 66/F Attend Dr: Salina Ro Acct: [id number] Unit: [id number] Status: ADM IN Location: [facility] [id number] Re10/29/16 Disch: Specimen: [id number] Collected: 10/30/16 Status: COMP Req#: [id number] Received: 10/30/16 Source: URINE CC Sp Desc : HUMBERTO White Dr: Jose R Talbot MD Ordered: URINE CULT Procedure Result Verified Site Microbiology CLARE CULT URINE Final 11/01/16-716 Organism 1 KLEBSIELLA PNEUMONIAE U COLONY COUNT/QUANTITY >100,000 CFU/ml KLEBSIELLA PNEUMONIAE Cefazolin-predicts results for the oral agents, cefaclor,cefdinir, cefpodoximen, cefprozil, cefuroximne axetil, cephalexin and loracarbed when used for therapy of uncomplicated UTI's due to E. coli, K. pneumoniae, and Proteus mirabilis. Cefpodoxime, cefdinir and cefuroxime axetil may be tested individually because some isolates may be susceptible to these agents while testing resistant to cefazolin. (CLSI O802-U29 pg 53) 1. KLEBSIELLA PNEUMONIAE M.I.C Interp --------- ------ * AMOXICILLIN/CLAVULATE 4 S * AMPICILLIN R * CEFAZOLIN (CEPHALOSPORIN) UTI 4 S * CEFEPIME <=1 S * CEFTRIAXONE <=1 S * CEFUROXIME SODIUM <=1 S * CIPROFLOXACIN <=0.25 S * ERTAPENEM <=0.5 S * GENTAMICIN <=1 S * IMIPENEM <=1 S * LEVOFLOXACIN <=0.12 S * NITROFURANTOIN <=16 S * TETRACYCLINE <=1 S * TOBRAMYCIN <=1 S * TRIMETHOPRIM/SULFAMETHOXAZOLE <=20 S RUN DATE: 10/30/16 [facility] LIVE PAGE 1 RUN TIME: 827 Specimen Inquiry PHYSICIAN Name: TUSHARWILLIE Age/Sex: 66/F Attend Dr: Salina Ro Acct: [id number] Unit: [id number] Status: ADM IN Location: [facility] [id number] Re10/29/16 Disch: Specimen: [id number] Collected: 10/29/16 Status: COMP Req#: [id number] Received: 10/30/16 Source: DEBBIE Sp Desc : Subm Dr: Anay Heaton DO Ordered: RVGeno Comments: Collected by Nurse/Unit? Y/N Y Procedure Result Verified Site Microbiology ADENOVIRUS RESPIRATORY PCR Final 10/30/16 Not Detected CORONOVIRUS 229E Final 10/30/16 Not Detected CORONOVIRUS HKU1 Final 10/30/16 Not Detected CORONOVIRUS NL63 Final 10/30/16 Not Detected CORONOVIRUS OC43 Final 10/30/16 Organism 1 CORONAVIRUS OC43 CORONOVIRUS 0C43 DETECTED TIME CALLED: 825 DATE CALLED: 10/30/16 FLOOR/DOCTOR: HUONG/JEANNINE Vera CALLED BY: VS INFLUENZA A PCR Final 10/30/16 Not Detected INFLUENZA B PCR Final 10/30/16 Not Detected METAPNEUMOVIRUS PCR Final 10/30/16 Not Detected RHINOVIRUS OR ENTEROVIRUS PCR Final 10/30/16 Not Detected PARAINFLUENZA 1 PCR Final 10/30/16 Not Detected PARAINFLUENZA 2 PCR Final 10/30/16 Not Detected PARAINFLUENZA 3 PCR Final 10/30/16 Not Detected PARAINFLUENZA 4 PCR Final 10/30/16 Not Detected RESP SYNCYTIAL VIRUS PCR Final 10/30/16 Not Detected CHLAMDOPHILIA PNEUMONIAE PCR Final 10/30/16 Not Detected MYCOPLASMA PNEUMONIAE PCR Final 10/30/16 MYCO PNEUMONIAE PCR Not Detected Reference Interval Not Detected AUTISM TEACHER swab is the only specimen type cleared by the FDA. Nasal wash, tracheal aspirate, and bronchial lavage specimen types have not been cleared by the FDA. Therefore results on any specimen type other than nasopharyngeal are considered investigational testing only. Discharge Medications Discharge Medications Cholecalciferol (Vitamin D3) (Vitamin D3) 2,000 Unit Tablet 2,000 UNIT PO QAM ( Reported) Fluticasone/Salmeterol (Advair 250-50 Diskus) 60 Puff/Inh Disk 1 PUFF IH BID ( Reported) Heparin Sodium,Porcine (Heparin Sodium) 5,000 Unit/1 Ml Vial 5,000 UNIT SUBQ Q8 Prescribed by: JOSEPH FOX DO Ipratropium/Albuterol Sulfate (Iprat-Albut 0.5-3(2.5) mg/3 mL Inhalant Soln) 3 Ml Ampul.neb 3 ML NEB Q4 Prescribed by: JOSEPH FOX DO Methylprednisolone Sod Succ/Pf (Solu-Medrol 40 mg Vial) 40 Mg/1 Ml Vial 60 MG IVPUSH Q6 Prescribed by: JOSEPH FOX DO Nicotine 21 mg/24 hr Patch (Nicotine 21 mg/24 hr Patch) 1 Each Patch.td24 1 PATCH TOPICAL DAILY Prescribed by: JOSEPH FOX DO Paroxetine (Paroxetine) 40 Mg Tablet 40 MG PO HS (Reported) Tiotropium Johnson (Spiriva) 18 Mcg Cap.w.dev 18 MCG IH DAILY (Reported) As needed Albuterol Neb Soln (Albuterol Neb Soln) 2.5 Mg/3 Ml Vial.neb 2.5 MG INHALATION Q4H PRN PRN For Shortness of Breath (Reported) Albuterol Neb Soln (Albuterol Neb Soln) 2.5 Mg/3 Ml Vial.neb 2.5 MG NEB Q2H PRN PRN For Shortness of Breath Prescribed by: JOSEPH FOX DO Clonazepam (Clonazepam) 0.5 Mg Tab 0.5-1 MG PO BID PRN PRN For Anxiety (Reported ) Fentanyl Citrate (Fentanyl 0.05 mg/ml Vial) 100 Mcg/2 Ml Vial 50 MCG IVPUSH Q2H PRN PRN For Severe Pain Prescribed by: JOSEPH FOX DO Lorazepam (Lorazepam Inj) 2 Mg/1 Ml Vial 1 MG IVPUSH Q4H PRN PRN For Anxiety or Agitation Prescribed by: JOSEPH FOX DO Followup Plan Disposition: Transfer to [facility]. Accepting Physician - Dr. Cuellar Discharge Activity: Other (Per Physical Therapy at [place]) Patient Instructions You are being transferred to [facility] for further recovery and rehabilitation. Time spent Greater than 35 minutes Attending Statement The patient was seen and examined together with Dr. Fox on 11/04/16 and I agree with the history, exam and plan as outlined in the note above. copies to: Shimon Joshi MD, Bob A DO Nov 04, 2016 14:41 Erica Whittington DO November 11, 2016 17:34 Patient Instructions You are being transferred to [facility] for further recovery and rehabilitation. copies to: Shimon Joshi MD, Bob A DO Nov 04, 2016 14:41
--- NOTE | 2016-11-04 14:43 | NUR ---
Social Work Note: Discharge Data& Assessment: EMR reviewed. Per pt is medically ready to transfer to [facility] for Continued Care and treatment. Per Chhaya from [facility], pt is accepted at the [place] location and is able to transfer to their facility today. MD and fish house worker updated. SW met with pt family at bedside notified them of [facility] Acceptance. Pt family denies any questions regarding [facility] and is agreeable to plan. Lawn Care Specialist arranging transportation. SW to continue to follow for transport time. No other discharge needs identified a this time. Al updated and agreeable to plan. Plan: Per pt is medically stable to transfer to [facility] today at [facility]. Pt family, MD and food and nutrition services supervisor all updated and agreeable to plan. No other discharge needs identified a this time. FARZANEH Bolaños
--- NOTE | 2016-11-04 17:13 | NUR ---
Transfer Note I: Report given to RN receiving pt at [facility] at [place]. Report given to ambulance RN Rohit. Pt transferred via [facility]. Family at bedside and in route to [facility]. Ativan 1 mg IV given for anxiety.
[2016-11-05] MEDS ORDERED: MethylprednisoLONE Sodium Succinate 40 mg/mL Inj IVPUSH SCH (08:30)
[2016-11-06] MEDS ORDERED: MethylprednisoLONE Sodium Succinate 40 mg/mL Inj IVPUSH SCH (08:30)
[2016-11-07] MEDS ORDERED: MethylprednisoLONE Sodium Succinate 40 mg/mL Inj IVPUSH SCH (08:30)
[2016-11-08] MEDS ORDERED: predniSONE 20 mg Tablet PO SCH (08:00)
== END 2016-11-04 17:22 | DRG 4 ==
LOC: SED 21:42 → PCC 22:58 → CCU 10-30 06:40
PROVIDERS: ADMIT Internal Medicine; ATTEND Internal Medicine
PROC: 5A1935Z Respiratory Ventilation, Less than 24 Consecutive Hours (ICD-10-PCS; 2016-10-30)
PROC: 4A033R1 Measurement of Arterial Saturation, Peripheral, Percutaneous Approach (ICD-10-PCS; 2016-10-30)
PROC: 0BH17EZ Insertion of Endotracheal Airway into Trachea, Via Natural or Artificial Opening (ICD-10-PCS; 2016-10-30)
PROC: 5A09357 Assistance with Respiratory Ventilation, Less than 24 Consecutive Hours, Continuous Positive Airway Pressure (ICD-10-PCS; 2016-10-31)
PROC: 0BH17EZ Insertion of Endotracheal Airway into Trachea, Via Natural or Artificial Opening (ICD-10-PCS; 2016-11-01)
PROC: 0DH63UZ Insertion of Feeding Device into Stomach, Percutaneous Approach (ICD-10-PCS; 2016-11-01)
PROC: 5A1945Z Respiratory Ventilation, 24-96 Consecutive Hours (ICD-10-PCS; 2016-11-01)
PROC: 0B110F4 Bypass Trachea to Cutaneous with Tracheostomy Device, Open Approach (ICD-10-PCS; principal; 2016-11-01 15:00)
DX: J96.21 Acute and chronic respiratory failure with hypoxia (principal); E43 Unspecified severe protein-calorie malnutrition; J44.1 Chronic obstructive pulmonary disease with (acute) exacerbation; Z68.1 Body mass index [BMI] 19.9 or less, adult; R64 Cachexia; N39.0 Urinary tract infection, site not specified; E87.0 Hyperosmolality and hypernatremia; J98.8 Other specified respiratory disorders; B97.29 Other coronavirus as the cause of diseases classified elsewhere; F17.210 Nicotine dependence, cigarettes, uncomplicated; E87.5 Hyperkalemia; F41.9 Anxiety disorder, unspecified; J96.22 Acute and chronic respiratory failure with hypercapnia; Z96.642 Presence of left artificial hip joint; B96.1 Klebsiella pneumoniae [K. pneumoniae] as the cause of diseases classified elsewhere

== ENCOUNTER 2016-12-06 00:39 | Day surgery (SDC) | payer MEDICARE ==
[~2016-12-06 00:39] MED LIST changes: +ADV250INH IH; +ALBU2.5V4 INHALATION; +ALBU2.5V4 NEB; -ALBU8.5H2 IH; -ALEN70TA2 PO; -Albuterol/Ipratropium NEB; -CEFU250T2 PO; +CHOL200025 PO; -ERGO500029 PO; +FENT50VI8 IVPUSH; -FLUT12AE8 IH; +HEPA500017 SUBQ; -Hydrocodone/Acetaminophen PO; +IPRA3AMP NEB; +LORA2VIA3 IVPUSH; +METH40VI32 IVPUSH; +NICO1PAT6 TOPICAL; -PRE20 PO; +TIOT18CA3 IH
--- NOTE | 2016-12-06 17:25 | NUR ---
no call / no show for 12/06 appt to [place] PICC line call placed to pt; no answer; message left requesting call back
== END 2016-12-06 23:59 ==
LOC: MOCO 00:39
PROVIDERS: ATTEND Family Medicine
DX: Z45.2 Encounter for adjustment and management of vascular access device (principal); Z53.29 Procedure and treatment not carried out because of patient's decision for other reasons

== ENCOUNTER 2017-04-07 16:49 | Inpatient (IN) | payer MEDICARE ==
[~2017-04-07] VITALS: Ht 160 cm; Wt 46.4 kg
[2017-04-07] VITALS (10 sets, daily range): BP systolic 104–191; BP diastolic 54–93; PULSE 88–111; RESP 22–38; O2SAT 90–98
--- NOTE | 2017-04-07 16:59 | ED.REPORT ---
HPI-Dyspnea / Wheezing Date of Service Apr 07, 2017 ED Provider: Karlo Sheehan MD The pt is a 66 y/o female w/ a hx of COPD and psoriasis presenting to the ED via EMS due to wheezing onset 2 weeks ago. She also describes a non-productive cough, and mild diaphoresis. She reports occasional COPD exacerbations since then, w/ the most recent one being 3 weeks ago. Denies fevers, chills, nausea, or vomiting. The pt has used her inhaler w/o relief. The pt has at home oxygen available to her but has not felt the need to use it. The pt was seen here in the ED 5 months ago and needed to be hospitalized for a COPD exacerbation. Nursing Notes Stated Complaint: SOB Chief Complaint: SOB Nursing Notes Reviewed: Yes (Quixby, Impulse[employer]er not reconciled) Allergies: Coded Allergies: No Known Allergies (Unverified Allergy, Unknown, 04/07/17) Scheduled Alendronate/Vitamin D3 (Alendronate/Vitamin D3) 1 Each Tablet 1 TAB PO every friday Fluticasone/Salmeterol (Advair 250-50 Diskus) 60 Puff/Inh Disk 1 PUFF IH BID Paroxetine (Paroxetine) 40 Mg Tablet 40 MG PO HS Tiotropium Henderson (Spiriva) 18 Mcg Cap.w.dev 18 MCG IH DAILY Scheduled PRN Albuterol Neb Soln (Albuterol Neb Soln) 2.5 Mg/3 Ml Vial.neb 2.5 MG INHALATION Q4H PRN PRN For Shortness of Breath Albuterol Sulfate (Ventolin HFA Inhaler) 200 Puff/18 Gm Inhaler 1-2 PUFFS INH q4 hours PRN PRN For Shortness of Breath General Time Seen by MD: 16:55 Chief Complaint Shortness of breath Hx Obtained From: Patient, EMS Arrived By: Ambulance Sudden in Onset?: Yes Onset Occurred: More than a week ago... (2 weeks) Symptom Duration: Since onset Recent Healthcare: Recent doctor visit, Recent hospitalization Similar Sx Previous: Yes Past Medical History Past Medical History Notes: prior intubation for resp failure Past Medical History Psoriasis Pneumonia Reports: COPD Past Surgical History Hip replacement Polyp surgery s/p trach Family History Noncontributory Smoking History Current Every Day Smoker Social History Other Social History: Good social support, , Local resident Ambulatory Status Independent Review of Systems Constitutional: Denies: Chills, Fever Respiratory: Reports: Non-productive cough, Shortness of breath, Denies: Prod cough, clear Skin: Reports Diaphoresis Complete sys rev & neg: except as marked. GI: Denies: Nausea, Vomiting Physical Exam Initial Vital Signs Vital Signs (First) Date Time Temp Pulse Resp B/P Pulse Ox O2 Delivery O2 Flow Rate FiO2 04/07/17 17:11 36.8 88 38 159/87 98 Simple Mask 04/07/17 17:15 2 Initial VS: Reviewed, Unavailable (none on chart) Head / Eyes: Atraumatic, Normocephalic, PERRL ENT: Mucous membranes moist, Conjunctiva normal, No scleral icterus Extremities: Vascular intact, Neuro intact, No swelling, No tenderness Skin: Warm, Dry, No cyanosis Neurologic: Alert, Oriented, Nonfocal Psychiatric: Mood/affect normal, Behavior normal, Normal thought content General/Constitutional: Awake, Alert Cachectic Pt appears older Neck: Atraumatic, Supple, Full range of motion Respiratory / Chest: Breath sounds = bilat Profoundly bronchospastic throughout all lung beavers; Dyspneic but able to converse; Moderate respiratory distress; Cardiovascular: Heart rate NL, Regular rhythm, Heart sounds NL Interpretation & Diagnostics Lab Results Interpretation Result Diagram: 04/07/17 1753 04/07/17 1753 Test 04/07/17 17:53 White Blood Count 11.4th/mm3 (3.8-10.1) Red Blood Count 4.40mil/mm3 (3.90-5.20) Hemoglobin 13.8g/dL (12.0-15.6) Hematocrit 42.6% (35.0-46.0) Mean Corpuscular Volume 96.8fL (81-100) Mean Corpuscular Hemoglobin 31.4pg (27.0-35.0) Mean Corpuscular Hemoglobin Concent 32.4% (32.0-37.0) Red Cell Distribution Width 14.4% (12.3-15.4) Platelet Count 345bil/L (150-400) Neutrophils (%) (Auto) 55.8% (40-74) Lymphocytes (%) (Auto) 36.2% (14-46) Monocytes (%) (Auto) 5.3% (4-12) Eosinophils (%) (Auto) 2.0% (0-5) Basophils (%) (Auto) 0.4% (0-3) Sodium Level 141mEq/L (134-144) Potassium Level 3.7mEq/L (3.5-5.2) Chloride Level 104mEq/L (97-108) Carbon Dioxide Level 25mmol/L (18-29) Blood Urea Nitrogen 17mg/dL (8-27) Creatinine 0.58mg/dL (0.57-1.00) Estimat Glomerular Filtration Rate 149mL/min (>59) Glucose Level 109mg/dL (60-99) Lactic Acid Level 1.3mmol/L (0.4-2.0) Calcium Level 9.1mg/dL (8.5-10.1) Magnesium Level 2.0mg/dL (1.6-2.6) Total Bilirubin 0.5mg/dL (0.0-1.2) Aspartate Amino Transf (AST/SGOT) 16U/L (0-50) Alanine Aminotransferase (ALT/SGPT) 10U/L (0-32) Alkaline Phosphatase 90U/L (25-165) Troponin T < 0.010ug/L (0.0-0.011) Pro-B-Type Natriuretic Peptide 257.5pg/mL (0-301) Total Protein 6.3g/dL (6.4-8.4) Albumin 4.1g/dL (3.4-5.0) Lab Results Interpretation: CBC mild nonspecific leukocytosis CMP normal Blood cultures pending Lactic acid normal Troponin negative BNP negative ECG Interpretation ECG Interpretation: NSR Rate 87 No ischemia Improved compared w/ previous EKG Time: 17:25 Interpreted by: ED physician X-Ray Chest Interpretation Chest Xray Interpretation: IMPRESSION: Mild atypical pneumonia. Dictated by: Leslie Sibley M.D. on 04/07/2017 at 18:01 Approved by: Leslie Sibley M.D. on 04/07/2017 at 18:01 View: Portable, 1 view Interpretation / Wet Read by: Interpret - Radiologist Re-Eval/Medical Decision Med Decision/Clinical Course This is a 66-year-old female with severe COPD-she's been previously intubated, and one up requiring a tracheostomy and PEG with her last admission in October 2016, was done well, but gets frequent low level exacerbation since recently treated with a steroid taper possible antibiotic beginning of March-who now presents with increasing wheezing, nonproductive cough, since the past 1-2 weeks. The states it's been getting slowly worse for 2 weeks, she thought she been getting worse for 1 week. She went to urgent care where she is found to be working hard, severely bronchospastic and was sent by EMS. Oral dose of prednisone started nebulizers, she reports she is actually starting to improve on arrival. He prepared to initiate BiPAP given the reported level distress, but she is doing much better able to converse without findings of respiratory failure, she is perky and alert with no signs of fatigue, but is significantly bronchospastic. That she has cachexia, but no signs of heart failure or DVT/PE. The patient received multiple rounds of albuterol, Atrovent, steroids, magnesium -and has markedly improved, but is still bronchospastic and requires admission, Her x-ray is concerning for possible developing pneumonia, since being started on ceftriaxone and azithromycin. Her labs are reassuring. At time of admission the patient is markedly improved, she is comfortably able to speak in sentences , is eating dinner. Source of Hx: Old records, EMS Re-Evaluation/Progress #1: Time of Eval: 18:09 Re-Evaluation/Progress Note: Pt rechecked and is feeling better but continues to wheeze. Re-Evaluation/Progress #2: Time of Eval: 19:02 Re-Evaluation/Progress Note: Pt rechecked. Informed pt of need for admission. Pt understands and agrees with plan for admission. All questions addressed. Consultation : Referral / Consult Name: Salina Ro DO Consulted With: Hospitalist Call Returned at: 19:37 Ballistics Expert Forensic: Will see patient, Agrees with eval, Agrees with plan, Accepts admit Differential Diagnosis: Positive: COPD exacerbation, Pneumonia, Negative: Acute coronary syndrome, Exercise induced asthma, Foreign body airway, Hypertensive emergency, Hyperventilation, Pneumothorax, Pulmonary embolism Counseled Regarding: Diagnosis, Lab results, Need for admission Discharge & Departure Impression: Primary Impression: Acute exacerbation of chronic obstructive pulmonary disease Additional Impression: Pneumonia Pneumonia type: due to unspecified organism Laterality: unspecified laterality Lung location: unspecified part of lung Qualified Code: J18.9 - Pneumonia, unspecified organism Disposition: ADMITTED TO HOSPITAL Discharge Condition All VS Reviewed: Yes Condition: Stable Referrals: Shimon Joshi MD (PCP) Scribe Attestation Portions of this note were transcribed by Octaviano Whitaker. I, Dr. Sheehan personally performed the history, physical exam and medical decision-making; I reviewed and confirmed the accuracy of the information in the transcribed note. copies to: Shimon Joshi MD, Matthew F MD Apr 07, 2017 16:59 Octaviano Whitaker Apr 07, 2017 17:26 performed the history, physical exam and medical decision-making; I reviewed and confirmed the accuracy of the information in the transcribed note. copies to: Shimon Joshi MD, Matthew F MD Apr 07, 2017 16:59 Octaviano Whitaker Apr 07, 2017 17:26
[2017-04-07] MEDS ORDERED: Albuterol 2.5 mg/3 mL Inhalation Solution NEB ONE ×2 (17:00→21:20)
[2017-04-07] MEDS ORDERED: MethylprednisoLONE Sodium Succinate 62.5 mg/mL 2 mL Inj IVPUSH ONE (17:00)
[2017-04-07] MEDS ORDERED: Ipratropium 0.02% 0.5 mg/2.5 mL Inhalation Solution NEB ONE (17:00)
[2017-04-07] MEDS ORDERED: Magnesium Sulf 2 Gm/50mL Water 2 GM in IV Premix 1 EACH IV ONE (17:00)
--- NOTE | 2017-04-07 18:03 | DRSVH ---
PROCEDURE: X-RAY CHEST ONE VIEW, PORTABLE ([id number]) INDICATIONS: SHORTNESS OF BREATH TECHNIQUE: One view of the chest was acquired. COMPARISON: [facility], CR, XR CHEST 1VW (PORTABLE), 11/02/2016, 4:01. [facility], CR, XR CHEST 1VW (PORTABLE), 11/01/2016, 18:14. FINDINGS: Surgical changes and devices: None. Lungs and pleura: No pleural effusions or pneumothorax. Mild diffuse interstitial pulmonary opacity with basilar predominance. Mediastinum: Mediastinal contours appear normal. Heart size is normal. Bones and chest wall: No suspicious bony lesions. Overlying soft tissues appear unremarkable. IMPRESSION: Mild atypical pneumonia. Dictated by: Leslie Sibley M.D. on 04/07/2017 at 18:01 Approved by: Leslie Sibley M.D. on 04/07/2017 at 18:01
[2017-04-07] MEDS ORDERED: Azithromycin Inj 500 MG in Dextrose 5% w/Vial Mate 250 ML IV ONE (18:05)
[2017-04-07] MEDS ORDERED: cefTRIAXone Inj 2,000 MG in Dextrose 5% Minibag Plus 50 ML IV ONE (18:05)
[2017-04-07 18:17] LABS: BASOPHILS % (AUTO) 0.4 % (0-3); MONOCYTES % (AUTO) 5.3 % (4-12); Mean Corpuscular Hemoglobin 31.4 pg (27.0-35.0); Mean Corpuscular Volume 96.8 fL (81-100); NEUTROPHILS % (AUTO) 55.8 % (40-74); Platelet Count 345 bil/L (150-400)
[2017-04-07 18:43] LABS: TROPONIN T < 0.010 ug/L (0.0-0.011)
[2017-04-07] MEDS ORDERED: Ondansetron 2 mg/mL 2 mL Inj IVPUSH PRN (19:50)
[2017-04-07] MEDS ORDERED: Albuterol 2.5 mg/3 mL Inhalation Solution NEB PRN (19:50)
[2017-04-07] MEDS ORDERED: Polyethylene Glycol (PEG) 17 Gm Powder PO PRN (19:50)
[2017-04-07] MEDS ORDERED: Alum-Mag Hydrox-Simeth 30 mL Suspension PO PRN (19:50)
--- NOTE | 2017-04-07 19:58 | PCM.HPMED ---
Subjective Date of Service Apr 07, 2017 Primary Provider: Admitting Physician: Primary Care Physician: Shimon Joshi MD Attending Physician: Chief Complaint: difficulties breathing History of Present Illness: 66yoF with past medical history of COPD and respiratory failure admitted with COPD exacerbation. Patient states that since prior admission in 10/2016 she has continued to have difficulties with her COPD. More recently she has had difficulties over the past 2-3 weeks. 2-3 weeks ago she was seen in urgent care for COPD exacerbation and given antibiotics and a steroid taper. She improved with this treatment however when steroid taper was complete symptoms gradually came back. Over the past week patient states that her breathing has become progressively worse. Nebulizers and inhalers have become ineffective. Her at bedside endorses wheezing that could be heard "from across the house". While patient does mention that she has improved since presentation she continues to be far from baseline in regards to her breathing which is also causing increase in her anxiety. Mrs. Finley does have a history of COPD requiring intubation. During her last admission 10/2016 she required bipap on admission and required intubation with subsequent trach placement secondary to COPD. Review of Systems: complete review of systems obtained. positive as per hpi otherwise negative. Allergies Coded Allergies: No Known Allergies (Unverified Allergy, Unknown, 04/07/17) Home Medications Albuterol Neb / HFA Alendronate / Vit D3 Fluticasone / Salmeterol Paroxetine Tiotropium PMH Chronic respiratory failure COPD Anxiety/depression Surgical History Right hip replacement Family History Mother: alcoholism Father: alcoholism Social History Hx Alcohol Use: No Hx Substance Use: No Hx Tobacco Use: No Smoking Status: Current Every Day Smoker, Former Smoker Living Arrangement: with Family Exam Vital Signs Vital Sign - Last Date Time Temp Pulse Resp B/P Pulse Ox O2 Delivery O2 Flow Rate FiO2 04/07/17 17:25 91 26 132/89 94 Simple Mask 04/07/17 17:15 2 04/07/17 17:11 36.8 Exam General: Alert, Oriented X3, Cooperative, No acute distress but anxious, daughter and at bedside Eyes: PERRLA, Scleral Anicteric Mouth: Mouth Normal, Mucous Membranes Moist/Emily Neck: Supple, no Thyromegaly, trachea central. Chest & Lungs: diffuse expiratory wheeze, able to speak in sentences Cardiovascular: distant unable to discern heart sounds due to wheeze, Regular Rate/Rhythm Pulses: Radial (present and equal), Dorsalis Pedi (present and equal) Abdomen: Soft,Non-tender, Non-distended, Normoactive bowel tones. Musculoskeletal: Unremarkable. Normal range of motion, no swollen or erythematous joints Extremities: No edema, no cyanosis, no clubbing. Skin: No rashes. Warm and dry, no erythematous areas Neurological: Grossly neurologically intact, Normal Speech, Sensation Intact Lymphatic: Lymph nodes Cervical and Axillary not palpable. Lab and Diagnostics Result Diagram: 04/07/17175204/07/171752 X-Rays, CTs and MRIs Patient Name: WILLIE FINLEY MR#: [id number] Location: [facility] [place] Ordering Phys: Karlo Sheehan MD Date of Service: 04/07/171655 PROCEDURE: X-RAY CHEST ONE VIEW, PORTABLE ([id number]) INDICATIONS: SHORTNESS OF BREATH TECHNIQUE: One view of the chest was acquired. COMPARISON: [facility], CR, XR CHEST 1VW (PORTABLE), 11/02/2016, 4: 01. [facility], CR, XR CHEST 1VW (PORTABLE), 11/01/2016, 18:14. FINDINGS: Surgical changes and devices: None. Lungs and pleura: No pleural effusions or pneumothorax. Mild diffuse interstitial pulmonary opacity with basilar predominance. Mediastinum: Mediastinal contours appear normal. Heart size is normal. Bones and chest wall: No suspicious bony lesions. Overlying soft tissues appear unremarkable. IMPRESSION: Mild atypical pneumonia. Dictated by: Leslie Sibley M.D. on 04/07/2017 at 18:01 Approved by: Leslie Sibley M.D. on 04/07/2017 at 18:01 Assessment & Plan 66yoF with past medical history of COPD and respiratory failure admitted with COPD exacerbation. Currently stable on admission. COPD exacerbation, acute, POA -patient with history of severe COPD requiring intubation and trach during prior admission -reported as severe at urgent care however improved following presentation in ED -methylpred 125mg q6hr -albuterol neb q2PRN -albuterol ipratropium neb q4HR scheduled -abx as below - please ensure patient has spacer on discharge CAP, acute, POA -CXR consisted with pneumonia, reviewed on admission -ceftriaxone and azithromycin started in ED, will continue -strep pneumo urine antigen,MRSA screen, sputum culture, pcr ordered Elevated blood glucose, acute, POA -no history of diabetes -will likely be elevated given methylpred, may start low correction SSI -hgbA1c pending Anxiety and depression, chronic, POA -continue home paroxetine Patient is admitted under inpatient status and will require >2 midnights of admission due to severity of illness Pain Evaluation: Adequate Pain Control GI Prophylaxis: Not indicated VTE Prophylaxis: Sub-Q Heparin (Unfractionated) Resuscitation Status: CPR: Attempt Resuscitation Salina Ro DO Apr 07, 2017 19:58
[2017-04-07] MEDS ORDERED: ALEN70TA46 PO (20:15)
[2017-04-07] MEDS ORDERED: ALBU18HF INH (20:15)
[2017-04-07] MEDS: Albuterol-Ipratropium 3 mL Inhalation Solution NEB SCH (21:33)
--- NOTE | 2017-04-07 21:35 | NUR ---
Admit To floor from ED at 2039. Alert and oriented, and accompanied by and daughter. Denies pain. Able to walk from stretcher to standing scale and bed, but severely short of breath with this effort. Sats 87% on 2 liters nasal cannula, then up to low 90's after resting. Placed on continuous pulse oximetry. States she's had her flu shot already this season. Plan of care discussed and questions answered. Tele sinus tach around 105. MD in to see patient and orders received.
[2017-04-07 21:39] LABS: APPEARANCE,URINE CLEAR (CLEAR,HAZY); COLOR,URINE YELLOW (YELLOW); OCCULT BLOOD,URINE NEGATIVE (NEGATIVE); UROBILINOGEN,URINE NORMAL (NORMAL)
[2017-04-07] MEDS: MethylprednisoLONE Sodium Succinate 62.5 mg/mL 2 mL Inj IVPUSH SCH (22:27)
[2017-04-07] MEDS: PARoxetine 20 mg Tablet PO SCH (22:53)
[2017-04-08] VITALS (16 sets, daily range): BP systolic 119–150; BP diastolic 61–78; PULSE 89–109; RESP 20–28; O2SAT 92–95
[2017-04-08] MEDS: Albuterol-Ipratropium 3 mL Inhalation Solution NEB SCH ×7 (00:07→23:54)
[2017-04-08] MEDS: MethylprednisoLONE Sodium Succinate 62.5 mg/mL 2 mL Inj IVPUSH SCH ×2 (04:18→10:33)
--- NOTE | 2017-04-08 04:32 | NUR ---
Sats Placed on continuous pulse oximetry for closer monitoring. Sats have remained around 93-94% at rest on 2 liters nasal cannula. With any exertion, sats decreased to upper 80's. Lungs continue coarse with wheezing, but improved with neb treatments. Patient has been awake all night, stating this is due to the nebs and steroids, although she states she's feeling much better.
[2017-04-08 05:23] LABS: BASOPHILS % (AUTO) 0 % (0-3); EOSINOPHILS % (AUTO) 0 % (0-5); MONOCYTES % (AUTO) 0.5 % (4-12); Mean Corpuscular Hemoglobin 31.2 pg (27.0-35.0); Mean Corpuscular Volume 96.5 fL (81-100); NEUTROPHILS % (AUTO) 88.3 % (40-74); Platelet Count 322 bil/L (150-400)
--- NOTE | 2017-04-08 10:35 | NUR ---
Social Work: Initial Assessment/Multidisciplinary Rounds D: Per EMR review, pt is a 66 year old female admitted for acute COPD exacerbation. Patient is Medicare with no supplement, LTC or VA benefits. PCP is Shimon Joshi MD. NOK is Stephen Elizalde, spouse, . Advanced Directives not completed- information provided. Readmit score not entered at this time. Pt discussed in Multidisciplinary rounds. Capacity for self care discussed; no concerns or needs at this time. DUST BRUSH ASSEMBLER met with the patient and her daughter at bedside. Social work/dcp role explained, contact information and discharge planning checklist provided. See initial assessment. Patient lives with her spouse in [place] in a single story home with several steps to enter. Patient is I with ADLs with the occasional use of a 4WW and cane. Patient is not driving and relies on her spouse for transportation. Patient has a history with HH after her discharge from [facility]. She does not recall which company it was through. Patient has never had SNF. Pt on 2L 02 at baseline but does not remember which company it is through. Patient and daughter are receptive to discharge planning if needs arise. A: Pt who is I at baseline with ADLs. P: Evolving; Anticipate pt to be able to discharge home via POV with possible supportive services from ; DUST BRUSH ASSEMBLER will continue to follow and will arrange for services pending provider orders. FARZANEH Erickson Addendum: 04/08/17 at 1047 by ELIZABETH MERINO SS Amended: Links added.
--- NOTE | 2017-04-08 13:43 | PCM.PNMED ---
Subjective Date of Service Apr 08, 2017 Subjective Patient was seen and examined today. She states that she is feeling much better than yesterday. Nursing notes state that patient desaturated into the upper 80s last night upon exertion this quickly improved with nebulizer treatment. Exam Vital Signs Vital Sign - Last Date Time Temp Pulse Resp B/P Pulse Ox O2 Delivery O2 Flow Rate FiO2 04/08/17 12:43 108 20 92 Nasal Cannula 2.00 04/08/17 12:35 36.7 150/78 Intake and Output 04/07/17 04/07/17 04/08/17 Cumulative From/Thru 15:00 23:00 07:00 04/07/17 17:11 - 04/08/17 06:43 Intake Total 675 ml 675 ml Output Total 900 ml 900 ml Balance -225 ml -225 ml Intake IV Total 675 ml 675 ml Output Urine Total 900 ml 900 ml Exam General: No acute distress, well-developed, well-nourished, appropriately interactive HEENT: Normocephalic, atraumatic. Neck: Supple with full range of motion. No jugular venous distension. No bruits. Cardiovascular: Tachycardic at 100 and regular rhythm with no murmurs, rubs, or gallops appreciated Pulmonary: Wheezes heard diffusely throughout, no crackles, good air movement. Abdomen: Soft, nontender, nondistended. Extremities: No clubbing, cyanosis, edema, or lymphadenopathy appreciated. Skin: Normal temperature, turgor, and texture; no rash, ulcers, or subcutaneous nodules appreciated. Neurological: Cranial nerves grossly intact. Normal muscle strength, tone, and bulk. Psychiatric: Normal mood and affect. Alert and oriented to person, place, and time. IVs and Medications Medications Reviewed: Medications were reviewed in detail Lab and Diagnostics Result Diagram: 04/08/17 0508 04/08/17 0508 X-Rays, CTs and MRIs Patient Name: WILLIE FINLEY MR#: [id number] [place] [facility] [place] Phys: Karlo Sheehan MD Date of Service: 04/07/17 165 PROCEDURE: X-RAY CHEST ONE VIEW, PORTABLE ([id number]) INDICATIONS: SHORTNESS OF BREATH TECHNIQUE: One view of the chest was acquired. COMPARISON: [facility], CR, XR CHEST 1VW (PORTABLE), 11/02/2016, 4: 01. [facility], CR, XR CHEST 1VW (PORTABLE), 11/01/2016, 18:14. FINDINGS: Surgical changes and devices: None. Lungs and pleura: No pleural effusions or pneumothorax. Mild diffuse interstitial pulmonary opacity with basilar predominance. Mediastinum: Mediastinal contours appear normal. Heart size is normal. Bones and chest wall: No suspicious bony lesions. Overlying soft tissues appear unremarkable. IMPRESSION: Mild atypical pneumonia. Dictated by: Leslie Sibley M.D. on 04/07/2017 at 18:01 Approved by: Leslie Sibley M.D. on 04/07/2017 at 18:01 12-lead ECG EKG performed 04/07/17, sinus rhythm rate of [address] changes Assessment & Plan 66yoF with past medical history of COPD and respiratory failure admitted with COPD exacerbation and suspected community-acquired pneumonia. Hospital day 2 COPD exacerbation, acute, POA, ongoing -patient with history of severe COPD requiring intubation and trach during prior admission -reported as severe at urgent care however improved following presentation in ED -Transition to oral prednisone 40 mg daily -albuterol neb q2PRN -albuterol ipratropium neb q4HR scheduled -abx as below -Azithromycin 500 mg daily -please ensure patient has spacer on discharge CAP, acute, POA, ongoing -CXR consisted with pneumonia - WC 11.4 on admission, 10.4 today -ceftriaxone started in ED, will continue -strep pneumo urine antigen negative, -MRSA screen, sputum culture ordered - Viral PCR negative Elevated blood glucose, acute, POA, ongoing -no history of diabetes -ikely elevated from methylpred -hgbA1c 5.8 on 04/07/17 Anxiety and depression, chronic, POA -continue home paroxetine Patient will likely stay 1-2 more days to resolve her COPD exacerbation GI Prophylaxis: Not indicated VTE Prophylaxis: Sub-Q Heparin (Unfractionated) Resuscitation Status: CPR: Attempt Resuscitation Time spent 25 minutes Attending Statement I have seen and evaluated the patient at bedside in addition to directly supervising care provided by resident physician Dr Ramirez on 04/08/2017. I agree with above documentation. Bjorn Ramirez DO Apr 08, 2017 13:43 Adán Fuentes DO Apr 09, 2017 07:43
[2017-04-08] MEDS: PARoxetine 20 mg Tablet PO SCH (21:40)
[2017-04-08] MEDS: cefTRIAXone Inj 2,000 MG in Dextrose 5% Minibag Plus 50 ML IV SCH (21:41)
[2017-04-08] MEDS: Azithromycin Inj 500 MG in Dextrose 5% w/Vial Mate 250 ML IV SCH (21:41)
[2017-04-09] VITALS (12 sets, daily range): BP systolic 135–150; BP diastolic 62–87; PULSE 82–114; RESP 18–28; O2SAT 91–94
[2017-04-09 05:12] LABS: Mean Corpuscular Hemoglobin 31.7 pg (27.0-35.0); Mean Corpuscular Volume 97.4 fL (81-100)
[2017-04-09] MEDS: Albuterol-Ipratropium 3 mL Inhalation Solution NEB SCH ×5 (05:34→20:06)
--- NOTE | 2017-04-09 06:38 | NUR ---
Respiratory Pt on 2L NC throughout shift with SpO2 approx. 91-94% at rest, and desaturations to 88-89% with exertion. Pt significantly labored in breathing after prolonged talking or exertion. VSS, tele ST 100s. Pt denies pain throughout shift.
[2017-04-09] MEDS: predniSONE 20 mg Tablet PO SCH (08:03)
--- NOTE | 2017-04-09 15:54 | NUR ---
took over patient care from ESTUARDO Miller [id number]
--- NOTE | 2017-04-09 16:12 | NUR ---
Social Work: Continued Discharge Planning Data & Assessment: EMR reviewed. Patient is on day 2 of hospitalization for acute COPD exacerbation per H&P. SW met with patient to discuss home health options. Prior to conversation, GATITO spoke with MD and obtained confirmation that home health order would be placed. SW provided patient with a home health choice list. Patient states that she has never had home health services in the past and did not have a preference. GATITO informed patient that [facility] has a rotating calendar of home health agencies that are used on a weekly basis. SW informed patient that home health could be arranged with the agency that is in this weeks rotation. Patient is in agreement. The home health agency this week is [facility]. Patient states that she will likely discharge tomorrow. Prior to discharge, MD will need to place home health order and complete F2F. GATITO will provide [facility] with access after previous steps are completed by MD. SW will continue to follow. Plan: Patient will discharge home with spouse when medically stable. Transportation will be provided by spouse. Patient will discharge with [facility]. MD will need to place HH order and complete F2F. GATITO will continue to follow. FARZANEH Barahona
--- NOTE | 2017-04-09 17:27 | NUR ---
transferred patient care back to [id number]
--- NOTE | 2017-04-09 17:53 | NUR ---
Multidisciplinary Communication [id number] - Discussed her care with Dr. Fuentes and the rest of the multidisciplinary team during morning rounds. Discussed her possible discharge tomorrow. She has had a fairly uneventful day receiving breathing treatments and scheduled medications. 2L of O2 via nasal cannula. No complaints. Care continues.
--- NOTE | 2017-04-09 18:22 | PCM.PNMED ---
Subjective Date of Service Apr 09, 2017 Subjective Patient was seen and examined today. She is resting comfortably in bed. He says that she was able to cough up a sputum sample today. She states that she is short of breath and desaturates if she gets up to use the commode. Nursing notes no acute overnight events. Exam Vital Signs Vital Sign - Last Date Time Temp Pulse Resp B/P Pulse Ox O2 Delivery O2 Flow Rate FiO2 04/09/17 17:12 94 20 93 Nasal Cannula 2.00 04/09/17 16:59 149/87 04/09/17 11:44 36.6 Intake and Output 04/08/17 04/08/17 04/09/17 Cumulative From/Thru 14:58 22:58 06:58 04/07/17 17:11 - 04/09/17 06:24 Intake Total 800 ml 300 ml 1775 ml Output Total 1100 ml 2000 ml Balance -300 ml 300 ml -225 ml Intake Oral 800 ml 800 ml IV Total 300 ml 975 ml Output Urine Total 1100 ml 2000 ml Exam General: No acute distress, well-developed, well-nourished, appropriately interactive HEENT: Normocephalic, atraumatic. Neck: Supple with full range of motion. No jugular venous distension. Cardiovascular: Regular rate and rhythm with no murmurs, rubs, or gallops appreciated Pulmonary: Diffuse wheezes heard throughout all lung beavers. Some rhonchi, No crackles. Abdomen: Bowel tones present. Soft, nontender, nondistended Extremities: No clubbing, cyanosis, edema, or lymphadenopathy appreciated. Skin: Normal temperature, turgor, and texture; no rash, ulcers, or subcutaneous nodules appreciated. Neurological: Cranial nerves grossly intact. Normal muscle strength, tone, and bulk. Psychiatric: Normal mood and affect. Alert and oriented to person, place, and time. IVs and Medications Medications Reviewed: Medications were reviewed in detail Lab and Diagnostics Result Diagram: 04/09/1742704/09/17427 X-Rays, CTs and MRIs Patient Name: WILLIE FINLEY MR#: [id number] [place] [facility] [place] Phys: Karlo Sheehan MD Date of Service: 04/07/17 2916 PROCEDURE: X-RAY CHEST ONE VIEW, PORTABLE ([id number]) INDICATIONS: SHORTNESS OF BREATH TECHNIQUE: One view of the chest was acquired. COMPARISON: [facility], CR, XR CHEST 1VW (PORTABLE), 11/02/2016, 4: 01. [facility], CR, XR CHEST 1VW (PORTABLE), 11/01/2016, 18:14. FINDINGS: Surgical changes and devices: None. Lungs and pleura: No pleural effusions or pneumothorax. Mild diffuse interstitial pulmonary opacity with basilar predominance. Mediastinum: Mediastinal contours appear normal. Heart size is normal. Bones and chest wall: No suspicious bony lesions. Overlying soft tissues appear unremarkable. IMPRESSION: Mild atypical pneumonia. Dictated by: Leslie Sibley M.D. on 04/07/2017 at 18:01 Approved by: Leslie Sibley M.D. on 04/07/2017 at 18:01 12-lead ECG EKG performed 04/07/17, sinus rhythm rate of [address] changes Assessment & Plan 66yoF with past medical history of COPD and respiratory failure admitted with COPD exacerbation and suspected community-acquired pneumonia. Hospital day 3 COPD exacerbation, acute, POA, ongoing -patient with history of severe COPD requiring intubation and trach during prior admission -reported as severe at urgent care however improved following presentation in ED -Transition to oral prednisone 40 mg daily -albuterol neb q2PRN -albuterol ipratropium neb q4HR scheduled -Azithromycin 500 mg daily -please ensure patient has spacer on discharge -Patient has oxygen at home though she does not use it regularly. We will encourage home use of oxygen. CAP, acute, POA, ongoing -CXR consisted with pneumonia - WC 11.4 on admission, 2.3 on 04/09/17, at that this point is likely due to steroid administration -ceftriaxone started in ED, will continue -MRSA screen negative, strep urine antigen negative - Viral PCR negative -Sputum sample obtained today for culture Elevated blood glucose, acute, POA, ongoing -no history of diabetes -130 today likely elevated from methylpred -hgbA1c 5.8 on 04/07/17 Anxiety and depression, chronic, POA -continue home paroxetine Patient will likely stay 1-2 more days to resolve her COPD exacerbation GI Prophylaxis: Not indicated VTE Prophylaxis: Sub-Q Heparin (Unfractionated) VTE Mechanical Devices: Intermittant Pneumatic CD Resuscitation Status: CPR: Attempt Resuscitation Time spent 25 minutes Attending Statement I have seen and evaluated patient at bedside in addition to directly supervising care provided by resident physician on 04/09/2017. I agree with above documentation. Bjorn Ramirez DO Apr 09, 2017 18:22 Adán Fuentes DO Apr 09, 2017 22:11
[2017-04-09] MEDS ORDERED: guaiFENesin 600 mg ER12 Tablet PO ONE (19:45)
[2017-04-09] MEDS: cefTRIAXone Inj 2,000 MG in Dextrose 5% Minibag Plus 50 ML IV SCH (19:48)
[2017-04-09] MEDS: Pantoprazole 20 mg ER24 Tablet PO SCH (21:17)
[2017-04-09] MEDS: PARoxetine 20 mg Tablet PO SCH (21:17)
[2017-04-09] MEDS: Azithromycin Inj 500 MG in Dextrose 5% w/Vial Mate 250 ML IV SCH (21:20)
[2017-04-10] VITALS (16 sets, daily range): BP systolic 105–169; BP diastolic 64–89; PULSE 64–103; RESP 9–28; O2SAT 90–96
[2017-04-10] MEDS: Albuterol-Ipratropium 3 mL Inhalation Solution NEB SCH ×6 (01:00→20:34)
[2017-04-10 03:15] LABS: Mean Corpuscular Hemoglobin 31.5 pg (27.0-35.0); Mean Corpuscular Volume 97.2 fL (81-100)
--- NOTE | 2017-04-10 03:58 | NUR ---
Respiratory Pt on 2L NC and tolerating well, Up to BSC with minimal desaturation. Pt is A&Ox3 and able to FLORES. No c/o of CP or increased SOB. VSS and Tele ST/T
[2017-04-10] MEDS: Pantoprazole 20 mg ER24 Tablet PO SCH ×2 (08:35→21:15)
[2017-04-10] MEDS: Azithromycin Inj 500 MG in Dextrose 5% w/Vial Mate 250 ML IV SCH (08:35)
[2017-04-10] MEDS: predniSONE 20 mg Tablet PO SCH (08:35)
[2017-04-10] MEDS: Albuterol 2.5 mg/3 mL Inhalation Solution NEB PRN ×2 (11:47→18:02)
--- NOTE | 2017-04-10 12:57 | PCM.PNMED ---
Subjective Date of Service Apr 10, 2017 Subjective Patient was seen and examined today. She is resting comfortably in bed and stated that she feels like she could probably go home today but wouldn't mind if she had to stay another night. Nursing states no acute overnight events. Respiratory therapy said that during her walk this morning she made it about 100 feet before becoming very wheezy and desaturating into the upper 80s. Her symptoms resolved with 3 L O2 by nasal cannula and rest. Exam Vital Signs Vital Sign - Last Date Time Temp Pulse Resp B/P Pulse Ox O2 Delivery O2 Flow Rate FiO2 04/10/17 12:13 36.6 103 24 136/78 94 Nasal Cannula 2.00 Intake and Output 04/09/17 04/09/17 04/10/17 Cumulative From/Thru 15:00 23:00 07:00 04/07/17 17:11 - 04/10/17 06:51 Intake Total 100 ml 950 ml 2825 ml Output Total 450 ml 800 ml 3250 ml Balance -350 ml 150 ml -425 ml Intake Oral 100 ml 600 ml 1500 ml IV Total 350 ml 1325 ml Output Urine Total 450 ml 800 ml 3250 ml # Voids 2 2 Exam General: No acute distress HEENT: Normocephalic, atraumatic. Neck: Supple with full range of motion. No jugular venous distension. Cardiovascular: Regular rate and rhythm with no murmurs, rubs, or gallops appreciated Pulmonary: Coarse breath sounds throughout, with wheezes heard on the right side. Good air movement. No crackles. Abdomen: Bowel tones present. Soft, nontender, nondistended. Extremities: No clubbing, cyanosis, edema Skin: Normal temperature, turgor, and texture; no rash Neurological: Cranial nerves grossly intact. Normal muscle strength, tone, and bulk. Reflexes, coordination, and sensory function within normal limits. No known gait impairment. Psychiatric: Normal mood and affect. Alert and oriented to person, place, and time. IVs and Medications Medications Reviewed: Medications were reviewed in detail Lab and Diagnostics Result Diagram: 04/10/1725404/10/17254 X-Rays, CTs and MRIs Patient Name: WILLIE FINLEY MR#: [id number] Location: [facility] [place] Ordering Phys: Karlo Sheehan MD Date of Service: 04/07/17 1656 PROCEDURE: X-RAY CHEST ONE VIEW, PORTABLE ([id number]) INDICATIONS: SHORTNESS OF BREATH TECHNIQUE: One view of the chest was acquired. COMPARISON: [facility], CR, XR CHEST 1VW (PORTABLE), 11/02/2016, 4: 01. [facility], CR, XR CHEST 1VW (PORTABLE), 11/01/2016, 18:14. FINDINGS: Surgical changes and devices: None. Lungs and pleura: No pleural effusions or pneumothorax. Mild diffuse interstitial pulmonary opacity with basilar predominance. Mediastinum: Mediastinal contours appear normal. Heart size is normal. Bones and chest wall: No suspicious bony lesions. Overlying soft tissues appear unremarkable. IMPRESSION: Mild atypical pneumonia. Dictated by: Leslie Sibley M.D. on 04/07/2017 at 18:01 Approved by: Leslie Sibley M.D. on 04/07/2017 at 18:01 12-lead ECG EKG performed 04/07/17, sinus rhythm rate of [address] changes Assessment & Plan 66yoF with past medical history of COPD and respiratory failure admitted with COPD exacerbation and suspected community-acquired pneumonia. Hospital day 4 COPD exacerbation, acute, POA, ongoing -patient with history of severe COPD requiring intubation and trach during prior admission -reported as severe at urgent care however improved following presentation in ED -Oral prednisone 40 mg daily -albuterol neb q2PRN -albuterol ipratropium neb q4HR scheduled -Azithromycin 500 mg daily -please ensure patient has spacer on discharge -Per respiratory therapy, on 04/02/17 patient became very wheezy and desaturated the upper 80s after walking 100 feet. This resolved with 3 L nasal cannula and rest. We will hold onto her for 1 more day. -Patient has oxygen at home though she does not use it regularly. We will encourage home use of oxygen. -We have ordered home health and physical therapy CAP, acute, POA, ongoing -CXR consisted with pneumonia - WC 11.4 on admission, 2.3 on 04/09/17, at that this point is likely due to steroid administration -ceftriaxone started in ED, will continue -MRSA screen negative, strep urine antigen negative - Viral PCR negative -Sputum sample obtained 04/10/17 for culture Elevated blood glucose, acute, POA, ongoing -no history of diabetes -130 today likely elevated from methylpred -hgbA1c 5.8 on 04/07/17 Anxiety and depression, chronic, POA -continue home paroxetine The plan is to discharge patient on 04/11/17. She has an appointment to see a senior benefits manager in [place] and have a PFT performed. GI Prophylaxis: Not indicated VTE Prophylaxis: Sub-Q Heparin (Unfractionated) VTE Mechanical Devices: Intermittant Pneumatic CD Resuscitation Status: CPR: Attempt Resuscitation Attending Statement The patient was seen and examined together with Dr. Ramirez on 04/10/2017 and I agree with the history, exam and plan as outlined in the note above. . Bjorn Ramirez DO Apr 10, 2017 12:57 Guilherme Granados MD Apr 11, 2017 16:43
[2017-04-10] MEDS: guaiFENesin 600 mg ER12 Tablet PO SCH ×2 (14:50→21:15)
[2017-04-10] MEDS: cefTRIAXone Inj 2,000 MG in Dextrose 5% Minibag Plus 50 ML IV SCH (21:15)
[2017-04-10] MEDS: PARoxetine 20 mg Tablet PO SCH (21:16)
[2017-04-11] VITALS (13 sets, daily range): BP systolic 125–173; BP diastolic 73–92; PULSE 84–110; RESP 18–24; O2SAT 89–96
[2017-04-11] MEDS: Albuterol-Ipratropium 3 mL Inhalation Solution NEB SCH ×6 (00:27→20:55)
[2017-04-11 03:12] LABS: Mean Corpuscular Hemoglobin 31.5 pg (27.0-35.0); Mean Corpuscular Volume 97.1 fL (81-100)
--- NOTE | 2017-04-11 03:54 | NUR ---
Anxiety-Fear/DC by 0900 for Pulmonology Appt Pt plans to DC tomorrow morning. Pt says that she must leave 0900 in order to make a pulmonology appointment in [place]. Pts lung sounds are coarse and wheezy at best. Scheduled and PRN nebs administered with some effect.
[2017-04-11] MEDS ORDERED: PRED-508 PO (06:44)
[2017-04-11] MEDS ORDERED: PANT20TA2 PO (06:44)
[2017-04-11] MEDS ORDERED: GUAI600T86 PO (06:44)
--- NOTE | 2017-04-11 06:56 | PCM.DIMED ---
Bjorn Ramirez DO 04/11/17 0651: Discharge Instructions Date of Service Apr 11, 2017 Dates of Hospitalization Apr 07, 2017 at 20:16 Discharge Diagnosis Discharge Diagnosis COPD exacerbation viral pneumonia Medication Instructions Additional med instructions We are sending you home with a 5 day course of prednisone. Take 2 of the 20 mg tablets twice daily.Your Pulmonary Dr. can change this if necessary. We are also continuing you on guaifenesin 1200 mg twice daily for 5 days. We are also sending you home with a 30 day supply of pantoprazole for acid reflux. Please take one 20 mg tablet twice daily. Test Results Test Results Your chest x-ray showed that you may have had a mild pneumonia on top of your COPD exacerbation. Diet Discharge Diet: Heart Healthy Activity Discharge Activity: Limited until seen by PCP Call your provider Call your provider for: Fever or Chills, Shortness of breath, Bleeding, Chest pain, Vomitting, Excessive diarrhea, Weakness (unilateral) Patient Instructions Patient Instructions Please follow-up with your pulmonary doctor today at noon, and follow any instructions may have for you. Please see your primary care physician 1-2 weeks. We are working on getting you home health to assist you with your COPD symptom management. We are also working on getting you physical therapy at home to make you stronger. Please seek medical attention if you start having worsening shortness of breath , chest pain or dizziness. Follow-up plan Follow-up with primary care provider in 1-2 weeks. Follow-up Provider: Shimon Joshi MD Follow-up with PCP in: 1 week Guilherme Granados MD 04/13/17 0918: Bjorn Ramirez DO Apr 11, 2017 06:51 Guilherme Granados MD Apr 13, 2017 09:18
--- NOTE | 2017-04-11 06:59 | PCM.DC.MED ---
Discharge Summary Date of Service Apr 11, 2017 Dates of Hospitalization Date of Hospital Admission Apr 07, 2017 at 20:16 Date of Discharge: Apr 11, 2017 Providers: Admitting Physician: Salina Ro DO Primary Care Physician: Shimon Joshi MD Attending Physician: Guilherme Granados MD Diagnosis at Time of Discharge Diagnosis at Time of Discharge COPD exacerbation viral pneumonia Procedures XRay, CTs & MRIs Patient Name: WILLIE FINLEY MR#: [id number] Location: [facility] – [place] Ordering Phys: Karlo Sheehan MD Date of Service: 04/07/17 1656 PROCEDURE: X-RAY CHEST ONE VIEW, PORTABLE ([id number]) INDICATIONS: SHORTNESS OF BREATH TECHNIQUE: One view of the chest was acquired. COMPARISON: [facility], CR, XR CHEST 1VW (PORTABLE), 11/02/2016, 4: 01. [facility], CR, XR CHEST 1VW (PORTABLE), 11/01/2016, 18:14. FINDINGS: Surgical changes and devices: None. Lungs and pleura: No pleural effusions or pneumothorax. Mild diffuse interstitial pulmonary opacity with basilar predominance. Mediastinum: Mediastinal contours appear normal. Heart size is normal. Bones and chest wall: No suspicious bony lesions. Overlying soft tissues appear unremarkable. IMPRESSION: Mild atypical pneumonia. Dictated by: Leslie Sibley M.D. on 04/07/2017 at 18:01 Approved by: Leslie Sibley M.D. on 04/07/2017 at 18:01 ECG 12 Lead EKG performed 04/07/17, sinus rhythm rate of [address] changes Brief History 66yoF with past medical history of COPD and respiratory failure admitted with COPD exacerbation. Patient stated that since prior admission in 10/2016 she has continued to have difficulties with her COPD. 2-3 weeks ago she was seen in urgent care for COPD exacerbation and given antibiotics and a steroid taper. She improved with this treatment however when steroid taper was complete symptoms gradually came back. Over the past week patient states that her breathing has become progressively worse. Nebulizers and inhalers have become ineffective. Her at bedside endorses wheezing that could be heard "from across the house". While patient does mention that she has improved since presentation she continues to be far from baseline in regards to her breathing which is also causing increase in her anxiety. Mrs. Finley does have a history of COPD requiring intubation. During her last admission 10/2016 she required bipap on admission and required intubation with subsequent trach placement secondary to COPD. Hospital Course 66yoF with past medical history of COPD and respiratory failure admitted with COPD exacerbation and suspected community-acquired pneumonia. Hospital day 4 COPD exacerbation, acute, POA, ongoing -patient with history of severe COPD requiring intubation and trach during prior admission -reported as severe at urgent care however improved following presentation in ED -Oral prednisone 40 mg daily -albuterol neb q2PRN -albuterol ipratropium neb q4HR scheduled -Azithromycin 500 mg daily -please ensure patient has spacer on discharge -Per respiratory therapy, on 04/02/17 patient became very wheezy and desaturated the upper 80s after walking 100 feet. This resolved with 3 L nasal cannula and rest. We will hold onto her for 1 more day. -Patient has oxygen at home though she does not use it regularly. We will encourage home use of oxygen. -We have ordered home health and physical therapy CAP, acute, POA, ongoing -CXR consisted with pneumonia - WC 11.4 on admission, 2.3 on 04/09/17, at that this point is likely due to steroid administration -ceftriaxone started in ED, will continue -MRSA screen negative, strep urine antigen negative - Viral PCR negative -Sputum sample obtained 04/10/17 for culture Elevated blood glucose, acute, POA, ongoing -no history of diabetes -130 today likely elevated from methylpred -hgbA1c 5.8 on 04/07/17 Anxiety and depression, chronic, POA -continue home paroxetine The plan is to discharge patient on 04/11/17. She has an appointment to see a restrooms or lounges maid in [place] and have a PFT performed. Exam Vital Signs (Last) Date Time Temp Pulse Resp B/P Pulse Ox O2 Delivery O2 Flow Rate FiO2 04/11/17 05:14 84 22 96 Nasal Cannula 2.00 04/11/17 03:13 36.9 164/84 Test 04/07/17 17:53 04/07/17 21:15 04/08/17 05:08 04/09/17 04:28 Hemoglobin A1c 5.8% (4.8-5.6) Lactic Acid Level 1.3mmol/L (0.4-2.0) Magnesium Level 2.0mg/dL (1.6-2.6) Troponin T < 0.010ug/L (0.0-0.011) Pro-B-Type Natriuretic Peptide 257.5pg/mL (0-301) Urine Color Yellow (YELLOW) Urine Appearance Clear (CLEAR,HAZY) Urine pH 5.0 (5.0-8.0) Urine Specific [place] 1.030 (1.003-1.035) Urine Protein Negativemg/dL (NEG,TRACE) Urine Glucose (UA) Negativemg/dL (NEGATIVE) Urine Ketones Negativemg/dL (NEGATIVE) Urine Occult Blood Negative (NEGATIVE) Urine Nitrite Negative (NEGATIVE) Urine Bilirubin Negative (NEGATIVE) Urine Urobilinogen Normalmg/dL (NORMAL) Urine Leukocyte Esterase Trace (NEGATIVE) Urine RBC 0-2/hpf (0-2) Urine WBC 0-5/hpf (0-5) Urine Epithelial Cells Few/hpf (NONE-MOD) Urine Crystals None seen (NONE SEEN) Urine Bacteria Few/hpf (NONE-FEW) Urine Hyaline Casts None/lpf (NONE) Urine Granular Casts None seen (NONE SEEN) Urine Waxy Casts None seen (NONE SEEN) Urine Red Blood Cell Casts None seen (NONE SEEN) Urine White Blood Cell Casts None seen (NONE SEEN) Urine Mucus None seen (None Seen) Urine Trichomonas None seen (NONE SEEN) Urine Yeast None (NONE SEEN) Urinalysis Comment None Urine Culture Reflexed Indicated Neutrophils (%) (Auto) 88.3% (40-74) Lymphocytes (%) (Auto) 11.0% (14-46) Monocytes (%) (Auto) 0.5% (4-12) Eosinophils (%) (Auto) 0% (0-5) Basophils (%) (Auto) 0% (0-3) Procalcitonin 0.04ng/mL (0.00-0.08) Test 04/10/17 02:55 04/11/17 02:55 Total Bilirubin 0.2mg/dL (0.0-1.2) Aspartate Amino Transf (AST/SGOT) 24U/L (0-50) Alanine Aminotransferase (ALT/SGPT) 26U/L (0-32) Alkaline Phosphatase 83U/L (25-165) Total Protein 5.7g/dL (6.4-8.4) Albumin 3.7g/dL (3.4-5.0) White Blood Count 12.7th/mm3 (3.8-10.1) Red Blood Count 4.41mil/mm3 (3.90-5.20) Hemoglobin 13.9g/dL (12.0-15.6) Hematocrit 42.8% (35.0-46.0) Mean Corpuscular Volume 97.1fL (81-100) Mean Corpuscular Hemoglobin 31.5pg (27.0-35.0) Mean Corpuscular Hemoglobin Concent 32.5% (32.0-37.0) Red Cell Distribution Width 14.8% (12.3-15.4) Platelet Count 346bil/L (150-400) Sodium Level 141mEq/L (134-144) Potassium Level 4.8mEq/L (3.5-5.2) Chloride Level 101mEq/L (97-108) Carbon Dioxide Level 28mmol/L (18-29) Blood Urea Nitrogen 16mg/dL (8-27) Creatinine 0.64mg/dL (0.57-1.00) Estimat Glomerular Filtration Rate 133mL/min (>59) Glucose Level 89mg/dL (60-99) Calcium Level 9.2mg/dL (8.5-10.1) Discharge Medications Discharge Medications Alendronate/Vitamin D3 (Alendronate/Vitamin D3) 1 Each Tablet 1 TAB PO every friday (Reported) Fluticasone/Salmeterol (Advair 250-50 Diskus) 60 Puff/Inh Disk 1 PUFF IH BID ( Reported) Guaifenesin (Guaifenesin ER) 600 Mg Tab.er.12h 1,200 MG PO Q12 Prescribed by: BJORN LEZAMA DO Pantoprazole DR (Pantoprazole DR) 20 Mg Tablet.dr 20 MG PO BID Prescribed by: BJORN LEZAMA DO Paroxetine (Paroxetine) 40 Mg Tablet 40 MG PO HS (Reported) Prednisone (Deltasone) 20 Mg Tablet 40 MG PO DAILY Prescribed by: BJORN LEZAMA DO Tiotropium [place] (Spiriva) 18 Mcg Cap.w.dev 18 MCG IH DAILY (Reported) As needed Albuterol Neb Soln (Albuterol Neb Soln) 2.5 Mg/3 Ml Vial.neb 2.5 MG INHALATION Q4H PRN PRN For Shortness of Breath (Reported) Albuterol Sulfate (Ventolin HFA Inhaler) 200 Puff/18 Gm Inhaler 1-2 PUFFS INH q4 hours PRN PRN For Shortness of Breath (Reported) Additional med instructions We are sending you home with a 5 day course of prednisone. Take 2 of the 20 mg tablets twice daily.Your Pulmonary Dr. can change this if necessary. We are also continuing you on guaifenesin 1200 mg twice daily for 5 days. We are also sending you home with a 30 day supply of pantoprazole for acid reflux. Please take one 20 mg tablet twice daily. Followup Plan Follow-up plan Follow-up with primary care provider in 1-2 weeks. Discharge Diet: Heart Healthy Discharge Activity: Limited until seen by PCP Patient Instructions Please follow-up with your pulmonary doctor today at noon, and follow any instructions may have for you. Please see your primary care physician 1-2 weeks. We are working on getting you home health to assist you with your COPD symptom management. We are also working on getting you physical therapy at home to make you stronger. Please seek medical attention if you start having worsening shortness of breath , chest pain or dizziness. Follow-up Provider: Shimon Joshi MD Follow-up with PCP in: 1 week Bjorn Lezama DO Apr 11, 2017 06:59 Guilherme Granados MD Apr 13, 2017 09:18
[2017-04-11] MEDS: Azithromycin Inj 500 MG in Dextrose 5% w/Vial Mate 250 ML IV SCH (07:46)
[2017-04-11] MEDS: Pantoprazole 20 mg ER24 Tablet PO SCH ×2 (07:46→21:15)
[2017-04-11] MEDS: guaiFENesin 600 mg ER12 Tablet PO SCH ×2 (07:46→21:15)
[2017-04-11] MEDS: predniSONE 20 mg Tablet PO SCH (07:47)
[2017-04-11] MEDS ORDERED: MethylprednisoLONE Sodium Succinate 62.5 mg/mL 2 mL Inj IVPUSH ONE (08:45)
--- NOTE | 2017-04-11 09:42 | ABG ---
DateTimeAnalyzed 09:34:00 -_ pH ____7.420 - 7.350 7.450 pCO2 ___43.3__ -mmHg 35.0 45.0 pO2 ___60.5__ -mmHg 80.0 100 HCO3- ___27.6__ -mmol/L 22.0 26.0 ABE ____3.1__ -mmol/L -2.0 2.0 tHb ___14.8__ -g/dL 12.0 18.0 O2Hb ___90.0__ -% COHb ____1.0__ -% 1.5 MetHb ____0.7__ -% 0.4 1.5 sO2 ___91.5__ -% 95.0 FIO2 ___28.0__ -% Drawn By jj - Date/Time Notified____ 09:41:00 -_ Liter_Flow ____2.0__ -L/min Oxygen Device 1 __CANNULA - Notified By jj - Notified Whom dr maria luisa - B 755 -mmHg tO2 ___18.7__ -Vol% Ba test _Positive -
--- NOTE | 2017-04-11 10:38 | NUR ---
NUTRITION ASSESSMENT: ASSESS: Pt is a 66yo F admitted for acute COPD exacerbation. She is on a heart healthy diet with variable PO from 0-100%. 0 BM x4 days. Of note, pts wt has increased by 5kg from last admit 11/02/16. During last admit, pts wt was at its lowest 38kg with BMI of 14.8kg/m2. Current BMI is 18.1kg/m2. WT has been stable during this admit PMHX: Chronic respiratory failure, COPD, Anxiety LABS: Reviewed. WNL MEDS: Reviewed. Prednisone GI: 0 BMx4 days SKIN: no major issues CURRENT WTS: 46.4kg, BMI 18.1kg/m2, UBW: 43kg, admit wt 46.3kg. IBW: 52.3kg DIET: HH, PO 0-100% EST. NEEDS: COPD Kcals: 1390-1625kcal/day (30-35kcal/kg) Pro: 55-70g/day (1.2-1.5g/kg) NUTRITION DIAGNOSIS: 1.) Increased kcal/pro needs related to chronic disease as evidence by COPD and history of being underwt. NUTRITION INTERVENTION: 1.) Continue current diet. Will add Ensure on L tray. 2.) Will continue to monitor for BM. Recommend scheduled bowel meds to avoid constipation. MONITOR / EVAL: wt, PO, BM, POC, nutrition status. Will continue to monitor per moderate nutrition risk guidelines
--- NOTE | 2017-04-11 11:10 | PCM.PNMED ---
Subjective Date of Service Apr 11, 2017 Subjective Overnight: Per nursing notes patient's remained wheezy and coarse. Scheduled and when necessary nebs both administered Today: Patient seen and examined. also present in room at time of examination. 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 She gets significantly short of breath even when rising from a sitting to standing position and rapidly decompensates. She states this is far worse than her reported baseline. Exam Vital Signs Vital Sign - Last Date Time Temp Pulse Resp B/P Pulse Ox O2 Delivery O2 Flow Rate FiO2 04/11/17 07:53 88 24 93 Nasal Cannula 2.00 04/11/17 07:50 37.0 173/92 Intake and Output 04/10/17 04/10/17 04/11/17 Cumulative From/Thru 15:00 23:00 07:00 04/07/17 17:11 - 04/11/17 05:50 Intake Total 593 ml 255 ml 3673 ml Output Total 800 ml 300 ml 4350 ml Balance -207 ml -45 ml -677 ml Intake Oral 593 ml 200 ml 2293 ml IV Total 55 ml 1380 ml Output Urine Total 800 ml 300 ml 4350 ml Other 0 ml 0 ml # Voids 2 Exam General: Awake and alert sitting up in hospital bed in mild to moderate respiratory distressed. Mal-nourished, appropriately interactive HEENT: Normocephalic, atraumatic. Moist mucosa Neck: Supple with full range of motion. No jugular venous distension. Cardiovascular: Regular rate and rhythm with no murmurs, rubs, or gallops appreciated Pulmonary: Coarse breath sounds in all lung beavers, expiratory wheezes audible without stethoscope. Poor air movement with some use of accessory scalene muscles Abdomen: Soft, nontender Extremities: No clubbing, cyanosis, edema. Cachectic Skin: Normal temperature, turgor Neurological: Cranial nerves grossly intact. Psychiatric: Normal mood and affect. Alert and oriented to person, place, and time. IVs and Medications Medications Reviewed: Medications were reviewed in detail Lab and Diagnostics Result Diagram: 04/11/17 0255 04/11/17 0255 X-Rays, CTs and MRIs . X-RAY CHEST ONE VIEW, PORTABLE IMPRESSION: Mild atypical pneumonia. Dictated by: Leslie Sibley M.D. on 04/07/2017 12-lead ECG EKG performed 04/07/17, sinus rhythm rate of [address] changes Additional Diagnostics DateTimeAnalyzed 09:34:00 -_ pH ____7.420 - 7.350 7.450 pCO2 ___43.3__ -mmHg 35.0 45.0 pO2 ___60.5__ -mmHg 80.0 100 HCO3- ___27.6__ -mmol/L 22.0 26.0 ABE ____3.1__ -mmol/L -2.0 2.0 tHb ___14.8__ -g/dL 12.0 18.0 O2Hb ___90.0__ -% COHb ____1.0__ -% 1.5 MetHb ____0.7__ -% 0.4 1.5 sO2 ___91.5__ -% 95.0 FIO2 ___28.0__ -% Drawn By jj - Date/Time Notified____ 09:41:00 -_ Liter_Flow ____2.0__ -L/min Oxygen Device 1 __CANNULA - Notified By jj - Notified Whom dr maria ulisa - B 755 -mmHg tO2 ___18.7__ -Vol% Ba test _Positive - Assessment & Plan 66yoF with past medical history of COPD and respiratory failure admitted with COPD exacerbation and suspected community-acquired pneumonia. Hospital day 5. COPD exacerbation, acute, POA, ongoing -patient with history of severe COPD requiring intubation and trach during prior admission -Oral prednisone 40 mg daily -albuterol neb q2PRN -albuterol ipratropium neb q4HR scheduled -Azithromycin 500 mg daily -Patient has oxygen at home though she does not use it regularly. We will encourage home use of oxygen. -We have ordered home health and physical therapy -Scheduled for discharge today, however worsening respiratory symptoms prevented this -1 dose IV Solu-Medrol 125 mg given -CT chest with and without contrast ordered, results pending -ABGs showed low pO2 at 60, though pH, pCO2 and bicarbonate were essentially normal -Continue duo nebs, supplemental oxygen -Respiratory therapy will evaluate patient later in the day CAP, acute, POA, ongoing -CXR consisted with pneumonia - WC 11.4 on admission, 2.3 on 04/09/17, at that this point is likely due to steroid administration -ceftriaxone started in ED, will continue -MRSA screen negative, strep urine antigen negative - Viral PCR negative -Sputum sample obtained 04/10/17 for culture -Repeat pro calcitonin pending, urine Legionella pending Elevated blood glucose, acute, POA, ongoing -no history of diabetes -130 today likely elevated from methylpred -hgbA1c 5.8 on 04/07/17 Anxiety and depression, chronic, POA -continue home paroxetine Protein calorie malnutrition. Present on admission. Ongoing -Dietitian consult, recommendations appreciated Disposition: Patient will be reevaluated today after imaging completed, possible discharge tomorrow based on response to increased steroids and ongoing therapy. GI Prophylaxis: Not indicated VTE Prophylaxis: Sub-Q Heparin (Unfractionated) VTE Mechanical Devices: Intermittant Pneumatic CD Resuscitation Status: CPR: Attempt Resuscitation Attending Statement The patient was seen and examined together with Dr. Weems on 04/11/2017 and I agree with the history, exam and plan as outlined in the note above. . HILTON WEEMS DO Apr 11, 2017 11:10 Guilherme Granados MD Apr 11, 2017 16:44
--- NOTE | 2017-04-11 16:00 | DRSVH ---
PROCEDURE: CT ANGIO CHEST PULMONARY EMBOLISM ([id number]) INDICATIONS: Worsening SOB TECHNIQUE: After the administration of intravenous contrast, 2 mm thick sections acquired from the pulmonary api allan to the posterior costophrenic angles. 3-dimensional maximum intensity projection (MIP) coronal a nd sagittal reformats were then acquired through the thorax. For radiation dose reduction, the follo wing was used: automated exposure control, adjustment of mA and/or kV according to patient size. COMPARISON: [facility] , CT, CHEST/ABD/PELVIS W/CON (PNL), 12/18/2007, 7:31. [facility], CT, CT CHEST WO CON, 12/17/2016, 13:03. FINDINGS: Image quality: Excellent. Pulmonary arteries: Pulmonary arteries are normal in size, and demonstrate no intraluminal filling d efects to suggest central pulmonary embolism. Lungs and pleura: There is moderate to severe centrilobular emphysema. A 5 mm nodule is seen within superior segment of the left lower lobe just below the major fissure (series 5 image 21), which is no t seen on the last chest CT. No infiltrate or pleural effusion. No pleural effusions or pneumothorax . Central and peripheral airways are patent. Mediastinum: Heart size is normal, without pericardial effusion. No mediastinal or hilar adenopathy . Thoracic aorta is normal in caliber and enhancement. Esophagus is normal in caliber. Small hiatal hernia. Bones and chest wall: Mild compression fracture of T12. No suspicious bony lesions. Ribs and thorac ic spine appear intact throughout. Thyroid gland is normal. No axillary or supraclavicular adenopat hy. Abdomen: Visualized upper abdominal solid organs appear normal in the early arterial phase of enhanc ement. IMPRESSION: 1. No evidence for central pulmonary embolism. 2. Severe emphysema. 3. A new 5 mm lung nodule in the superior segment of the right lower lobe. Recommend followup CT (see recommendation at the end of the report). Fleischner Society criteria for SOLID lung nodule followup. Nodule size (mm)Low-risk patientHigh-risk [id number] follow-up neededFollow-up at 12 mo; if no moctezuma e, no further follow-up>0-1Wpcsei-ic CT at 12 mo; if no change, no further follow-up needed.Initial f ollow-up CT at 6-12 mo, then 18-24 mo if no change. >6-8Initial follow-up CT at 6-12 mo, then 18-24 mo if no change. Initial follow-up CT at 3-6 mo, then 9-12 mo and 24 mo if no change. >8Follow-up CT at 3, 9, 24 mo. Or PET and/or biopsy.Same as for low-risk pts. Fleischner Society criteria for SUB-SOLID lung nodule followup. Solitary pure ground-glass nodules5 mm or lessNo followup needed. >5 mm3 mo follow-up CT to confirm persistence. Then annual CT for 3 years. Part-solid nodules3 mo follow-up CT to confirm persistence . If persistent with solid component <5 mm, annual CT for at least 3 years. If solid component is 5 mm or more, biopsy or surgical resection. Consider PET-CT for lesions > 10 mm. Multiple sub-solid nodulesPure ground glass nodules [address] at 2 and 4 years. Pure ground glass nodules >5 mm without dominant lesion. [address] to confirm persistence, then annual followup CT for at least 3 years. Dominant nodule(s) with part-solid or solid component. [address] to confirm persistence. If persistent, consider biopsy or surgical resection, mabel if lesions have >5 m m solid component. Dictated by: Boo Arango M.D. on 04/11/2017 at 15:53 Approved by: Boo Arango M.D. on 04/11/2017 at 15:58
--- NOTE | 2017-04-11 17:47 | NUR ---
Respiratory Pt presently on 3L O2 nasal cannula. She reports SOB with activity or talking. Minimal desat with activity noted. She does have an observable increase in wheezing and tachypnea, and increased work of breathing after minimal activity. Pt is anxious at time due to SOB. Continuing with scheduled neb treatments.
[2017-04-11] MEDS: cefTRIAXone Inj 2,000 MG in Dextrose 5% Minibag Plus 50 ML IV SCH (21:14)
[2017-04-11] MEDS: PARoxetine 20 mg Tablet PO SCH (21:15)
[2017-04-12] VITALS (17 sets, daily range): BP systolic 108–150; BP diastolic 73–86; PULSE 75–109; RESP 16–22; O2SAT 90–98
[2017-04-12] MEDS: Albuterol-Ipratropium 3 mL Inhalation Solution NEB SCH ×8 (00:37→23:55)
[2017-04-12 02:55] LABS: BASOPHILS % (AUTO) 0.2 % (0-3); EOSINOPHILS % (AUTO) 0.2 % (0-5); Mean Corpuscular Hemoglobin 31.4 pg (27.0-35.0); Mean Corpuscular Volume 96.6 fL (81-100); NEUTROPHILS % (AUTO) 72.3 % (40-74); Platelet Count 363 bil/L (150-400)
[2017-04-12 03:20] LABS: Magnesium 2.3 mg/dL (1.6-2.6)
--- NOTE | 2017-04-12 06:41 | NUR ---
Respiratory Patient's breath sounds notably coarse and wheezy at rest. Patient woke from sleep feeling increasingly short of breath with painful coughing and inability to clear secretions. SpO2 down to 89%. Increased patient's O2 to 4L and encouraged patient to sit up at bedside and use her acapella. Patient agreed and cough effectiveness improved; SpO2 increased to 94% and maintained when O2 was turned back to the original 3L via nasal cannula. Patient reports feeling better.
[2017-04-12] MEDS: predniSONE 20 mg Tablet PO SCH (08:57)
[2017-04-12] MEDS: Azithromycin Inj 500 MG in Dextrose 5% w/Vial Mate 250 ML IV SCH (08:57)
[2017-04-12] MEDS: guaiFENesin 600 mg ER12 Tablet PO SCH ×2 (08:58→19:57)
[2017-04-12] MEDS: Pantoprazole 20 mg ER24 Tablet PO SCH ×2 (08:58→19:58)
[2017-04-12] MEDS ORDERED: Mupirocin 2% 22 Gm Ointment TOPICAL ONE (10:45)
[2017-04-12] MEDS: Theophylline 100 mg ER12 Tablet PO SCH ×2 (13:51→19:58)
--- NOTE | 2017-04-12 15:13 | PCM.PNMED ---
Subjective Date of Service Apr 12, 2017 Subjective Patient was seen and examined today. She is still having significant trouble breathing even at rest, with use of accessory muscles. We discussed keeping her another day and she is fine with this. Nursing notes that she woke up last night short of breath and her oxygen was increased to 4 L. Her symptoms resolved with acceptable O2 saturations and was again decreased to 3 L nasal cannula. Exam Vital Signs Vital Sign - Last Date Time Temp Pulse Resp B/P Pulse Ox O2 Delivery O2 Flow Rate FiO2 04/12/17 12:32 36.7 109 22 148/73 90 Nasal Cannula 3.00 Intake and Output 04/11/17 04/11/17 04/12/17 Cumulative From/Thru 15:00 23:00 07:00 04/07/17 17:11 - 04/12/17 06:42 Intake Total 900 ml 643 ml 5216 ml Output Total 900 ml 800 ml 6050 ml Balance 0 ml -157 ml -834 ml Intake Oral 900 ml 600 ml 3793 ml IV Total 43 ml 1423 ml Output Urine Total 900 ml 800 ml 6050 ml Other 0 ml # Voids 2 Exam General: Mild respiratory distress, pleasant and interactive HEENT: Normocephalic, atraumatic. Neck: Supple with full range of motion. No jugular venous distension. No bruits. Cardiovascular: Regular rate and rhythm with no murmurs, rubs, or gallops appreciated Pulmonary: Coarse breath sounds throughout significant rhonchi and wheezing. Diminished lung sounds on the right base. Using accessory muscles. Abdomen: Bowel tones present. Soft, nontender, nondistended. Extremities: No clubbing, cyanosis, edema. Skin: Normal temperature, turgor, and texture Neurological: Cranial nerves grossly intact. Decreased muscle mass throughout Psychiatric: Normal mood and affect. Alert and oriented to person, place, and time. IVs and Medications Medications Reviewed: Medications were reviewed in detail Lab and Diagnostics Result Diagram: 04/12/17 0250 04/12/17 0250 X-Rays, CTs and MRIs . X-RAY CHEST ONE VIEW, PORTABLE IMPRESSION: Mild atypical pneumonia. Dictated by: Leslie Sibley M.D. on 04/07/2017 CT Rhonda performed 04/11/2017 IMPRESSION: 1. No evidence for central pulmonary embolism. 2. Severe emphysema. 3. A new 5 mm lung nodule in the superior segment of the right lower lobe. Recommend followup CT 12-lead ECG EKG performed 04/07/17, sinus rhythm rate of [address] changes Additional Diagnostics DateTimeAnalyzed 09:34:00 -_ pH ____7.420 - 7.350 7.450 pCO2 ___43.3__ -mmHg 35.0 45.0 pO2 ___60.5__ -mmHg 80.0 100 HCO3- ___27.6__ -mmol/L 22.0 26.0 ABE ____3.1__ -mmol/L -2.0 2.0 tHb ___14.8__ -g/dL 12.0 18.0 O2Hb ___90.0__ -% COHb ____1.0__ -% 1.5 MetHb ____0.7__ -% 0.4 1.5 sO2 ___91.5__ -% 95.0 FIO2 ___28.0__ -% Drawn By jj - Date/Time Notified____ 09:41:00 -_ Liter_Flow ____2.0__ -L/min Oxygen Device 1 __CANNULA - Notified By jj - Notified Whom dr maria luisa - B 755 -mmHg tO2 ___18.7__ -Vol% Ba test _Positive - Assessment & Plan 66yoF with past medical history of COPD and respiratory failure admitted with COPD exacerbation and suspected community-acquired pneumonia. Hospital day 6. COPD exacerbation, acute, POA, ongoing -patient with history of severe COPD requiring intubation and trach during prior admission -Oral prednisone 40 mg daily -albuterol neb q2PRN -albuterol ipratropium neb q4HR scheduled -Azithromycin 500 mg by mouth daily -Theophylline 300 mg twice a day started 04/12/2017 -Patient has oxygen at home though she does not use it regularly. We will encourage home use of oxygen. -We have ordered home health and physical therapy -CT chest with and without contrast performed 04/11/2017 demonstrates severe emphysema -ABGs showed low pO2 at 60, though pH, pCO2 and bicarbonate were essentially normal -Patient has pulmonology appointment on May 30 -She will go home with [facility] CAP, acute, POA, ongoing - WC 11.4 on admission, 2.3 on 04/09/17, at that this point is likely due to steroid administration -ceftriaxone discontinued on 04/12/2017, as CT does not show evidence of pneumonia -MRSA screen negative, strep urine antigen negative - Viral PCR negative -Sputum sample obtained 04/10/17 for culture demonstrates mixed normal scotty -Repeat pro calcitonin 0.06 Nasal ulcer, present on admission, ongoing -Mupirocin ointment applied intranasally twice daily Elevated blood glucose, acute, POA, ongoing -no history of diabetes -likely elevated from methylpred -hgbA1c 5.8 on 04/07/17 Anxiety and depression, chronic, POA -continue home paroxetine Protein calorie malnutrition. Present on admission. Ongoing -Dietitian consult, recommendations appreciated Disposition: We are keeping the patient at least another day and to her COPD exacerbate wallis is under better control Pain Evaluation: Adequate Pain Control GI Prophylaxis: Not indicated VTE Prophylaxis: Sub-Q Heparin (Unfractionated) VTE Mechanical Devices: Intermittant Pneumatic CD Resuscitation Status: CPR: Attempt Resuscitation Attending Statement The patient was seen and examined together with Dr. Ramirez on 04/12/2017 and I agree with the history, exam and plan as outlined in the note above. . Bjorn Ramirez DO Apr 12, 2017 15:13 Guilherme Granados MD Apr 13, 2017 09:17
--- NOTE | 2017-04-12 18:30 | NUR ---
Respiratory Pt continuing to saturate well on 3L nasal cannula with only minimal desat with activity (and quickly recovering). Reports that she feels less SOB than yesterday and she is wheezing less than yesterday. Continuing with scheduled nebulizers. Continue to encourage pt to use acapella.
[2017-04-12] MEDS: PARoxetine 20 mg Tablet PO SCH (19:58)
--- NOTE | 2017-04-12 22:05 | NUR ---
TELE/O[address] 100's with minimal activity, on 3L NC sating low 90's. Pt slightly anxious about recent respiratory issues, but ready to D/C in AM.
== END 2017-04-13 01:21 | disposition admitted as inpatient to this hospital (09) | DRG 190 ==
LOC: SED 16:49 → PCC 20:16 → OBSVTOIN 20:16
PROVIDERS: ADMIT Internal Medicine; ATTEND Internal Medicine
DX: J44.1 Chronic obstructive pulmonary disease with (acute) exacerbation (principal); J18.9 Pneumonia, unspecified organism; R64 Cachexia; Z68.1 Body mass index [BMI] 19.9 or less, adult